=== PATIENT | female | born 1945 | race Two or more races ===

== ENCOUNTER → 2016-03-24 | Outpatient (CLI) | payer OTHER, MEDICARE ==
--- NOTE | 2016-03-24 16:17 | DX ---
Lumbar Spine, Two Views, at 12:31 hours Indication: Chronic pain. Technique: Upright AP and lateral views. Comparison: Sagittal reconstruction of the CT abdomen and pelvis dated April 18, 2015. Findings: 9 mm of anterolisthesis of L4 on L5, severe degenerative disk disease at L4-L5 and L5-S1, and mild to moderate degenerative disk disease at T11-T12 are all unchanged. The lumbar spine is oth erwise anatomically aligned. Large volume retained stool is present throughout the colon. The abdom inal aorta is normal caliber, with moderate calcified plaque. Impression: 1. Severe degenerative disk disease at L4-L5 and L5-S1 and grade 1 spondylolisthesis of L4 on L5 are unchanged since April 2015. 2. No acute compression fracture or bone lesion. 3. Constipation.
--- NOTE | 2016-03-24 16:55 | DX ---
Left Hip, Two Views Indication: Chronic pain. Technique: AP and frog-leg lateral views. Comparison: Portable pelvis dated December 27, 2014. Findings: The left total hip arthroplasty is well seated. No perihilar hardware fracture or lucency. Minimal osteoarthritis involves the sacroiliac joints and pubic symphysis. Right hip joint space is w ell preserved. Impression: 1. Well seated left total hip arthroplasty. 2. No fracture or stress response.
== END ==
LOC: FIMAGING 12:16
PROVIDERS: ATTEND Orthopaedic Surgery Orthopaedic Surgery of the Spine
DX: M51.37 Other intervertebral disc degeneration, lumbosacral region (principal); M51.36 Other intervertebral disc degeneration, lumbar region; M25.559 Pain in unspecified hip

== ENCOUNTER → 2016-04-01 | Outpatient (CLI) | payer OTHER, MEDICARE ==
--- NOTE | 2016-04-02 06:34 | MR ---
MRI of the Lumbar Spine (Without Contrast) Indication: Pain. Evaluate lumbar spine stenosis. Technique: Sagittal and axial T1 and T2 , and sagittal STIR MR sequences of the lumbar spine without contrast. Axial imaging from T12-S1. Comparison: Lumbar spine radiographs dated March 24, 2016 Findings: L4 is anterolisthesed 9 mm on L5. The lumbar spine is otherwise anatomically aligned. Disko genic Modic changes involve the L4-L5, L5-S1, and to a lesser degree T11-T12 levels. The bone marrow signal is otherwise normal. No compression fracture, pars defect, or bone marrow replacing lesion. The paraspinal soft tissues are normal. The aorta is normal caliber. The conus medullaris is at L1. T12-L1: Disk desiccation and minimal facet hypertrophy. Central canal and neural foramina are widely patent. L1-L2: Minimal facet hypertrophy. Normally hydrated disks. No central canal or neural foraminal steno sis. L2-L3: Facet hypertrophy and ligamentum flavum thickening results in minimal central canal narrowing and minimal bilateral neural foraminal narrowing. The disk is normally hydrated. L3-L4: Minimal posterior disk bulge, disk desiccation, facet hypertrophy and ligamentum flavum thicke namrata result in mild central canal narrowing and mild bilateral neural foraminal stenosis. The central canal measures 9 mm AP. L4-L5: Anterolisthesis of L4 on L5 combined with diffuse broad-based disk bulge, facet hypertrophy an d ligamentum flavum thickening results in severe central canal narrowing and severe bilateral neural foraminal stenosis, worse right than left. The central canal measures 4 mm AP. No cerebrospinal fluid is present around the compressed central nerve roots. The ventral lateral recess is severely narrowe d likely affecting the L5 nerve roots as they course through the L5-S1 neural foramina. L5-S1: Severe degenerative disk disease evidenced by disk height loss, disk desiccation, and uncovert ebral spurs. Moderate facet hypertrophy and ligamentum flavum thickening are present. Mild central ca nal narrowing and severe left and moderate to severe right neural foraminal stenosis. Impression: 1. Severe central canal and neural foraminal stenosis at L4-L5 due to diffuse broad-based disk bulge, anterolisthesis of L4 on L5, and facet hypertrophy. 2. Severe left and moderate to severe right neural foraminal narrowing at L5-S1 due to diffuse broad- based disk bulge, uncovertebral spurs and facet arthropathy. 3. No compression fracture or bone lesion.
== END ==
LOC: FIMAGING 15:13
PROVIDERS: ATTEND Orthopaedic Surgery Orthopaedic Surgery of the Spine
DX: M48.06 Spinal stenosis, lumbar region (principal); M48.07 Spinal stenosis, lumbosacral region; M51.86 Other intervertebral disc disorders, lumbar region; M51.87 Other intervertebral disc disorders, lumbosacral region; M43.16 Spondylolisthesis, lumbar region

== ENCOUNTER → 2016-05-12 | Outpatient (CLI) | payer OTHER, MEDICARE | LOC: FIMAGING 13:17 | DX: Z12.31 Encounter for screening mammogram for malignant neoplasm of breast (principal); Z85.3 Personal history of malignant neoplasm of breast; Z80.3 Family history of malignant neoplasm of breast | CPT/HCPCS: G0202 ==

== ENCOUNTER → 2016-05-13 | Outpatient (CLI) | payer OTHER, MEDICARE | LOC: FIMAGING 14:16 | PROVIDERS: ATTEND Neurological Surgery | DX: M54.5 Low back pain (principal); M43.16 Spondylolisthesis, lumbar region; M51.36 Other intervertebral disc degeneration, lumbar region; M48.06 Spinal stenosis, lumbar region ==

== ENCOUNTER → 2016-06-06 | Emergency (ER) | payer OTHER, MEDICARE ==
[~2016-06-06] MED LIST: ASPIRIN 81 MG CHEWABLE TAB PO ONE; HYOSCYAMINE SULFATE 0.125 MG TAB PO ONE; LIDOCAINE 2% VISCOUS 15 ML UDCUP PO ONE; MAG HYDROX/AL HYDROX/SIMETH 30 ML UDCUP PO ONE
--- NOTE | 2016-06-06 18:11 | EDPHY ---
H & P Stated Complaint: CHEST TIGHTNESS FOR 2 HRS HPI/ROS: CHIEF COMPLAINT: Chest tightness HISTORY OF PRESENT ILLNESS: The patient is a 70 y/o female arriving with her complaining of chest tightness with onset about 2.5 hours prior to arrival. She has a medical history that includes hypertension, hyperlipidemia, valvular disease, and GERD. She was most recently admitted in January 2016 for chest pain and had a cardiac work up that was negative; she did not have a stress test at that time but was scheduled for 1 as an outpatient. Per her recollection she had this testing done and there were no significant issues. She does not think she has ever had a cardiac catheterization. She has worn a Holter monitor twice, once in 2014 and again in August of 2015. She has had 3 echocardiograms within the last 4 years--1 in January of 2013, 1 in August of 2015, and 1 in January of 2016. Today, she walked her dog for about 30 minutes around 15:00 and felt normal at that time. Upon returning home, she developed chest pressure that has persisted. She cannot identify alleviating or aggravating factors. She does not describe the sensation as pain and denies radiation, dyspnea, nausea, or diaphoresis. She did not take any medication for it. She denies diabetes and has a remote history of smoking. She is unsure if cardiac disease runs in her family. REVIEW OF SYSTEMS: A ten point review of systems was performed and is negative with the exception of the items mentioned in the HPI. She notes that she has memory problems and states that these have been present since a stroke that she had while hospitalized in 2015. Source: Patient, Family - Personal History Current Tetanus/Diphtheria Vaccine: Yes Tetanus Vaccine Date: within 10 years - Medical/Surgical History PMH: PMH includes: 1. Breast Cancer - lumpectomy, radiation 2. Hypertension 3. Anemia secondary to gastric ulcer; GERD 4. Hypothyroidism 5. Depression 6. Migraines 7. Hyperlipidemia 8. Hypothyroidism 9. LBBB 10. Chronic low back pain 11. Left ventricular outflow obstruction 12. 13. Reports having a CVA with ongoing memory issues, though this is not reflected in our records. Prior medical records reviewed including admission 01/25/16 for chest pain. 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 Vargas Hx Asthma: No Hx Chronic Respiratory Disease: No Hx Diabetes: No Hx Cardiac Disease: Yes Hx Renal Disease: No Hx Cirrhosis: No Hx Alcoholism: No Hx HIV/AIDS: No Hx Splenectomy or Spleen Trauma: No Other PMH: pmh- hypothyroidism, depression, LBBB, hld, mitral valve reguritation , breast ca 1995 status post lumpectomy and radiation. psh- , R breast lumpectomy (cancerous) - Social History Smoking Status: Former smoker Additional Social History: Former smoker, quit over 30 years ago. 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 No alcohol use. at bedside. No illicit drugs. - Physical Exam Exam: General Appearance: Alert. Vital signs reviewed. Initial blood pressure 135/ 81, 111/59 at discharge. Eyes: Pupils equal and round, no conjunctival injection, no discharge. Anicteric. ENT, Mouth: Mucous membranes are moist, no oropharyngeal erythema or edema. Neck: No lymphadenopathy, supple. No jugular venous distention. No thyromegaly. Respiratory: Lungs are clear to auscultation; no wheezes, rales, or rhonchi. Cardiovascular: Regular rate and rhythm; no rub or gallop. 2/6 murmur over the 2nd right intercostal space and also over the 5th intercostal space left midclavicular line. Gastrointestinal: Abdomen is soft and nontender, no masses or organomegaly, bowel sounds normal. Skin: Warm and dry, no rashes on exposed skin, normal color. Back: Nontender to palpation over the thoracolumbar spine. No CVAT. Extremities: No lower extremity edema, no calf tenderness or swelling. Neurological: Alert and oriented. Moving all four extremities easily and equally. Psychiatric: Normal affect. Constitutional: Initial Vital Signs Temperature (C) 37.2 C 06/06/16 18:06 Heart Rate 82 06/06/16 18:06 Respiratory Rate 18 06/06/16 18:06 Blood Pressure 135/81 H 06/06/16 18:06 O2 Sat (%) 90 L 06/06/16 18:06 O2 Delivery Mode Room Air Allergies/Adverse Reactions: Penicillins Allergy (Unknown, Verified 06/06/16 18:05) Sulfa (Sulfonamide Antibiotics) Allergy (Unknown, Verified 06/06/16 18:05) Home Medications: Medication Instructions Recorded PARoxetine HCL [Paxil Cr] 37.5 mg PO DAILY 06/06/14 Pravastatin Sodium [Pravachol] 40 mg PO HS 06/06/14 Pantoprazole Sodium [Protonix 40mg 40 mg PO BID PRN 12/18/14 (*)] Acetaminophen [Tylenol 325mg (*)] 325 mg PO DAILY PRN 01/25/16 Aspirin [Aspirin 325 mg (*)] 325 mg PO DAILY 01/25/16 Cholecalciferol Vit D3 [Vitamin D3 2,000 units PO DAILY 01/25/16 2000 units tab (OTC)] Famotidine [Pepcid 20 MG (*)] 20 mg PO BID PRN #60 tab 01/25/16 Herbals/Supplements -Info Only 1 ea PO DAILY 01/25/16 Levothyroxine [Synthroid 125 mcg 125 mcg PO DAILY06 01/25/16 (*)] Loratadine [Claritin 10 mg] 10 mg PO DAILY 01/25/16 Melatonin [Melatonin 3 MG (*)] 3 mg PO HS PRN 01/25/16 Multivitamins [Multivitamin (*)] 1 each PO DAILY 01/25/16 SUMAtriptan [Imitrex 50 MG (*)] 25 - 50 mg PO DAILY PRN 01/25/16 Verapamil ER [Calan SR/ER 240MG 240 mg PO DAILY@18 01/25/16 (*)] guaiFENesin [Mucinex 600 MG (*)] 600 mg PO DAILY PRN 01/25/16 Medical Decision Making - Diagnostics EKG Interpretation: The 12 lead EKG was interpreted by myself. See hard copy and/or "tracemaster" electronic copy for interpretation. Left bundle branch block. Imaging: I viewed the images myself on the PACS system. No acute pulmonary disease. ED Course/Re-evaluation: IV established. Labs drawn including CBC, CHEM, troponin. Chest x-ray ordered. Patient placed on playground monitor. 324mg PO aspirin and GI cocktail administered. I have reviewed her previous records including echocardiograms. 1843: Reevaluated patient. She feels like "something is missing" in her chest, like maybe her heart skipped a beat. I sought clarification from the patient regarding her reported CVA during an admission here in 2014, as there is no information of this in her record nor any brain imaging. Her says "they didn't call it a stroke," but they "made a large effort to tell us what to look for." 1949: Reevaluated patient. She is feeling improved and wants to go home rather than continue workup here. I've advised her to follow up with Dr. Vargas on Thursday and given strict return precautions for worsening symptoms. She agrees with this plan. She understands that a single troponin obtained 3 hours after the onset of her pain/pressure is not sufficient to eliminate the possibility of this being an acute coronary syndrome. She understands that acute coronary syndrome can result in myocardial infarction and even . We discussed her HEART score of four--which gives her a 12-16.6 % risk of major cardiac event ( mortality, mi, or coronary revascularization) within the next 6 weeks. I have offered hospitalization for repeat troponin and other testing as warranted. She is not interested in hospitalization. Her initial pulse ox was noted to be 90% on room air. At discharge she had a pulse ox of 96%. Differential Diagnosis: Chest pain including but not limited to myocardial ischemia, pulmonary embolus, chest wall pain, pleural inflammation and pulmonary infectious causes. - Data Points Laboratory Results: Laboratory Results 06/06/16 18:15 06/06/16 18:15 Medications Given: Discontinued Medications Al Hydroxide/Mg Hydroxide (Maalox Susp) 30 ml PO ONCE ONE Stop: 06/06/16 18:28 Last Admin: 06/06/16 18:58 Dose: 30 ml Aspirin (Aspirin) 324 mg PO EDNOW ONE Stop: 06/06/16 18:28 Last Admin: 06/06/16 18:57 Dose: 324 mg Hyoscyamine Sulfate (Levsin, Hyomax-Sl) 0.25 mg PO ONCE ONE Stop: 06/06/16 18:28 Last Admin: 06/06/16 18:57 Dose: 0.25 mg Lidocaine (Lidocaine 2% Viscous) 15 ml PO ONCE ONE Stop: 06/06/16 18:28 Last Admin: 06/06/16 18:57 Dose: 15 ml Departure - Departure Disposition: Home, Routine, Self-Care Clinical Impression: Chest pain Qualifiers: Chest pain type: other chest pain Qualified Code(s): R07.89 - Other chest pain Condition: Good Instructions: Chest Pain (ED) Additional Instructions: 1. Follow up with Dr. Vargas's office on Thursday. 2. Return to the ED for any worsening of condition including chest pain, shortness of breath, fainting, and vomiting. Referrals: Rylan Vargas MD [Medical Doctor] - As per Instructions Report Scribed for: Shona Padilla Report Scribed by: Nella Fitzgerald Date of Report: 06/06/16 Time of Report: 18:31 Physician Review and Approval Statement: 06/06/16 18:11 Portions of this note were transcribed by the medical investigator. I, Dr. Shona Padilla, personally performed the history, physical exam, and medical decision- making; and confirmed the accuracy of the information in the transcribed note.
--- NOTE | 2016-06-06 18:16 | CPEKG ---
Heart Rate: 85 RR Interval: 706 P-R Interval: 140 QRSD Interval: 126 QT Interval: 440 QTC Interval: 524 P [place]: 36 QRS [place]: -1 T Wave [place]: 100 EKG Severity - ABNORMAL ECG - EKG Impression: SINUS RHYTHM EKG Impression: PROBABLE LEFT ATRIAL ABNORMALITY EKG Impression: LEFT BUNDLE BRANCH BLOCK Electronically Signed By: Edita Barajas 07-Jun-2016 19:22:13
[2016-06-06 18:34] LABS: % IMMATURE GRANULYOCYTES 0.4 % (0.0-1.1); ABSOLUTE IMMATURE GRANULOCYTES 0.04 10^3/uL (0.00-0.10); ADD DIFF? NO; ADD MORPH? NO; ADD SCAN? NO; ATYPICAL LYMPHOCYTE FLAG 0 (0-99); FRAGMENT RBC FLAG 0 (0-99); HEMATOCRIT 37.3 % (38.0-47.0); HEMOGLOBIN 12.4 g/dL (12.6-16.3); LEFT SHIFT FLG 0 (0-99); LIPEMIA HEMOLYSIS FLAG 80 (0-99); MEAN CELL HEMOGLOBIN 29.2 pg (27.9-34.1); MEAN CELL HEMOGLOBIN CONCENTR. 33.2 g/dL (32.4-36.7); MEAN CELL VOLUME 87.8 fL (81.5-99.8); MEAN PLATELET VOLUME 11.6 fL (8.7-11.7); PLATELET CLUMPS FLAG 10 (0-99); PLATELET COUNT 212 10^3/uL (150-400); RED BLOOD CELL COUNT 4.25 10^6/uL (4.18-5.33); RED CELL DISTRIBUTION WIDTH 13.8 % (11.5-15.2)
[2016-06-06 18:47] LABS: ANION GAP 11 mEq/L (8-16); CALCIUM 9.3 mg/dL (8.5-10.4); CARBON DIOXIDE 23 mEq/l (22-31); CHLORIDE 97 mEq/L (97-110); CREATININE 0.7 mg/dL (0.6-1.0); GLOMERULAR FILTRATION RATE > 60; GLUCOSE 103 mg/dL (70-100); POTASSIUM 4.2 mEq/L (3.5-5.2); SODIUM 131 mEq/L (134-144)
[2016-06-06 18:59] LABS: TROPONIN I < 0.012 ng/mL (0-0.034)
[2016-06-06 20:14] VITALS: BP 111/59; PULSE 76; RESP 16; TEMP 98.4; O2SAT 96
== END | disposition home or self-care (01) ==
DX: R07.89 Other chest pain (principal); I10 Essential (primary) hypertension; Z79.82 Long term (current) use of aspirin; Z85.3 Personal history of malignant neoplasm of breast; Z86.73 Personal history of transient ischemic attack (TIA), and cerebral infarction without residual deficits; Z87.891 Personal history of nicotine dependence

== ENCOUNTER 2016-06-11 16:24 | Emergency (ER) | payer OTHER, MEDICARE ==
[2016-06-11 16:30] VITALS: TEMP 98.4
--- NOTE | 2016-06-11 16:37 | EDPHY ---
H & P Time Seen by Provider: 06/11/16 16:36 HPI/ROS: CHIEF COMPLAINT: Dizziness, confusion, weakness. HISTORY OF PRESENT ILLNESS: The patient is a 70-year-old female with a history of hypertension, anemia, and hyperlipidemia who presents after an episode of confusion and dizziness. She felt fine this morning. She drove to [employer] this afternoon for an appointment and while she was in the parking lot, she was unable to remember where she was going. Eventually she remembered and walked to the office. While she was in the office, she felt woozy. BP/NR normal in the office. She feels better now. This appt was an ED follow up cardiology appointment; she was seen in the ER a week ago for chest pain. During the ED visit, she had a negative x-ray, blood work, chest CT, and unchanged echocardiogram. She has felt fine at home since then. She denies numbness, weakness, chest pain, shortness of breath, headache, lightheadedness, or other complaints at this time. REVIEW OF SYSTEMS: A complete 10-point review of systems was performed and is negative except for those items mentioned in the HPI. Past Medical/Surgical History: Breast cancer, hypertension, anemia, GERD, gastric ulcer, hypothyroidism, depression, migraines, hyperlipidemia, LBBB, chronic low back pain, left ventricular outflow obstruction , CVA. I reviewed the patient's past medical notes including ED visit from 06/06/2016. Social History: Former smoker. Smoking Status: Former smoker Physical Exam: General Appearance: Alert, pleasant, talkative, no confused Eyes: Pupils equal and round, no conjunctival pallor or injection ENT, Mouth: Mucous membranes moist Neck: Normal inspection Respiratory: Lungs are clear to auscultation Cardiovascular: Regular rate and rhythm, 2/6 systolic murmur Gastrointestinal: Abdomen is soft and non-tender Neurological: Alert, oriented x3, cranial nerves II through XII intact, motor 5 /5, sensory intact to light touch, normal gait. Decreased hearing in right ear. Skin: Warm and dry, no rash Extremities: Nontender, no pedal edema Psychiatric: Mood and affect normal Constitutional: Initial Vital Signs Temperature (C) 36.9 C 06/11/16 16:26 Heart Rate 66 06/11/16 16:26 Respiratory Rate 18 06/11/16 16:26 Blood Pressure 146/57 H 04/12/17 16:26 O2 Sat (%) 95 06/11/16 16:26 O2 Delivery Mode Room Air Allergies/Adverse Reactions: Penicillins Allergy (Unknown, Verified 06/11/16 16:26) Sulfa (Sulfonamide Antibiotics) Allergy (Unknown, Verified 06/11/16 16:26) Home Medications: Medication Instructions Recorded PARoxetine HCL [Paxil Cr] 37.5 mg PO DAILY 06/06/14 Pravastatin Sodium [Pravachol] 40 mg PO HS 06/06/14 Pantoprazole Sodium [Protonix 40mg 40 mg PO BID PRN 12/18/14 (*)] Acetaminophen [Tylenol 325mg (*)] 325 mg PO DAILY PRN 01/25/16 Aspirin [Aspirin 325 mg (*)] 325 mg PO DAILY 01/25/16 Cholecalciferol Vit D3 [Vitamin D3 2,000 units PO DAILY 01/25/16 2000 units tab (OTC)] Famotidine [Pepcid 20 MG (*)] 20 mg PO BID PRN #60 tab 01/25/16 Herbals/Supplements -Info Only 1 ea PO DAILY 01/25/16 Levothyroxine [Synthroid 125 mcg 125 mcg PO DAILY06 01/25/16 (*)] Loratadine [Claritin 10 mg] 10 mg PO DAILY 01/25/16 Melatonin [Melatonin 3 MG (*)] 3 mg PO HS PRN 01/25/16 Multivitamins [Multivitamin (*)] 1 each PO DAILY 01/25/16 SUMAtriptan [Imitrex 50 MG (*)] 25 - 50 mg PO DAILY PRN 01/25/16 Verapamil ER [Calan SR/ER 240MG 240 mg PO DAILY@18 01/25/16 (*)] guaiFENesin [Mucinex 600 MG (*)] 600 mg PO DAILY PRN 01/25/16 Medical Decision Making - Diagnostics EKG Interpretation: EKG interpreted by me reveals normal sinus rhythm, rate 66, left bundle branch block. ED Course/Re-evaluation: 70-year-old female presents with weakness after feeling dizzy and confused just prior to arrival. She was heading to [facility] for a follow up appointment when she couldn't remember which building it was. She became dizzy in their clinic but this resolved. Her blood pressure was normal. On arrival here her only complaint is weakness, however she appears well and is speaking coherently and appropriately. I performed a full neuro exam that is negative. We will check basic blood work. An IV was established. 173: I reviewed the patient's lab work. It is unremarkable. I reassessed her at this time. She is lying comfortably in bed watching television with no complaints. She feels well and is ready to go home. Unclear etiology of symptoms, but may be related to hypoglycemia given that she did not eat since early this morning. She was able to tolerate oral fluids and food the emergency department. Ambulates with a steady gait. She is safe for discharge at this time. She is comfortable with this plan. Differential Diagnosis: Differential diagnosis includes though is not limited to anemia, hypoglycemia, cardiac dysrhythmia, CVA, TIA, GI bleed. - Data Points Laboratory Results: Laboratory Results 06/11/16 16:41 06/11/16 16:41 06/11/16 06/11/16 16:41 16:41 WBC 9.87 10^3/uL H 10^3/uL (3.80-9.50) RBC 4.49 10^6/uL 10^6/uL (4.18-5.33) Hgb 13.1 g/dL g/dL (12.6-16.3) Hct 40.3 % % (38.0-47.0) MCV 89.8 fL fL (81.5-99.8) MCH 29.2 pg pg (27.9-34.1) MCHC 32.5 g/dL g/dL (32.4-36.7) RDW 14.0 % % (11.5-15.2) Plt Count 247 10^3/uL 10^3/uL (150-400) MPV 11.6 fL fL (8.7-11.7) Neut % (Auto) 72.5 % % (39.3-74.2) Lymph % (Auto) 17.0 % % (15.0-45.0) [place] % (Auto) 7.7 % % (4.5-13.0) Eos % (Auto) 2.2 % % (0.6-7.6) Baso % (Auto) 0.4 % % (0.3-1.7) Nucleat RBC Rel Count 0.0 % % (0.0-0.2) Absolute Neuts (auto) 7.15 10^3/uL H 10^3/uL (1.70-6.50) Absolute Lymphs (auto) 1.68 10^3/uL 10^3/uL (1.00-3.00) Absolute Monos (auto) 0.76 10^3/uL 10^3/uL (0.30-0.80) Absolute Eos (auto) 0.22 10^3/uL 10^3/uL (0.03-0.40) Absolute Basos (auto) 0.04 10^3/uL 10^3/uL (0.02-0.10) Absolute Nucleated RBC 0.00 10^3/uL 10^3/uL (0-0.01) Immature Gran % 0.2 % % (0.0-1.1) Immature Gran # 0.02 10^3/uL 10^3/uL (0.00-0.10) Sodium 137 mEq/L mEq/L (134-144) Potassium 4.2 mEq/L mEq/L (3.5-5.2) Chloride 102 mEq/L mEq/L (97-110) Carbon Dioxide 26 mEq/l mEq/l (22-31) Anion Gap 9 mEq/L mEq/L (8-16) BUN 20 mg/dL mg/dL (7-23) Creatinine 0.8 mg/dL mg/dL (0.6-1.0) Estimated GFR > 60 Glucose 86 mg/dL mg/dL (70-100) Calcium 9.7 mg/dL mg/dL (8.5-10.4) Departure - Departure Disposition: Home, Routine, Self-Care Clinical Impression: Generalized weakness Condition: Good Instructions: Weakness (ED) Additional Instructions: Follow up with your primary care provider for reevaluation. Return to the emergency department if you experience any serious worsening of condition. Referrals: MARYANNE ESTRADA [Primary Care Provider] - As per Instructions Report Scribed for: Edita Barajas Report Scribed by: John Kirkland Date of Report: 06/11/16 Time of Report: 16:51 Physician Review and Approval Statement: 06/11/16 16:51 Portions of this note were transcribed by a medical translator. I personally performed a history, physical exam, medical decision making, and confirmed accuracy of information the transcribed note.
--- NOTE | 2016-06-11 16:43 | CPEKG ---
Heart Rate: 66 RR Interval: 909 P-R Interval: 144 QRSD Interval: 122 QT Interval: 468 QTC Interval: 491 P [place]: 66 QRS [place]: -8 T Wave [place]: 83 EKG Severity - ABNORMAL ECG - EKG Impression: SINUS RHYTHM EKG Impression: PROBABLE LEFT ATRIAL ABNORMALITY EKG Impression: LEFT BUNDLE BRANCH BLOCK Electronically Signed By: Edita Barajas 11-Jun-2016 19:31:54
[2016-06-11 16:57] LABS: % IMMATURE GRANULYOCYTES 0.2 % (0.0-1.1); ABSOLUTE IMMATURE GRANULOCYTES 0.02 10^3/uL (0.00-0.10); ADD DIFF? NO; ADD MORPH? NO; ADD SCAN? NO; ATYPICAL LYMPHOCYTE FLAG 10 (0-99); FRAGMENT RBC FLAG 0 (0-99); HEMATOCRIT 40.3 % (38.0-47.0); HEMOGLOBIN 13.1 g/dL (12.6-16.3); LEFT SHIFT FLG 0 (0-99); LIPEMIA HEMOLYSIS FLAG 80 (0-99); MEAN CELL HEMOGLOBIN 29.2 pg (27.9-34.1); MEAN CELL HEMOGLOBIN CONCENTR. 32.5 g/dL (32.4-36.7); MEAN CELL VOLUME 89.8 fL (81.5-99.8); MEAN PLATELET VOLUME 11.6 fL (8.7-11.7); PLATELET CLUMPS FLAG 10 (0-99); PLATELET COUNT 247 10^3/uL (150-400); RED BLOOD CELL COUNT 4.49 10^6/uL (4.18-5.33)
[2016-06-11 17:24] LABS: ANION GAP 9 mEq/L (8-16); CALCIUM 9.7 mg/dL (8.5-10.4); CARBON DIOXIDE 26 mEq/l (22-31); CHLORIDE 102 mEq/L (97-110); CREATININE 0.8 mg/dL (0.6-1.0); GLOMERULAR FILTRATION RATE > 60; GLUCOSE 86 mg/dL (70-100); POTASSIUM 4.2 mEq/L (3.5-5.2); SODIUM 137 mEq/L (134-144)
[2016-06-11 17:48] VITALS: BP 130/88; PULSE 77; RESP 14; O2SAT 94
== END 2016-06-11 17:47 | disposition home or self-care (01) ==
DX: R53.1 Weakness (principal); I10 Essential (primary) hypertension; Z87.891 Personal history of nicotine dependence; Z85.3 Personal history of malignant neoplasm of breast; Z79.82 Long term (current) use of aspirin; Z86.73 Personal history of transient ischemic attack (TIA), and cerebral infarction without residual deficits

== ENCOUNTER → 2016-06-11 | Outpatient (CLI) | payer OTHER, MEDICARE | LOC: BHFA 15:30 | PROVIDERS: ATTEND Internal Medicine Cardiovascular Disease | DX: I35.1 Nonrheumatic aortic (valve) insufficiency (principal); I44.7 Left bundle-branch block, unspecified ==

== ENCOUNTER → 2016-07-23 | Outpatient (CLI) | payer OTHER, MEDICARE | LOC: FIMAGING 13:08 | PROVIDERS: ATTEND Internal Medicine Hematology & Oncology | DX: M50.30 Other cervical disc degeneration, unspecified cervical region (principal) ==

== ENCOUNTER → 2016-07-25 | Outpatient (CLI) | payer OTHER, MEDICARE | LOC: BHFA 14:00 | PROVIDERS: ATTEND Internal Medicine Cardiovascular Disease | DX: R07.9 Chest pain, unspecified (principal); I44.7 Left bundle-branch block, unspecified | CPT/HCPCS: 78452; 93017; A9500; J2785 ==

== ENCOUNTER → 2016-08-06 | Outpatient (CLI) | payer OTHER, MEDICARE | LOC: BHFA 11:30 | PROVIDERS: ATTEND Internal Medicine Cardiovascular Disease | DX: I34.0 Nonrheumatic mitral (valve) insufficiency (principal); I42.9 Cardiomyopathy, unspecified ==

== ENCOUNTER → 2016-08-11 | Outpatient (CLI) | payer OTHER, MEDICARE | LOC: BHFA 13:00 | PROVIDERS: ATTEND Internal Medicine Interventional Cardiology | DX: I35.1 Nonrheumatic aortic (valve) insufficiency (principal); I42.2 Other hypertrophic cardiomyopathy; I44.7 Left bundle-branch block, unspecified; I34.0 Nonrheumatic mitral (valve) insufficiency ==

== ENCOUNTER 2016-09-17 05:56 | Observation (INO) | payer OTHER, MEDICARE ==
--- NOTE | 2016-09-17 06:37 | PDHPUP ---
History & Physical Update H&P update statement: This history and physical update is based on an assessment of the patient which was completed after admission or registration (within 24 hours), but prior to the surgery/procedure. H&P update: H&P reviewed & patient examined, no change in patient's condition since H&P completed
[2016-09-17] MEDS ORDERED: LR 1,000 ML IV ONE (06:44)
[2016-09-17] MEDS ORDERED: LIDOCAINE 1% 2 ML INJ ONE (06:50)
[2016-09-17] MEDS ORDERED: BACITRACIN 50,000 UNITS/10 ML SYR IRR ONE (06:54)
[2016-09-17] MEDS ORDERED: THROMBIN (BOVINE) 5,000 UNIT VIAL TP ONE (06:54)
[2016-09-17] MEDS ORDERED: BUPIVACAINE/EPI 0.25% 30 ML SDV ONE (06:54)
[2016-09-17] MEDS ORDERED: ceFAZolin 2 GM/DEXTROSE 100 ML IV ONE (07:00)
--- NOTE | 2016-09-17 07:27 | PDANEPAE ---
ANE Past Medical History - Cardiovascular History Hx Hypertension: Yes Hx Arrhythmias: Yes Hx Chest Pain: No Hx Coronary Artery / Peripheral Vascular Disease: Yes Hx CHF / Valvular Disease: Yes Hx Palpitations: No Cardiovascular History Comment: AORTIC REGURG. MITRAL REGURG. HX OF SVT. LBBB. HTN. HYPERLIPIDEMIA - Pulmonary History Hx COPD: No Hx Asthma/Reactive Airway Disease: No Hx Recent Upper Respiratory Infection: No Hx Oxygen in Use at Home: No Hx Sleep Apnea: No Sleep Apnea Screening Result - Last Documented: Negative Pulmonary History Comment: CHILDHOOD ASTHMA. SEASONAL ALLERGIES - Neurologic History Hx Cerebrovascular Accident: Yes Hx Seizures: No Hx Dementia: No Neurologic History Comment: TIA 05/2014. SINUS HEADACHES - Endocrine History Hx Diabetes: No Hypothyroid: Yes Hyperthyroid: No Obesity: no Endocrine History Comment: HYPOTHYROIDISM - Renal History Hx Renal Disorders: Yes Renal History Comment: PERIODIC URGENCY WITH AGE - Liver History Hx Hepatic Disorders: No - Neurological & Psychiatric Hx Hx Neurological and Psychiatric Disorders: Yes Neurological / Psychiatric History Comment: DEPRESSION - Cancer History Hx Cancer: Yes Cancer History Comment: BREAST CANCER- LUMPECTOMY AND RADIATION. ABNORMAL CERVICAL CELLS - Congenital Disorder History Hx Congenital Disorders: No - GI History Hx Gastrointestinal Disorders: Yes Gastrointestinal History Comment: HEARTBURN. HX OF EGD'S AND COLONOSCOPIES - Other Health History Other Health History: WEARS READING GLASSES - Chronic Pain History Chronic Pain: Yes (UPPER AND LOWER BACK) - Surgical History Prior Surgeries: LEFT KODI. ANGELA CATARACT. RT BREAST LUMPECTOMY 1994. EGD/ COLONOSCOPY. RT KNEE SCOPE. ANE Review of Systems - Exercise capacity METS (RN): 4 METS ANE Patient History - Allergies Allergies/Adverse Reactions: Penicillins Allergy (Unknown, Verified 09/08/16 14:36) Unknown Sulfa (Sulfonamide Antibiotics) Allergy (Unknown, Verified 09/08/16 14:36) Unknown - Home Medications Home Medications: PARoxetine HCL [Paxil Cr] 37.5 mg PO DAILY 06/06/14 [Last Taken 09/17/16 06:00] Pravastatin Sodium [Pravachol] 40 mg PO HS 06/06/14 [Last Taken 09/16/16 21:00] Pantoprazole Sodium [Protonix 40mg (*)] 40 mg PO BID PRN 12/18/14 [Last Taken 06:00] Aspirin [Aspirin 325 mg (*)] 325 mg PO DAILY 01/25/16 [Last Taken 09/16/16 18:00 ] Loratadine [Claritin 10 mg] 10 mg PO DAILY 01/25/16 [Last Taken 09/16/16 07:00] Verapamil ER [Calan SR/ER 240MG (*)] 240 mg PO DAILY@18 01/25/16 [Last Taken 19:00] Levothyroxine [Synthroid 112 mcg (*)] 112 mcg PO DAILY06 08/19/16 [Last Taken 05:30] - NPO status NPO Since - Liquids (Date): 09/16/16 NPO Since - Liquids (Time): 22:00 NPO Since - Solids (Date): 09/16/16 NPO Since - Solids (Time): 18:00 - Smoking Hx Smoking Status: Former smoker - Family Anes Hx Family Hx Anesthesia Complications: NONE ANE Labs/Vital Signs - Vital Signs Blood Pressure: 157/65 Heart Rate: 78 Respiratory Rate: 16 O2 Sat (%): 93 Height: 152.4 cm Weight: 54.431 kg ANE Physical Exam - Airway Neck exam: FROM Mallampati Score: Class 1 Mouth exam: normal dental/mouth exam - Pulmonary Pulmonary: no respiratory distress - Cardiovascular Cardiovascular: regular rate and rhythym - ASA Status ASA Status: II ANE Anesthesia Plan Anesthesia Plan: general endotracheal anesthesia
[2016-09-17] MEDS ORDERED: MIDAZOLAM 2 MG/2 ML VIAL IVP ONE (07:28)
[2016-09-17] MEDS ORDERED: MIDAZOLAM 2 MG/2 ML VIAL ONE (07:30)
[2016-09-17] MEDS ORDERED: PROPOFOL/EMULSION 500 MG/50 ML BOTTLE IV ONE (07:32)
[2016-09-17] MEDS ORDERED: fentaNYL 100 MCG/2 ML INJ ONE ×3 (07:38→10:46)
[2016-09-17] MEDS ORDERED: REMIFENTANIL HCL 1 MG VIAL ONE ×2 (07:40)
[2016-09-17] MEDS ORDERED: VASOPRESSIN 20 UNIT/ML VIAL ONE (08:25)
[2016-09-17] MEDS ORDERED: ONDANSETRON 4 MG/2 ML VIAL ONE (09:15)
[2016-09-17] MEDS ORDERED: DEXAMETHASONE 4 MG/ML VIAL ONE (09:15)
[2016-09-17] MEDS ORDERED: PANTOPRAZOLE SODIUM 40 MG TAB PO PRN (10:21)
--- NOTE | 2016-09-17 10:21 | SOAPPROG ---
SOAP Progress Note Assessment/Plan: Post Op Visit: S: Awake and alert. NAD. Pt with expected neck pain O: AFVSS/PERRLA/EOMI no droop CN 2-12 grossly intact +lt touch 5/5 BUE/BLE = CDI neck soft and supple A/P: 71 yo female that is s/p ACDF C3/4 -orders in place -call with any questions or concerns -take medications as directed -pt seen by Dr Fagan as well 09/17/16 10:18 Objective: Vital Signs Temp Pulse Resp BP Pulse Ox 36.9 C 78 16 157/65 H 93 09/17/16 07:08 09/17/16 07:27 09/17/16 07:27 09/17/16 07:27 09/17/16 07:27 ICD10 Worksheet Patient Problems: Problems Problem Status Onset Arthrodesis status Acute Cervical radicular pain Acute Cervical spinal stenosis Acute Palpitations Acute Primary localized osteoarthritis of left hip Acute - ICD10 Problem Qualifiers (1) Cervical spinal stenosis (2) Cervical radicular pain (3) Arthrodesis status
[2016-09-17] MEDS ORDERED: LACTULOSE 20 GM/30 ML UDCUP PO PRN (10:22)
[2016-09-17] MEDS ORDERED: morphINE PCA 30 MG/30 ML PCA IV PRN (10:22)
[2016-09-17] MEDS ORDERED: NALOXONE HCL 0.4 MG/ML INJ IVP PRN ×2 (10:22→10:26)
[2016-09-17] MEDS ORDERED: POLYETHYLENE GLYCOL 3350 17 GM PKT PO PRN (10:22)
[2016-09-17] MEDS ORDERED: diphenhydrAMINE 25 MG CAP PO PRN (10:22)
[2016-09-17] MEDS ORDERED: ONDANSETRON DISINTEGRATING 4 MG TAB PO PRN (10:22)
[2016-09-17] MEDS ORDERED: MAGNESIUM HYDROXIDE 30 ML UDCUP PO PRN (10:22)
[2016-09-17] MEDS ORDERED: oxyCODONE IR 5 MG TAB PO PRN (10:22)
[2016-09-17] MEDS ORDERED: ONDANSETRON 4 MG/2 ML VIAL IVP PRN (10:22)
[2016-09-17] MEDS ORDERED: BISACODYL 10 MG SUPP PR PRN (10:22)
[2016-09-17] MEDS ORDERED: fentaNYL 100 MCG/2 ML INJ IVP PRN (10:26)
[2016-09-17] MEDS ORDERED: LABETALOL HCL 50 MG/10 ML SYR IVP PRN (10:26)
[2016-09-17] MEDS ORDERED: hydrALAZINE 20 MG/ML VIAL IVP PRN (10:27)
[2016-09-17] MEDS ORDERED: NS 1,000 ML IV SCH (10:30)
--- NOTE | 2016-09-17 10:30 | POSTANESTH ---
Post Anesthetic Evaluation Cardiovascular Status: Normal, Stable, Similar to Pre-Op Cond Respiratory Status: Normal, Stable Level of Consciousness/Mental Status: Mildly Sleepy, Arousable Pain Control: Adequate, Prn Tx Ordered Nausea/Vomiting Control: Adequate, Prn Tx Ordered Complications Possibly Related to Anesthesia: None Noted
[2016-09-17] MEDS ORDERED: LABETALOL HCL 50 MG/10 ML SYR ONE (10:46)
[2016-09-17] MEDS: HYDROCODONE/APAP 5/325 TAB PO PRN ×2 (14:07→20:05)
[2016-09-17] MEDS: ceFAZolin 2 GM/DEXTROSE 100 ML IV SCH ×2 (14:07→21:47)
[2016-09-17] MEDS: ACETAMINOPHEN 500 MG TAB PO SCH ×2 (14:08→21:34)
[2016-09-17] MEDS ORDERED: VERAPAMIL ER 240 MG TAB PO SCH (18:00)
[2016-09-17] MEDS: FAMOTIDINE 20 MG TAB PO SCH (20:09)
[2016-09-17] MEDS: METHOCARBAMOL 750 MG TAB PO PRN (20:09)
[2016-09-17] MEDS: SENNOSIDES/DOCUSATE SODIUM TAB PO SCH (20:10)
[2016-09-17] MEDS ORDERED: PRAVASTATIN SODIUM 40 MG TAB PO SCH (21:00)
--- NOTE | 2016-09-17 22:55 | GOP ---
[f rep st] OPERATIVE REPORT DATE OF OPERATION: 09/17/2016 SURGEON: Randal Fagan MD TILE SETTER APPRENTICE: Natanael Truong PA-C. PREOPERATIVE DIAGNOSIS: Cervical spondylosis with severe stenosis C3-4 and cord compression, myelop athy. POSTOPERATIVE DIAGNOSIS: Cervical spondylosis with severe stenosis C3-4 and cord compression, myelo annamarie. PROCEDURE PERFORMED: Anterior cervical diskectomy with arthrodesis and decompression C3-4 (46090), same incision bone graft harvest, placement of anterior cervical plate C3-4, placement of biomechani carina intervertebral device C3-4, microscope. FINDINGS: ESTIMATED BLOOD LOSS: 25 cc. INDICATIONS: The patient is a 71-year-old who needs lumbar surgery for terrible spondylolisthesis a nd stenosis at L4-5, but was found to be myelopathic on exam. An MRI of the cervical spine demonstr ated some evidence of cord compression at C3-4 with some myelomalacia there that was mild, but never theless she had severe stenosis. She had multilevel cervical spondylosis throughout the entire cerv ical spine, but I suggested at least a single-level ACDF to try to protect her spinal cord during he r lumbar surgery. I did not think it was reasonable or prudent procedure lumbar surgery until all o f the cervical spine was addressed. She knew that she had adjacent segments of disease in her cervi carina spine. Our goal was simply to address the 1 level where there appeared to be some degree of cor d compression. The risk of pseudoarthrosis, adjacent segment disease, spinal cord injury, hematoma, and possible need for future spine surgery in the cervical spine, was discussed. She understood th benjamin risks. She wanted to proceed. DESCRIPTION OF PROCEDURE: The patient was taken to the operating room, placed in supine position. A midline shoulder roll was placed. Arms were tucked at the side. Head was kept neutral. The occi put was gently extended and she was sterilely prepped and draped in usual fashion. Before we starte d, she had diminished left-sided motor-evoked potentials and we did reposition her head to see if th is has any impact. Her blood pressure was good and none of this had any impact on her motor-evoked potentials. We felt that it could be a residual paralytic agent on board and we were told that it w as safe to proceed. She was sterilely prepped and draped. A right-sided incision was made. The pagan bcutaneous tissue was dissected using Bovie cautery down through the platysma. We used a combinatio n of sharp and blunt dissection medial to the sternocleidomastoid and lateral to the strap muscles, down to the prevertebral space. A localizing x-ray was taken. Distraction pins were placed at the C3-4 vertebral body. There was retrolisthesis of C3 on C4. We opened the disk and under the micros cope removed the disk and cartilaginous endplates. We drilled and harvested subchondral bone for au tologous grafting purposes and posteriorly coming off the inferior lip of C3 there was a big bone sp ur going in the spinal canal and this was completely removed. The spinal canal was decompressed. W e decompressed the exiting C4 nerve roots. We chose an 8 mm PEEK intervertebral device packed with autologously harvested bone dust and then inserted it a C3-4. We then attempted to reduce the retro listhesis of C3 on C4 and it simply would not come forward despite considerable force being applied. We removed our distraction pin, shot an x-ray, and then placed a 22 mm plate with screws in the C3 -C4 vertebral body. So, on x-ray, we were happy with positioning of the screws. We fell that 14 mm screws were better at C4 and 16 mm C3. We tightened these down according to company specification and then placed locking caps over them. A final x-ray was taken. All the hardware was in excellent position. We achieved meticulous hemostasis and then placed 0.25% Marcaine with epinephrine in the prevertebral space. We then closed the platysma with interrupted Vicryl sutures. The skin was sydni sed with interrupted Vicryl sutures. The patient was reversed from anesthesia, extubated, and trans ferred to the recovery room in stable condition. There were no complications. INSTRUMENTATION: A [employer] Snowcap cervical plate with a Manuel intervertebral device 1 3 x 16 x 8. A 22 mm plate was used, 16 mm screws on the top, 14 mm screws on the bottom, and medium locking caps. COMPLICATIONS: None. /[id number]/MODL
[2016-09-17 23:27] VITALS: O2SAT 96
[2016-09-18] MEDS: HYDROCODONE/APAP 5/325 TAB PO PRN ×2 (01:54→09:36)
[2016-09-18] MEDS: METHOCARBAMOL 750 MG TAB PO PRN ×2 (01:55→09:36)
[2016-09-18] MEDS ORDERED: LEVOTHYROXINE 112 MCG TAB PO SCH (06:00)
[2016-09-18] MEDS: ACETAMINOPHEN 500 MG TAB PO SCH (06:07)
[2016-09-18 08:04] VITALS: BP 115/60; PULSE 81; RESP 14; TEMP 99
--- NOTE | 2016-09-18 08:23 | NEUSURGPN ---
Date of Surgery: 09/17/16 Post Op Day: 1 Assessment/Plan: Assessment: 71 yo female that is s/p ACDF C3/4 Plan: -s/p ACDF C3/4: doing well this am -swallowing fine -pain well controlled -post op xrays pending -collar at all times -incision CDI -PT/OT pending this am -call with any questions or concerns -plan for dc later today -take medications as directed -pt seen by Dr Fagan as well 09/17/16 10:18 Subjective: Awake and alert. NAD. Eating/drinking and voiding. No f/c/n/v/d. No arnold/cp/ sob/abd or gu complaints. Objective: AFVSS/PERRLA/EOMI no droop CN 2-12 grossly intact +lt touch 5/5 BUE/BLE = CDI neck soft and supple Neuro Check Frequency: per routine Urinary Catheter in Place: No - Physician Discussed Patient with Dr.: Rylan Patient Seen by DrMelvi: Rylan Neurosurgery Physical Exam - Vitals, I&O, Labs I and O 09/17/16 09/18/16 09/19/16 05:59 05:59 05:59 Intake Total 2308 Output Total 4175 Balance -1867 Weight 54.431 kg Intake: Oral (ml) 5 IV Intake (ml) 1750 IV Infused (ml) 553 Lr 1,000 ml @ KVO IV ONCE 453 ONE Rx#:[id number] ceFAZolin 2 GM/DEXTROSE 100 100 ml @ 200 mls/hr IV Q8HRS RUBEN Rx#:[id number] Output: Urine (ml) 4150 Toilet 4150 Estimated Blood Loss (ml) 25 Other: Intake Quantity Yes Sufficient Number of Voids Toilet 1 Bladder Scan Volume (ml) 367 Vital Signs Temp Pulse Resp BP Pulse Ox 37.2 C 81 14 115/60 96 09/18/16 08:00 09/18/16 08:00 09/18/16 08:00 09/18/16 08:00 09/18/16 08:00 ICD10 Worksheet Patient Problems: Problems Problem Status Onset Arthrodesis status Acute Cervical radicular pain Acute Cervical spinal stenosis Acute Palpitations Acute Primary localized osteoarthritis of left hip Acute - ICD10 Problem Qualifiers (1) Cervical spinal stenosis (2) Cervical radicular pain (3) Arthrodesis status
[2016-09-18] MEDS ORDERED: PARoxetine CR 12.5 MG TAB PO SCH (09:00)
[2016-09-18] MEDS ORDERED: CETIRIZINE 10 MG TAB PO SCH (09:00)
[2016-09-18] MEDS: FAMOTIDINE 20 MG TAB PO SCH (09:27)
[2016-09-18] MEDS: SENNOSIDES/DOCUSATE SODIUM TAB PO SCH (09:55)
[2016-09-20] MEDS ORDERED: ENOXAPARIN 40 MG/0.4 ML SYR SC SCH (09:00)
== END 2016-09-18 12:06 | disposition home or self-care (01) ==
LOC: INTOOBSV 05:56 → F3N 05:56
PROVIDERS: ADMIT Neurological Surgery; ATTEND Neurological Surgery
PROC: 0RG1070 Fusion of Cervical Vertebral Joint with Autologous Tissue Substitute, Anterior Approach, Anterior Column, Open Approach (ICD-10-PCS; principal; 2016-09-17 07:30)
PROC: 8E0WXBZ Computer Assisted Procedure of Trunk Region (ICD-10-PCS; principal; 2016-09-17 07:30)
DX: M47.12 Other spondylosis with myelopathy, cervical region (principal); M48.02 Spinal stenosis, cervical region; Z96.642 Presence of left artificial hip joint; Z86.73 Personal history of transient ischemic attack (TIA), and cerebral infarction without residual deficits
CPT/HCPCS: 22551; 76001; 92526; 92610; 97161; 97165; C1713; G8978; G8979; G8980; G8987; G8988; G8989; G8996; G8997; G8998; J0690; J1100; J2250; J2405; J2704; J3010

== ENCOUNTER → 2016-11-18 | Outpatient (CLI) | payer OTHER, MEDICARE | LOC: FLAB 13:46 | PROVIDERS: ATTEND Nurse Practitioner | DX: M50.321 Other cervical disc degeneration at C4-C5 level (principal); M50.322 Other cervical disc degeneration at C5-C6 level; M50.323 Other cervical disc degeneration at C6-C7 level; Z98.1 Arthrodesis status ==

== ENCOUNTER → 2017-01-23 | Outpatient (CLI) | payer OTHER, MEDICARE | LOC: FIMAGING 15:52 | PROVIDERS: ATTEND Nurse Practitioner | DX: M48.061 Spinal stenosis, lumbar region without neurogenic claudication (principal); M43.16 Spondylolisthesis, lumbar region; M46.96 Unspecified inflammatory spondylopathy, lumbar region; M51.37 Other intervertebral disc degeneration, lumbosacral region; M43.17 Spondylolisthesis, lumbosacral region; Z98.1 Arthrodesis status ==

== ENCOUNTER → 2017-02-11 | Outpatient (CLI) | payer OTHER, MEDICARE | LOC: FIMAGING 14:28 | PROVIDERS: ATTEND Neurological Surgery | DX: Z09 Encounter for follow-up examination after completed treatment for conditions other than malignant neoplasm (principal); M43.16 Spondylolisthesis, lumbar region; M51.36 Other intervertebral disc degeneration, lumbar region; M51.37 Other intervertebral disc degeneration, lumbosacral region; M51.34 Other intervertebral disc degeneration, thoracic region; M12.88 Other specific arthropathies, not elsewhere classified, other specified site; Z98.1 Arthrodesis status | CPT/HCPCS: 82607-90 ==

== ENCOUNTER → 2017-02-26 | Outpatient (CLI) | payer OTHER, MEDICARE ==
[~2017-02-26] MED LIST changes: -ASPIRIN 81 MG CHEWABLE TAB PO ONE; +GADOBUTROL 10 ML VIAL IVP ONE; -HYOSCYAMINE SULFATE 0.125 MG TAB PO ONE; -LIDOCAINE 2% VISCOUS 15 ML UDCUP PO ONE; -MAG HYDROX/AL HYDROX/SIMETH 30 ML UDCUP PO ONE
== END ==
LOC: FIMAGING 15:07
PROVIDERS: ATTEND Psychiatry & Neurology Neurology
DX: R41.3 Other amnesia (principal); Z85.9 Personal history of malignant neoplasm, unspecified
CPT/HCPCS: 70553; A9585

== ENCOUNTER 2017-03-04 10:00 | Inpatient (IN) | payer OTHER, MEDICARE ==
[2017-03-25] MEDS ORDERED: ACETAMINOPHEN 500 MG TAB PO ONE (10:45)
[2017-03-25] MEDS ORDERED: GABAPENTIN 300 MG CAP PO ONE (10:45)
[2017-03-25] MEDS ORDERED: ceFAZolin 2 GM/SWFI 2 GM/20 ML SYR IVP ONE (10:45)
[2017-03-25] MEDS ORDERED: LR 1,000 ML IV ONE (10:46)
[2017-03-25] MEDS ORDERED: THROMBIN (BOVINE) 5,000 UNIT VIAL TP ONE (11:09)
[2017-03-25] MEDS ORDERED: BACITRACIN 50,000 UNITS/10 ML SYR IRR ONE (11:10)
[2017-03-25] MEDS ORDERED: LIDOCAINE 1% 2 ML INJ ID ONE (11:25)
[2017-03-25] MEDS ORDERED: LIDOCAINE 1% 2 ML INJ ONE (11:27)
--- NOTE | 2017-03-25 11:27 | PDANEPAE ---
ANE History of Present Illness s/p spondylolisthesis pt presents for L4-S1 TLIF ANE Past Medical History - Cardiovascular History Hx Hypertension: Yes Hx Arrhythmias: Yes Hx Chest Pain: No Hx Coronary Artery / Peripheral Vascular Disease: Yes Hx CHF / Valvular Disease: Yes Hx Palpitations: No Cardiovascular History Comment: AORTIC REGURG. MITRAL REGURG. HX OF SVT. LBBB. HTN. HYPERLIPIDEMIA - Pulmonary History Hx COPD: No Hx Asthma/Reactive Airway Disease: No Hx Recent Upper Respiratory Infection: No Hx Oxygen in Use at Home: No Hx Sleep Apnea: No Sleep Apnea Screening Result - Last Documented: Negative Pulmonary History Comment: CHILDHOOD ASTHMA. SEASONAL ALLERGIES - Neurologic History Hx Cerebrovascular Accident: Yes Hx Seizures: No Hx Dementia: No Neurologic History Comment: TIA 05/2014. SINUS HEADACHES - Endocrine History Hx Diabetes: No Endocrine History Comment: HYPOTHYROIDISM - Renal History Hx Renal Disorders: Yes Renal History Comment: PERIODIC URGENCY WITH AGE - Liver History Hx Hepatic Disorders: No - Neurological & Psychiatric Hx Hx Neurological and Psychiatric Disorders: Yes Neurological / Psychiatric History Comment: DEPRESSION - Cancer History Hx Cancer: Yes Cancer History Comment: BREAST CANCER- LUMPECTOMY AND RADIATION. ABNORMAL CERVICAL CELLS - Congenital Disorder History Hx Congenital Disorders: No - GI History Hx Gastrointestinal Disorders: Yes Gastrointestinal History Comment: HEARTBURN. HX OF EGD'S AND COLONOSCOPIES - Other Health History Other Health History: WEARS READING GLASSES - Chronic Pain History Chronic Pain: Yes (UPPER AND LOWER BACK) - Surgical History Prior Surgeries: LEFT KODI. ANGELA CATARACT. RT BREAST LUMPECTOMY 1994. EGD/ COLONOSCOPY. RT KNEE SCOPE. ANE Review of Systems Review of Systems: - Exercise capacity Exercise capacity: >=4 METS METS (RN): 4 METS - Systems Constitutional: Reports: no symptoms EENMT: Reports: no symptoms Cardiac: Reports: irregular heart rate Respiratory: Reports: no symptoms Gastrointestinal: Reports: no symptoms ANE Patient History - Allergies Allergies/Adverse Reactions: Penicillins Allergy (Unknown, Verified 09/08/16 14:36) Unknown Sulfa (Sulfonamide Antibiotics) Allergy (Unknown, Verified 09/08/16 14:36) Unknown - Home Medications Home medications: home medication list seen and reviewed Home Medications: PARoxetine HCL [Paxil Cr] 37.5 mg PO DAILY 06/06/14 [Last Taken 09/17/16 06:00] Pravastatin Sodium [Pravachol] 40 mg PO HS 06/06/14 [Last Taken 09/16/16 21:00] Pantoprazole Sodium [Protonix 40mg (*)] 40 mg PO BID PRN 12/18/14 [Last Taken 06:00] Verapamil ER [Calan SR/ER 240MG (*)] 240 mg PO DAILY@18 01/25/16 [Last Taken 19:00] Cholecalciferol Vit D3 [Vitamin D3 (*)] 2,000 units PO DAILY 02/16/17 [Last Taken Unknown] Levothyroxine [Synthroid 137 mcg (*)] 137 mcg PO DAILY06 02/16/17 [Last Taken Unknown] Multivitamins [Multivitamin (*)] 1 each PO DAILY 02/16/17 [Last Taken Unknown] SUMAtriptan [Imitrex 50 MG (*)] 25 - 50 mg PO DAILY PRN 02/16/17 [Last Taken Unknown] Aspirin [Aspirin 325 mg (*)] 325 mg PO DAILY 02/18/17 [Last Taken Unknown] Cetirizine [ZyrTEC 10 mg (*)] 10 mg PO DAILY 02/18/17 [Last Taken Unknown] Herbals/Supplements -Info Only 1 ea PO DAILY 02/18/17 [Last Taken Unknown] Ibuprofen [Motrin (*)] 200 mg PO DAILY PRN 02/18/17 [Last Taken Unknown] Mag/Aluminum/Sod Bicarb/Alginc [Gaviscon 80-14.2 mg Tab Chew] 1 each PO DAILY PRN 02/18/17 [Last Taken Unknown] Polyethylene Glycol 3350 [Miralax 17 gm (*)] 17 gm PO DAILY 02/18/17 [Last Taken Unknown] guaiFENesin [Mucinex 600 MG (*)] 600 mg PO BID PRN 02/18/17 [Last Taken Unknown] - NPO status NPO Since - Liquids (Date): 03/25/17 NPO Since - Liquids (Time): 00:00 NPO Since - Solids (Date): 03/24/17 NPO Since - Solids (Time): 18:00 - Anes Hx Anes Hx: no prior problems - Smoking Hx Smoking Status: Former smoker - Family Anes Hx Family Anes Hx: neg - N/A Family Hx Anesthesia Complications: NONE ANE Labs/Vital Signs - Vital Signs Height: 152.4 cm Weight: 55.792 kg ANE Physical Exam - Airway Neck exam: decreased ROM Mallampati Score: Class 2 Mouth exam: normal dental/mouth exam - Pulmonary Pulmonary: no respiratory distress - ASA Status ASA Status: III ANE Anesthesia Plan Anesthesia Plan: general endotracheal anesthesia Lines/Monitors: arterial line Specialized Airway: video laryngoscope (s/p acd planned glidescope) Total IV Anesthesia: No
[2017-03-25] MEDS ORDERED: CHLORHEXIDINE GLUC HIBICLENS 118 ML BTL TP ONE (12:17)
[2017-03-25] MEDS ORDERED: MIDAZOLAM 2 MG/2 ML VIAL IVP ONE (12:17)
[2017-03-25] MEDS ORDERED: MIDAZOLAM 2 MG/2 ML VIAL ONE (12:26)
[2017-03-25] MEDS ORDERED: fentaNYL 100 MCG/2 ML INJ ONE (12:29)
[2017-03-25] MEDS ORDERED: PROPOFOL 200 MG/20 ML VIAL ONE (12:30)
[2017-03-25] MEDS ORDERED: PROPOFOL/EMULSION 500 MG/50 ML BOTTLE IV ONE (12:30)
[2017-03-25] MEDS ORDERED: REMIFENTANIL HCL 1 MG VIAL ONE (12:30)
[2017-03-25] MEDS ORDERED: LIDOCAINE 2% 5 ML SDV ONE (12:31)
[2017-03-25] MEDS: BUPIVACAINE 0.25% 30 ML SDV ONE ×2 (12:37→13:40)
[2017-03-25] MEDS ORDERED: ROCURONIUM 50 MG/5 ML VIAL ONE (12:42)
[2017-03-25] MEDS ORDERED: PHENYLEPHRINE HCL 100 MCG/ML SYR ONE ×2 (12:43→14:11)
[2017-03-25] MEDS ORDERED: MAGNESIUM HYDROXIDE 30 ML UDCUP PO PRN (12:50)
[2017-03-25] MEDS ORDERED: ONDANSETRON DISINTEGRATING 4 MG TAB PO PRN (12:50)
[2017-03-25] MEDS ORDERED: BISACODYL 10 MG SUPP PR PRN (12:50)
[2017-03-25] MEDS ORDERED: ONDANSETRON 4 MG/2 ML VIAL IVP PRN ×3 (12:50→17:36)
[2017-03-25] MEDS ORDERED: POLYETHYLENE GLYCOL 3350 17 GM PKT PO PRN (12:50)
[2017-03-25] MEDS ORDERED: NALOXONE HCL 0.4 MG/ML INJ IVP PRN ×3 (12:50→17:36)
[2017-03-25] MEDS ORDERED: LACTULOSE 20 GM/30 ML UDCUP PO PRN (12:50)
[2017-03-25] MEDS ORDERED: diphenhydrAMINE 25 MG CAP PO PRN (12:50)
[2017-03-25] MEDS ORDERED: morphINE PCA 30 MG/30 ML PCA IV PRN (12:50)
[2017-03-25] MEDS ORDERED: PANTOPRAZOLE SODIUM 40 MG TAB PO PRN (12:59)
[2017-03-25] MEDS ORDERED: ceFAZolin 2 GM/DEXTROSE 100 ML IV SCH (14:00)
[2017-03-25] MEDS ORDERED: PROMETHAZINE HCL 25 MG/ML INJ IVP PRN ×2 (14:46→17:36)
[2017-03-25] MEDS ORDERED: HYDROmorphONE/DILAUDID 1 MG/ML INJ IVP PRN ×2 (14:46→17:36)
[2017-03-25] MEDS ORDERED: fentaNYL 100 MCG/2 ML INJ IVP PRN ×2 (14:46→17:36)
[2017-03-25] MEDS ORDERED: HYDROmorphONE/DILAUDID 2 MG/ML INJ ONE (14:51)
--- NOTE | 2017-03-25 18:26 | POSTOPPROG ---
Post Op Note Date of Operation: 03/25/17 Surgeon: Brandi Fagan Sales Correspondence Clerk: Lore Null NP Anesthesiologist: Gina Anesthesia: GET(General Endotracheal) Pre-op Diagnosis: Lumbar stenosis, spondy Procedure: L4-5, L5-S1 TLIF Inf/Abcess present in the surg proc area at time of surgery?: No Depth: Deep Incisional (Fascial) EBL: 100-500 Total fluids administered: see anesthesia Complications: none Drains: Crow Recinos Date of Surgery: 03/25/17 Post Op Day: 0 Assessment/Plan: 71 yr old s/p L4-5, L5-S1 TLIF for back pain and minimal leg pain right>left Plan: -Pain management, BRICK PICKER ordered if needed -PT/OT -Post op xrays in am -Wear brace when out of bed, patient already has brace Please call neurosurgery with any questions/concerns Subjective: Patient waking up in PACU Objective: Patient waking up in PACU PERRL Moving extremities x4 5/5 BUE, BLE Sensation intact to light touch BLE Dressing CDI DYLLAN patent Appropriate Neuro Check Frequency Ordered: Yes
--- NOTE | 2017-03-25 18:50 | POSTANESTH ---
Post Anesthetic Evaluation Cardiovascular Status: Similar to Pre-Op Cond, Tx Hyper/Hypo-tension Respiratory Status: Similar to Pre-op Cond. Level of Consciousness/Mental Status: Alert and Oriented (Moving all 4 ext) Pain Control: Adequate, Prn Tx Ordered Nausea/Vomiting Control: Adequate, Prn Tx Ordered Complications Possibly Related to Anesthesia: None Noted
[2017-03-25] MEDS ORDERED: ceFAZolin 2 GM/SWFI 2 GM/20 ML SYR IVP SCH (20:00)
[2017-03-25] MEDS: GABAPENTIN 300 MG CAP PO SCH (20:31)
[2017-03-25] MEDS: ACETAMINOPHEN 500 MG TAB PO SCH (20:32)
[2017-03-25] MEDS: ceFAZolin 2 GM/SWFI 2 GM/20 ML SYR IVP SCH (21:35)
[2017-03-25] MEDS: oxyCODONE IR 5 MG TAB PO PRN (21:42)
[2017-03-25] MEDS: FAMOTIDINE 20 MG TAB PO SCH (21:42)
[2017-03-25] MEDS: SENNOSIDES/DOCUSATE SODIUM TAB PO SCH (21:43)
[2017-03-25] MEDS: PRAVASTATIN SODIUM 40 MG TAB PO SCH (21:43)
[2017-03-25] MEDS: VERAPAMIL ER 240 MG TAB PO SCH (22:53)
--- NOTE | 2017-03-26 00:40 | GOP ---
[f rep st] OPERATIVE REPORT DATE OF OPERATION: 03/25/2017 SURGEON: Randal Fagan MD PAINTER MAINTENANCE: Lore Null, Nurse Practitioner. PREOPERATIVE DIAGNOSIS: Lumbar spondylolisthesis with severe stenosis L4-5, L5-S1. POSTOPERATIVE DIAGNOSIS: Lumbar spondylolisthesis with severe stenosis L4-5, L5-S1. PROCEDURE PERFORMED: 1. Posterolateral and intervertebral arthrodesis with bilateral decompressions, L4-5, L5-S1 (11788 a nd 16365). 2. Posterior segmental instrumentation across 2 interspaces (87496). 3. Spinal stereotactic. 4. Same incision bone graft harvest. 5. Placement of biomechanical intervertebral device, L4-5, L5-S1. 6. Microscope. FINDINGS: ESTIMATED BLOOD LOSS: 450 cc. INDICATIONS: The patient is a 71-year-old who has a long history of problems in her low back, and in fact, originally came to see me for problems in the low back and radiating discomfort in the legs, w hich she was found to be myelopathic on exam and underwent cervical decompressive surgery as a result of very severe cervical stenosis seen on her MRI. She did relatively well from this. For a while, she was able to put off surgery on her low back, which was her original problem, but the symptoms wer e relentless and continued to bother her. She desired to proceed with surgery. The risk of screw an d hardware malposition, malfunction, pseudoarthrosis, adjacent segment disease, future spine surgery, continued symptoms, including the possible failure to alleviate her presenting symptoms, were discus sed. She knew that she may continue to have symptoms despite surgery. She knew there was a risk of wound infection, and she wanted to proceed. DESCRIPTION OF PROCEDURE: Patient was taken to the operating room, placed in the supine position. G eneral anesthesia was begun. She was flipped prone onto the Crow table. Care was taken to pad al l points of contact. Her back was sterilely prepped and draped in usual fashion. A localizing x-ray was taken. A midline incision was made. We used a 6 cm incision above the L4-5 and L5-S1 interspac e. The subcutaneous tissue was dissected using Bovie cautery down to the fascia and a subperiosteal dissection was made down the L4-5 and 5-1 lamina. Self-retaining retractors placed. We drilled on t he bilateral hypertrophic facets at L4-5, L5-S1 and decorticated the transverse processes bilaterally at L4-5, L5-S1. We attached the Stealth reference frame to the L4 spinous process, performed an O-a rm spin, and using frameless Stealth stereotaxy, placed pedicle screws bilaterally at L4, L5, andS1. They all stimulated at acceptable levels. An O-arm spin was made, and all screws were in excellent position. We used 5.6 x 45 screws at L4, 6.5 x 40 on the left at 5, a 6.5 x 45 on the right at L5, a nd we actually used a 7.5 x 40 on the right at S1. The 6.5 x 40 was used on the left at S1. We plac ed 55 mm rods down over these screws and distracted significantly at L4 and L5 and got reduction of t he spondylolisthesis, at least a partial reduction of that. There was a little bit of motion at L5-S 1, but it was not nearly as mobile as what we saw at L4-5. We then removed all the soft tissue, the bone at L4, L5, and S1. Harvested the inferior L4 spinous process for autologous grafting purposes. Removed the entire L5 spinous process for autologous grafting purposes. Harvested the bilateral herman inas at L4, L5, S1 for autologous grafting purposes. Completely removed the left L4-5 and L5-S1 face t joints. We decompressed the thecal sac bilaterally at L4-5 and L5-S1. There was really severe lat eral recess and central spinal stenosis bilaterally at L4-5. We had a great decompression there, and there was an hourglass appearance of the dura due to the long-term chronic stenosis at that level. L5-S1 had encroachment of the IAP of L5 into the spinal canal in the lateral recess bilaterally, and we got the S1 nerve roots and the exiting L5 nerve root nicely decompressed. We swept the thecal sac medially at L5-S1 from the left side, removed the disk and the cartilaginous endplates. This disk w as very degenerative. There was no way to get an expandable cage into this, and we elected to go wit h a 7 x 25 mm Bryan cage. We went to L4-5 where we incised the L4-5 disk, removed the disk and th e cartilaginous endplates, roughened the subchondral bone, and here, we chose an expandable 7 x 23 mm device. We packed bone autograft BMP in both devices into the disk space. We used 2 mg of BMP in t he disk space. We used 2 mg of BMP posterolaterally. We also had a large amount of bone autograft l eft after packing the disk space in the intervertebral device, and we placed this posterolaterally bi laterally. We checked all of our hardware. It was all tightened according to company specification. We were happy with the final position of both of our intervertebral devices. We decorticated all t he remaining posterolateral bone bilaterally, placed the BMP in the bone autograft posterolaterally b ilaterally, followed by a subfascial drain. We then closed the incision in multiple layers using Keyon ryl sutures. Steri-Strips were applied to the skin. The patient was reversed from anesthesia, extub ated, and transferred to recovery room in stable condition. There were no complications. COMPLICATIONS: None. INSTRUMENTATION USED: [place] Solara 5.5 mm system. We used a 7 x 23 mm Elevate cage at L4-5 and a 7 x 25 mm Bryan cage at L5-S1. /[id number]/MODL
[2017-03-26] MEDS: GABAPENTIN 300 MG CAP PO SCH ×3 (05:10→21:51)
[2017-03-26] MEDS: ACETAMINOPHEN 500 MG TAB PO SCH ×3 (05:11→21:51)
[2017-03-26] MEDS: LEVOTHYROXINE 137 MCG TAB PO SCH (05:12)
[2017-03-26] MEDS: ceFAZolin 2 GM/SWFI 2 GM/20 ML SYR IVP SCH (05:14)
[2017-03-26] MEDS ORDERED: NS 500 ML IV ONE (05:30)
[2017-03-26] MEDS ORDERED: NS 1,000 ML IV SCH (05:30)
[2017-03-26 05:34] LABS: PLATELET COUNT 157 10^3/uL (150-400)
--- NOTE | 2017-03-26 08:05 | NEUSURGPN ---
Date of Surgery: 03/25/17 Post Op Day: 1 Assessment/Plan: 71 yr old s/p L4-5, L5-S1 TLIF for back pain and minimal leg pain right>left POD #1 Plan: -Pain management, has expeceted incisional pain which she feels is tolerable with ice and current pain regimen -PT/OT -Post op xrays pending, to be done today -DC DYLLAN this afternoon -Wear brace when out of bed, patient already has brace -Dr Fagan will be by to see patient as well Please call neurosurgery with any questions/concerns Subjective: Feeling better than expected Objective: AxO x3 5/5 BLE Sensation intact to light touch BLE Dressing CDI DYLLAN patent Neuro Check Frequency: per routine Urinary Catheter in Place: No - Physician Discussed Patient with DrMelvi: Rylan Patient Seen by : Rylna Neurosurgery Physical Exam - Vitals, I&O, Labs I and O 03/25/17 03/26/17 03/27/17 05:59 05:59 05:59 Intake Total 3150 Output Total 1140 100 Balance 2009 Weight 55.792 kg Intake: Oral (ml) 1050 IV Intake (ml) 2100 Output: Urine (ml) 400 100 Catheter 400 100 Estimated Blood Loss (ml) 450 DYLLAN Drain Output (ml) 290 #1 Posterior Back Crow 290 Recinos Other: Intake Quantity Yes Sufficient Vital Signs Temp Pulse Resp BP Pulse Ox 37.3 C 81 16 97/54 L 96 03/26/17 04:35 03/26/17 04:35 03/26/17 04:35 03/26/17 04:35 03/26/17 04:35 Laboratory Results 03/26/17 04:30 03/26/17 04:30 ICD10 Worksheet Patient Problems: Problems Problem Status Onset Arthrodesis status Acute Cervical radicular pain Acute Cervical spinal stenosis Acute Palpitations Acute Primary localized osteoarthritis of left hip Acute
[2017-03-26] MEDS: FAMOTIDINE 20 MG TAB PO SCH ×2 (10:34→20:11)
[2017-03-26] MEDS: PARoxetine CR 12.5 MG TAB PO SCH (10:34)
[2017-03-26] MEDS: SENNOSIDES/DOCUSATE SODIUM TAB PO SCH ×2 (10:34→20:12)
[2017-03-26] MEDS: oxyCODONE IR 5 MG TAB PO PRN ×2 (10:38→15:56)
--- NOTE | 2017-03-26 16:18 | ASMTCMCOM ---
CM Note CM Note Notes: Pt s/p L4-5, L5-S1 TLIF. Resides w husb. OT rec [facility], PT rec home w 24/hr supervision. CM to follow for d/c planning. Date Signed: 03/26/2017 04:18 PM Electronically Signed By:RO Atkinson
[2017-03-26] MEDS: VERAPAMIL ER 240 MG TAB PO SCH (17:36)
[2017-03-26] MEDS: PRAVASTATIN SODIUM 40 MG TAB PO SCH (20:12)
[2017-03-27] MEDS: LEVOTHYROXINE 137 MCG TAB PO SCH (06:27)
[2017-03-27] MEDS: GABAPENTIN 300 MG CAP PO SCH (06:28)
[2017-03-27] MEDS: ACETAMINOPHEN 500 MG TAB PO SCH ×3 (06:28→21:20)
[2017-03-27] MEDS: PARoxetine CR 12.5 MG TAB PO SCH (08:44)
[2017-03-27] MEDS: SENNOSIDES/DOCUSATE SODIUM TAB PO SCH ×2 (08:45→21:19)
[2017-03-27] MEDS: FAMOTIDINE 20 MG TAB PO SCH ×2 (08:45→21:19)
--- NOTE | 2017-03-27 11:22 | NEUSURGPN ---
Assessment/Plan: Assessment: 71 yr old s/p L4-5, L5-S1 TLIF for back pain and minimal leg pain right>left POD#2 Plan: -Pain management, has expected incisional pain which she feels is tolerable with ice and current pain regimen, encourage muscle relaxant use -PT/OT -Post op xrays show stable hardware -Wear brace when out of bed, patient already has brace -D/w Dr Fagan -Work towards DC once cleared by therapies and pain well managed Please call neurosurgery with any questions/concerns Subjective: Pt resting in bed, states she is feeling a little bit out of it. Pain is well managed, worse with movement. Objective: AAOx3 NAD VSS CN II-XII grossly intact Motor 5/5 BLE +LT Incision cdi steri strips in place Urinary Catheter in Place: No - Physician Discussed Patient with : Rylan Neurosurgery Physical Exam - Vitals, I&O, Labs I and O 03/26/17 03/27/17 03/28/17 05:59 05:59 05:59 Intake Total 3150 1300 500 Output Total 1140 3025 Balance 2009 -172 500 Weight 55.792 kg Intake: Oral (ml) 1050 900 500 IV Intake (ml) 2100 400 Output: Urine (ml) 400 2900 Catheter 400 1150 Toilet 1750 Estimated Blood Loss (ml) 450 DYLLAN Drain Output (ml) 290 125 #1 Posterior Back Crow 290 125 Recinos Other: Intake Quantity Yes Yes Yes Sufficient Number of Voids Catheter 1 Toilet 2 1 Vital Signs Temp Pulse Resp BP Pulse Ox 37.1 C 87 16 100/51 L 97 03/27/17 07:47 03/27/17 07:47 03/27/17 07:47 03/27/17 07:47 03/27/17 07:47 Laboratory Results 03/26/17 04:30 03/26/17 04:30 ICD10 Worksheet Patient Problems: Problems Problem Status Onset Arthrodesis status Acute Cervical radicular pain Acute Cervical spinal stenosis Acute Palpitations Acute Primary localized osteoarthritis of left hip Acute
[2017-03-27 16:33] VITALS: RESP 16
--- NOTE | 2017-03-27 16:56 | ASMTCMCOM ---
CM Note CM Note Notes: PT/OT rec HHC, pt agreeable. Address/phone verified. Referral sent to [facility] in [employer]. CM to follow. Date Signed: 03/27/2017 04:56 PM Electronically Signed By:RO Atkinson
[2017-03-27] MEDS: VERAPAMIL ER 240 MG TAB PO SCH (17:50)
[2017-03-27] MEDS: PRAVASTATIN SODIUM 40 MG TAB PO SCH (21:19)
[2017-03-27] MEDS: METHOCARBAMOL 750 MG TAB PO PRN (22:15)
[2017-03-28] MEDS: LEVOTHYROXINE 137 MCG TAB PO SCH (06:35)
[2017-03-28] MEDS: ACETAMINOPHEN 500 MG TAB PO SCH (06:35)
[2017-03-28 07:38] VITALS: BP 67/53; PULSE 84; TEMP 98.5; O2SAT 96
[2017-03-28] MEDS ORDERED: ENOXAPARIN 40 MG/0.4 ML SYR SC SCH (09:00)
[2017-03-28] MEDS: SENNOSIDES/DOCUSATE SODIUM TAB PO SCH (10:36)
[2017-03-28] MEDS: METHOCARBAMOL 750 MG TAB PO PRN (10:36)
[2017-03-28] MEDS: FAMOTIDINE 20 MG TAB PO SCH (10:36)
[2017-03-28] MEDS: PARoxetine CR 12.5 MG TAB PO SCH (10:36)
--- NOTE | 2017-03-28 11:11 | NEUSURGPN ---
Date of Surgery: 03/25/17 Post Op Day: 3 Assessment/Plan: Assessment: 71 yr old s/p L4-5, L5-S1 TLIF for back pain and minimal leg pain right>left POD#3 Plan: -Pain management, has expected incisional pain which she feels is tolerable with ice and current pain regimen, encourage muscle relaxant use -PT/OT -Post op xrays show stable hardware -Wear brace when out of bed, patient already has brace -Discussed patient with Dr Fagan -Patient will dc home today with home health/PT Subjective: expected incisional pain, overall doing well Objective: AxO x3 5/5 BLE Sensation intact to light touch BLE Incision CDI-steri strips in place Neuro Check Frequency: per routine Urinary Catheter in Place: No - Physician Discussed Patient with : Rylan Neurosurgery Physical Exam - Vitals, I&O, Labs I and O 03/27/17 03/28/17 03/29/17 05:59 05:59 05:59 Intake Total 1300 2550 Output Total 3025 4600 Balance -1724 -2049 Intake: Oral (ml) 900 2550 IV Intake (ml) 400 Output: Urine (ml) 2900 4600 Catheter 1150 Toilet 1750 4600 DYLLAN Drain Output (ml) 125 #1 Posterior Back Crow 125 Recinos Other: Intake Quantity Yes Yes Sufficient Number of Voids Catheter 1 Toilet 2 1 Vital Signs Temp Pulse Resp BP Pulse Ox 36.9 C 84 16 67/53 L 96 03/28/17 07:37 03/28/17 07:37 03/28/17 07:37 03/28/17 07:37 03/28/17 07:37 Laboratory Results 03/26/17 04:30 03/26/17 04:30 ICD10 Worksheet Patient Problems: Problems Problem Status Onset Arthrodesis status Acute Cervical radicular pain Acute Cervical spinal stenosis Acute Palpitations Acute Primary localized osteoarthritis of left hip Acute
--- NOTE | 2017-03-28 11:19 | PDIAF ---
- Diagnosis Diagnosis: S/p L4-5, L5-S1 TLIF Code Status: Full Code - Medication Management Discharge Medications: Medications to Continue on Transfer PARoxetine HCL [Paxil Cr] 37.5 mg PO DAILY 06/06/14 [Last Taken 09/17/16 06:00] Pravastatin Sodium [Pravachol] 40 mg PO HS 06/06/14 [Last Taken 09/16/16 21:00] Verapamil ER [[place] SR/ER 240MG (*)] 240 mg PO DAILY@18 01/25/16 [Last Taken 19:00] Cholecalciferol Vit D3 [Vitamin D3 (*)] 2,000 units PO DAILY 02/16/17 [Last Taken Unknown] Levothyroxine [Synthroid 137 mcg (*)] 137 mcg PO DAILY06 02/16/17 [Last Taken Unknown] Multivitamins [Multivitamin (*)] 1 each PO DAILY 02/16/17 [Last Taken Unknown] SUMAtriptan [Imitrex 50 MG (*)] 25 - 50 mg PO DAILY PRN 02/16/17 [Last Taken Unknown] Cetirizine [ZyrTEC 10 mg (*)] 10 mg PO DAILY 02/18/17 [Last Taken Unknown] Herbals/Supplements -Info Only 1 ea PO DAILY 02/18/17 [Last Taken Unknown] Mag/Aluminum/Sod Bicarb/Alginc [Gaviscon 80-14.2 mg Tab Chew] 1 each PO DAILY PRN 02/18/17 [Last Taken Unknown] Polyethylene Glycol 3350 [Miralax 17 gm (*)] 17 gm PO DAILY 02/18/17 [Last Taken Unknown] guaiFENesin [Mucinex 600 MG (*)] 600 mg PO BID PRN 02/18/17 [Last Taken Unknown] Acetaminophen [Tylenol ES 500 mg (*)] 1,000 mg PO Q8HRS tab 03/28/17 [Last Taken Unknown] Aspirin [Aspirin 325 mg (*)] 325 mg PO DAILY #30 03/28/17 [Last Taken Unknown] Methocarbamol [Robaxin 750 mg (*)] 750 mg PO QID PRN #60 tab 03/28/17 [Last Taken Unknown] Sennosides/Docusate Sodium [Senokot-S] 1 - 2 tab PO BID tab 03/28/17 [Last Taken Unknown] oxyCODONE IR [Oxycodone Ir (*)] 5 - 10 mg PO Q4HRS PRN #60 tab 03/28/17 [Last Taken Unknown] Discharge Medications: Refer to the Discharge Home Medication list for PRN reason. PICC Care - Routine: N/A - Orders Services needed: Home Care, Registered Nurse, Certified Elevated Work Platform Operator, Physical Therapy, Occupational Therapy Home Care Face to Face: I certify that this patient was under my care and that I had the required [id number] encounter meeting the encounter requirements on the discharge day. My findings support the fact that the patient is homebound as defined in Home Care Face to Face Continued: CMS Chapter 7 Medicare Benefits Manual 30.1.1 , The condition of the patient is such that there exists a normal inability to leave home and consequently, leaving home would require a considerable and taxing effort. Isolation Type: None Diet Recommendation: no restrictions on diet Diet Texture: Regular Texture Diet Schwartz: No Jesus Stockings Discontinue Date: may remove when ambulating 100 yards 2-3 times per day Wound Care Instructions: leave steri strips in place, ok to shower, do not submerge incision Activity/Weight Bearing Restrictions: no bending or twisting, do not lift greater than 10 pounds Equipment: wear brace when out of bed - Follow Up Care Current Providers and Referrals: MARYANNE ESTRADA [Primary Care Provider] - Brandi Fagan MD [Medical Doctor] - follow up in 2 weeks
--- NOTE | 2017-03-28 13:30 | ASMTCMCOM ---
CM Note CM Note Notes: Pt medically stable for d/c w [facility] RN/PT. Orders sent in [employer]. Date Signed: 03/28/2017 01:29 PM Electronically Signed By:RO Atkinson
--- NOTE | 2017-03-28 13:30 | ASDISCHSUM ---
Discharge Information Plan Status:Home with Home Health Medically Cleared to Leave: Discharge Date:03/28/2017 01:00 PM CM D/C Disposition:Home Health Service ADT D/C Disposition:HHSNOTBCH Projected Discharge Date:03/28/2017 11:00 AM Transportation at D/C: Discharge Delay Reason: Follow-Up Date:03/28/2017 11:00 AM Discharge Slot: Final Diagnosis: Placement Information Referral Type:*Home Health Care Services Referral ID:[id number] Provider Name:[facility] [place] Address 1:[address] [place] [address] Address 2: City:[place] Selection Factors: State:[place] Patient Contact Information Contact Name:GEM Relationship:Self Address:[address] City:[place] Alternate Phone: State/Zip Code:[place] [address] Email: Financial Information Financial Class: Primary Plan Desc:MEDICARE INPATIENT Primary Plan Number:[id number] Secondary Plan Desc:[employer]/MDR SUPPLEMENT Secondary Plan Number:[id number] Assessment Information [facility] CM Progress Note CM Note CM Note Notes: Pt s/p L4-5, L5-S1 TLIF[facility], PT rec home w 24/hr supervision. CM to follow for d/c planning. Date Signed: 03/26/2017 04:18 PM Electronically Signed By:RO Atkinson BC CM Progress Note CM Note CM Note Notes: PT/OT rec HHC, pt agreeable. Address/phone verified. Referral sent to [facility] in [employer]. CM to follow. Date Signed: 03/27/2017 04:56 PM Electronically Signed By:RO Atkinson [facility] CM Progress Note CM Note CM Note Notes: Pt medically stable for d/c w [facility] RN/PT. Orders sent in [employer]. Date Signed: 03/28/2017 01:29 PM Electronically Signed By:RO Atkinson Intervention Information
== END 2017-03-28 13:00 | disposition home health service (06) | DRG 455 ==
LOC: F3E 03-25 10:34 → F3N 03-25 19:54
PROVIDERS: ADMIT Neurological Surgery; ATTEND Neurological Surgery
PROC: 0SG0071 Fusion of Lumbar Vertebral Joint with Autologous Tissue Substitute, Posterior Approach, Posterior Column, Open Approach (ICD-10-PCS; principal; 2017-03-25 12:30)
PROC: 4A10X4G Monitoring of Central Nervous Electrical Activity, Intraoperative, External Approach (ICD-10-PCS; principal; 2017-03-25 12:30)
PROC: 0SG30AJ Fusion of Lumbosacral Joint with Interbody Fusion Device, Posterior Approach, Anterior Column, Open Approach (ICD-10-PCS; principal; 2017-03-25 12:30)
PROC: 01NB0ZZ Release Lumbar Nerve, Open Approach (ICD-10-PCS; principal; 2017-03-25 12:30)
PROC: 8E0WXBZ Computer Assisted Procedure of Trunk Region (ICD-10-PCS; principal; 2017-03-25 12:30)
PROC: 0ST20ZZ Resection of Lumbar Vertebral Disc, Open Approach (ICD-10-PCS; principal; 2017-03-25 12:30)
PROC: 3E0V0GB Introduction of Recombinant Bone Morphogenetic Protein into Bones, Open Approach (ICD-10-PCS; principal; 2017-03-25 12:30)
DX: M43.17 Spondylolisthesis, lumbosacral region (principal); Z98.1 Arthrodesis status; E03.9 Hypothyroidism, unspecified; I08.0 Rheumatic disorders of both mitral and aortic valves; E78.5 Hyperlipidemia, unspecified; I10 Essential (primary) hypertension; I44.60 Unspecified fascicular block; F32.9 Major depressive disorder, single episode, unspecified; Z96.642 Presence of left artificial hip joint; Z85.3 Personal history of malignant neoplasm of breast
CPT/HCPCS: 97110-GP; 97116-GP; 97161-GP; 97165-GO; 97530-GP; 97535-GO; C1713; G8978-GP-CI; G8978-GP-CJ; G8979-GP-CI; G8980-GP-CI; G8987-GO-CJ; G8988-GO-CI; J0171; J0690; J1170; J1650; J2250; J2370; J2704; J3010

== ENCOUNTER → 2017-03-04 | Outpatient (CLI) | payer OTHER, MEDICARE | LOC: BHFA 10:00 | PROVIDERS: ATTEND Internal Medicine Cardiovascular Disease | DX: I34.0 Nonrheumatic mitral (valve) insufficiency (principal) ==

== ENCOUNTER → 2017-05-06 | Outpatient (CLI) | payer OTHER, MEDICARE | LOC: FIMAGING 11:37 | PROVIDERS: ATTEND Nurse Practitioner | DX: Z98.1 Arthrodesis status (principal) ==

== ENCOUNTER → 2017-05-18 | Outpatient (CLI) | payer OTHER, MEDICARE | LOC: FIMAGING 13:04 | PROVIDERS: ATTEND Obstetrics & Gynecology | DX: Z12.31 Encounter for screening mammogram for malignant neoplasm of breast (principal); Z85.3 Personal history of malignant neoplasm of breast; Z80.3 Family history of malignant neoplasm of breast ==

== ENCOUNTER 2017-06-11 09:20 | Inpatient (IN) | payer OTHER, MEDICARE ==
[2017-06-11] MEDS ORDERED: FAMOTIDINE 20 MG TAB PO ONE (09:24)
[2017-06-11] MEDS ORDERED: ASPIRIN EC 325 MG TAB PO ONE (09:24)
[2017-06-11] MEDS ORDERED: NS 1,000 ML IV ONE (09:24)
[2017-06-11] MEDS ORDERED: diphenhydrAMINE 25 MG CAP PO ONE (09:24)
[2017-06-11] MEDS ORDERED: DIAZEPAM 5 MG TAB PO ONE (09:24)
--- NOTE | 2017-06-11 09:46 | CPEKG ---
Heart Rate: 80 RR Interval: 750 P-R Interval: 132 QRSD Interval: 120 QT Interval: 444 QTC Interval: 513 P [place]: 65 QRS [place]: 28 T Wave [place]: 77 EKG Severity - ABNORMAL ECG - EKG Impression: SINUS RHYTHM EKG Impression: INCOMPLETE LEFT BUNDLE BRANCH BLOCK EKG Impression: PROBABLE LVH WITH SECONDARY REPOL ABNRM Electronically Signed By: Brittni Alex 11-Jun-2017 11:20:17
[2017-06-11] MEDS ORDERED: MIDAZOLAM 2 MG/2 ML VIAL ONE (09:48)
[2017-06-11] MEDS ORDERED: LIDOCAINE 1% 300 MG/30 ML SDV ONE (09:48)
[2017-06-11] MEDS ORDERED: VERAPAMIL 5 MG/2 ML VIAL ONE (09:48)
[2017-06-11] MEDS ORDERED: fentaNYL 100 MCG/2 ML INJ ONE (09:48)
[2017-06-11] MEDS ORDERED: HEPARIN 10,000 UNIT/10 ML MDV (1,000 UNIT/ML) ONE (09:49)
[2017-06-11] MEDS ORDERED: IOPAMIDOL (ISOVUE-370) 150 ML BTL IV ONE (09:49)
[2017-06-11 09:58] LABS: PLATELET COUNT 214 10^3/uL (150-400)
--- NOTE | 2017-06-11 10:03 | PDPROPOC ---
Sedation Plan of Care Sedation Plan of Care: vital signs stable, mental status noted, patient educated of risks, benefits, alternatives, patient can tolerate sedation ASA Classification: ASA 2 Planned drugs: fentanyl, midazolam Mallampati Score: Class 1 Mallampati Reference Image: Patient passed 3-3-2 rule?: Yes
[2017-06-11 10:05] LABS: INR 0.95 (0.83-1.16); PROTIME(PATIENT) 12.9 SEC (12.0-15.0)
--- NOTE | 2017-06-11 10:32 | PDGENHP ---
History & Physical Chief Complaint: Shortness of breath fatigue History of Present Illness: 71-year-old female here for preoperative cardiac catheterization preparing for repair of the mitral valve, potential replacement of the aortic valve and potential myectomy in the setting of known valvular heart disease. Pertinent Past, Social, Family History: Severe mitral regurgitation, moderate aortic insufficiency, hypertrophic obstructive cardiomyopathy, anemia, left bundle branch block chronically, SVT history Relevant Physical Exam: Regular rate and rhythm with 3/6 systolic murmur. Lungs are clear to auscultation percussion. Neurologic examination normal gait : Face is symmetric. Radial artery pulses are +2 and equal with negative Drew 's test. Cardiorespiratory Assessment: 1. Severe mitral regurgitation, moderate aortic insufficiency preparing for open heart surgery. No contraindications to cardiac catheterization identified will proceed.
[2017-06-11] MEDS ORDERED: NITROGLYCERIN 1,500 MCG/15 ML VIAL MISC ONE (10:43)
[2017-06-11] MEDS ORDERED: NITROGLYCERIN 0.4 MG BTL SL ONE (10:51)
[2017-06-11] MEDS ORDERED: ATROPINE SULFATE 1 MG/10 ML SYR IVP PRN (11:17)
[2017-06-11] MEDS ORDERED: ONDANSETRON 4 MG/2 ML VIAL IVP PRN (11:17)
[2017-06-11] MEDS ORDERED: NITROGLYCERIN 0.4 MG BTL SL PRN (11:17)
--- NOTE | 2017-06-11 11:28 | PDDXCAT ---
Diagnostic Cath Note - . Date: 06/11/17 Receiving Tank Operator: Sam Indication: other (Preop assessment) - Procedure Access: left wrist Procedure: left heart catheterization, coronary angiography, left ventriculogram - Materials Left Heart Cath size: 4F Left Heart Cath materials: JL3.5, JR4.0, pigtail - Findings-Left Heart Catheterization LM: Unobstructed LAD: Mid 50% stenosis at bifurcation of 2nd diagonal LCX: Unobstructed RCA: 85% proximal stenosis unresponsive to nitroglycerin EDP: 18 mm of mercury LVEF: 65% with outflow tract gradient of 50 mm of mercury at rest Wall motion: Normal Complications: None Estimated blood loss: <50ml Closure method: TR Band Assessment: Severe mitral regurgitation with outflow tract gradient of 50 mm of mercury. Single-vessel coronary disease with critical proximal RCA stenosis. Preserved LV systolic function. Plan: Mitral valve repair with septal myectomy single-vessel bypass grafting. Patient Problems: Problems Problem Status Onset Palpitations Acute Primary localized osteoarthritis of left hip Acute Cervical spinal stenosis Acute Cervical radicular pain Acute Arthrodesis status Acute
--- NOTE | 2017-06-11 12:56 | ECHO ---
[email or web address] [address] [address] Main: [phone] Fax: Transthoracic Echocardiogram Name: RUBA VERMA MR#: [id number] Study Date: 06/11/2017 Study Time: 11:52 AM Date of : 1945 Age: 71 year(s) Height: 121.9 cm (48 in.) Weight: 54.89 kg (121 lb.) BSA: 1.28 m2 Gender: Female Examination: Echo Indication: Post Cath Image Quality: Contrast: Requested by: Rylan Vargas BP: 102 mmHg/52 mmHg Heart Rate: Rhythm: Indication: Post Cath Procedure Staff Senior Technical Support Engineer: Isaiah Pope RDCS Reading Physician: Rylan Vargas MD Requesting Provider: Conclusions: no pericardial effusion. Hypercontractile left ventricle with ejection fraction of 78%. LV OT obstruction with systolic anterior motion of the mitral valve. Peak gradient of 43 mm of mercury increasing to 56 with Valsalva. Moderate mitral regurgitation. Mild aortic regurgitation with left ventricular end-diastolic dimension of 5 cm. Measurements: Chambers Valvular Assessment AV/MV Valvular Assessment TV/PV Normal Normal Normal Name Value Range Name Value Range Name Value Range Ao Brii (MM): 2.4 cm (2.2 cm-3.7 AV Vmax: 2.66 m/s (1 m/s-1.7 TR Vmax: 3.47 mm/s ( - ) cm) m/s) TR PGmax: 48 mmHg ( - ) IVSd (2D): 0.9 cm (0.6 cm-1.1 AV maxP mmHg ( - ) syst. PAP: 53 mmHg ( - ) cm) AV meanP mmHg ( - ) PV Vmax: 1.25 m/s (0.6 m/s-0.9 LVDd (2D): 5.0 cm (3.9 cm-5.3 YAN (VTI): 2.2 cm ( - ) m/s) cm) AR (PHT): 539 ms ( - ) PV PGmax: 6 mmHg ( - ) LVDs (2D): 2.7 cm (2.1 cm-4 MV meanP mmHg ( - ) cm) MVA (Vmax): 4.2 m/s ( - ) LVPWd (2D): 0.9 cm ( - ) LVOTd 1.6 cm 1.6 cm mm LVEF (2D): 78 (>=54 %) Continued Measurements: Chambers Valvular Assessment AV/MV Valvular Assessment TV/PV Name Value Name Value Name Value LADs Lon.6 cm MV Annulus: 3.0 cm CVP (est.): 5 mmHg LA Area: 17.1 cm2 MV VTI: 34.90 cm MR Vena Contracta: 0.7 cm MR ERO: 0.230 cm2 MR PISA radius: 8 mm Patient: RUBA VERMA Study Date: 06/11/2017 Page 1 of 2 11:52 AM MR Reg. Volume: 35 ml MR Reg. Fraction: 14 % AR Vmax: 4.21 cm/s AR ERO: 0.170 cm2 AR PISA radius: 0.6 cm AR Reg. Volume: 38.0 ml AR Reg. Fraction: 26 % AR VTI: 221.0 cm Findings: Left Ventricle: Normal size left ventricle. Mild concentric LV hypertrophy. Global hypercontractility of the left ventricle. EF is 78 %. No regional wall motion abnormality. There is proximal septal thickening noted. There is a LVOT obstruction is most likely due to systolic anterior motion of the mitral valve. There is a peak gradient of 43 mmHg and increased to approximately 56 mmHg with a valsalva manuver. . Right Ventricle: Normal size right ventricle. Left Atrium: The left atrium is mildly dilated. Right Atrium: The right atrium is normal in size. Mitral Valve: The mitral valve leaflets appear to be thickend the posterior mitral valve is moderately calcified. There is moderate mitral regurgitation. The MR ERO is .21cm2 with a MR Volume of 32 ml.. Aortic Valve: The aortic valve is tri-leaflet. Mild aortic valve regurgitation is present. Tricuspid Valve: The tricuspid valve appears normal. Mild tricuspid regurgitation is present. The pulmonary artery pressure is mild to moderately increased. Pulmonic Valve: The pulmonic valve is normal in appearance and function. Aorta: The aorta is normal. Pericardium: No pericardial effusion. (No Signature Object) Patient: RUBA VERMA Study Date: 06/11/2017 Page 2 of 2 11:52 AM [id number]
--- NOTE | 2017-06-11 13:48 | PDHPUP ---
History & Physical Update H&P update statement: This history and physical update is based on an assessment of the patient which was completed after admission or registration (within 24 hours), but prior to the surgery/procedure. H&P update: H&P reviewed & patient examined, changes noted (Seen in the office : HOCM with LVOT gradient, CARTER, multivalve insufficiency, and class III dCHF. She cont to be able to perform ADLs at a modified pace, avoiding stairs or inclines. No CP, dizziness, orthopnea, edema, or palptiations. Admitted in advance of scheduled surgery to complete surgical risk stratification. 2V CAD identified as well as significant LVOT gradient. AI only mild. Plan add CABG and transaortic septal myectomy, possibly defer AVR. )
[2017-06-11] MEDS ORDERED: SUMAtriptan 50 MG TAB PO PRN (14:09)
[2017-06-11] MEDS: ACETAMINOPHEN 500 MG TAB PO PRN (16:06)
[2017-06-11] MEDS: VERAPAMIL 40 MG TAB PO SCH ×2 (16:07→20:36)
--- NOTE | 2017-06-11 16:38 | PDMN ---
Medical Necessity Medical necessity: [facility] IP only surgery; cpt 48864 CABG
[2017-06-11] MEDS ORDERED: guaiFENesin 600 MG TAB.ER PO PRN (18:00)
[2017-06-11] MEDS: PANTOPRAZOLE SODIUM 40 MG TAB PO SCH (18:30)
[2017-06-11] MEDS ORDERED: PRAVASTATIN SODIUM 40 MG PO SCH (18:30)
[2017-06-11] MEDS: PRAVASTATIN SODIUM 40 MG TAB PO SCH (18:30)
[2017-06-11] MEDS: POLYETHYLENE GLYCOL 3350 17 GM PKT PO SCH (18:34)
[2017-06-11] MEDS: MUPIROCIN 2% 22 GM OINT NS SCH (20:36)
[2017-06-11] MEDS: SENNOSIDES/DOCUSATE SODIUM TAB PO SCH (20:36)
[2017-06-11] MEDS ORDERED: CHLORHEXIDINE GLUC HIBICLENS 118 ML BTL TP SCH (21:00)
[2017-06-12] MEDS: VERAPAMIL 40 MG TAB PO SCH ×2 (08:53→19:55)
[2017-06-12] MEDS: PANTOPRAZOLE SODIUM 40 MG TAB PO SCH (08:53)
[2017-06-12] MEDS: SENNOSIDES/DOCUSATE SODIUM TAB PO SCH ×2 (08:54→21:50)
[2017-06-12] MEDS: POLYETHYLENE GLYCOL 3350 17 GM PKT PO SCH (08:55)
[2017-06-12] MEDS: MUPIROCIN 2% 22 GM OINT NS SCH ×2 (08:55→22:23)
[2017-06-12] MEDS ORDERED: AMINOCAPROIC ACID 5 GM/20 ML VIAL IV ONE (10:00)
[2017-06-12] MEDS ORDERED: niCARdipine/NACL 200 ML IV ONE (10:00)
[2017-06-12] MEDS ORDERED: SODIUM BICARBONATE 20 MEQ, LIDOCAINE 1% 10 ML in NORMOSOL-R 1,000 ML MISC ONE (10:00)
[2017-06-12] MEDS ORDERED: PHENYLEPHRINE HCL 50 MG in NS 250 ML IV ONE (10:00)
[2017-06-12] MEDS ORDERED: CITRATE DEXTROSE SOLN 500 ML BAG MISC ONE (10:00)
[2017-06-12] MEDS ORDERED: MANNITOL 25% 12.5 GM/50 ML VIAL IVP ONE (10:00)
[2017-06-12] MEDS ORDERED: VERAPAMIL 5 MG, NITROGLYCERIN 2.5 MG, HEPARIN 500 UNIT, SODIUM BICARBONATE 0.2 MEQ in L... MISC ONE (10:00)
[2017-06-12] MEDS ORDERED: INSULIN REGULAR HUMAN 100 UNIT in NS 100 ML IV ONE (10:00)
[2017-06-12] MEDS ORDERED: ceFAZolin 2 GM/SWFI 2 GM/20 ML SYR IVP ONE (10:00)
[2017-06-12] MEDS ORDERED: CALCIUM CHLORIDE 1 GM/10 ML INJ ONE ×2 (12:21→12:25)
[2017-06-12] MEDS ORDERED: PROTAMINE SULFATE 50 MG/5 ML VIAL IVP ONE (12:21)
[2017-06-12] MEDS ORDERED: MILRINONE/DEXTROSE/100 ML BAG IV ONE (12:21)
[2017-06-12] MEDS ORDERED: NA BICARBONATE 50 MEQ/50 ML VIAL ONE ×2 (12:21→18:05)
[2017-06-12] MEDS ORDERED: DOPamine/DEXTROSE/250 ML BAG IV ONE (12:22)
[2017-06-12] MEDS ORDERED: niCARdipine/NACL/200 ML BAG IV ONE (12:22)
[2017-06-12] MEDS ORDERED: AMIODARONE HCL 150 MG/3 ML VIAL ONE ×2 (12:22→12:26)
[2017-06-12] MEDS ORDERED: HEPARIN 10,000 UNIT/10 ML MDV (1,000 UNIT/ML) ONE ×2 (12:22→12:26)
[2017-06-12] MEDS ORDERED: ADENOSINE 6 MG/2 ML VIAL ONE (12:22)
[2017-06-12] MEDS ORDERED: ceFAZolin 1 GM VIAL ONE (12:23)
[2017-06-12] MEDS ORDERED: LIDOCAINE 2% 100 MG/5 ML SYR ONE (12:25)
[2017-06-12] MEDS ORDERED: ALBUMIN 5% 250 ML BOTTLE IV ONE (12:25)
[2017-06-12] MEDS ORDERED: CITRATE DEXTROSE SOLN 500 ML BAG ONE (12:26)
[2017-06-12] MEDS ORDERED: MAGNESIUM SULFATE 1 GM/2 ML VIAL ONE (12:26)
[2017-06-12] MEDS ORDERED: methylPREDNISolone SOD SUCC 1 GM/8 ML VIAL ONE (12:26)
--- NOTE | 2017-06-12 12:37 | PDANEPAE ---
ANE History of Present Illness here for MVR/CABG myomectomy ANE Past Medical History - Cardiovascular History Hx Hypertension: Yes Hx Arrhythmias: Yes Hx Chest Pain: No Hx Coronary Artery / Peripheral Vascular Disease: Yes Hx CHF / Valvular Disease: Yes Hx Palpitations: No Cardiovascular History Comment: AORTIC REGURG. MITRAL REGURG. HX OF SVT. LBBB. HTN. HYPERLIPIDEMIA - Pulmonary History Hx COPD: No Hx Asthma/Reactive Airway Disease: No Hx Recent Upper Respiratory Infection: No Hx Oxygen in Use at Home: No Hx Sleep Apnea: No Sleep Apnea Screening Result - Last Documented: Positive Pulmonary History Comment: CHILDHOOD ASTHMA. SEASONAL ALLERGIES - Neurologic History Hx Cerebrovascular Accident: Yes Hx Seizures: No Hx Dementia: No Neurologic History Comment: TIA 05/2014. SINUS HEADACHES. History of memory problems over the past year - Endocrine History Hx Diabetes: No Endocrine History Comment: HYPOTHYROIDISM - Renal History Hx Renal Disorders: Yes Renal History Comment: PERIODIC URGENCY WITH AGE - Liver History Hx Hepatic Disorders: No - Neurological & Psychiatric Hx Hx Neurological and Psychiatric Disorders: Yes Neurological / Psychiatric History Comment: DEPRESSION - Cancer History Hx Cancer: Yes Cancer History Comment: BREAST CANCER- LUMPECTOMY AND RADIATION. ABNORMAL CERVICAL CELLS - Congenital Disorder History Hx Congenital Disorders: No - GI History Hx Gastrointestinal Disorders: Yes Gastrointestinal History Comment: HEARTBURN. HX OF EGD'S AND COLONOSCOPIES - Other Health History Other Health History: WEARS READING GLASSES - Chronic Pain History Chronic Pain: Yes (UPPER AND LOWER BACK) - Surgical History Prior Surgeries: LEFT KODI. ANGELA CATARACT. RT BREAST LUMPECTOMY 1994. EGD/ COLONOSCOPY. RT KNEE SCOPE. ANE Review of Systems Review of systems is: negative Review of Systems: - Exercise capacity Exercise capacity: >=4 METS METS (RN): 4 METS ANE Patient History - Allergies Allergies/Adverse Reactions: Penicillins Allergy (Unknown, Verified 09/08/16 14:36) Unknown Sulfa (Sulfonamide Antibiotics) Allergy (Unknown, Verified 09/08/16 14:36) Unknown - Home Medications Home medications: home medication list seen and reviewed Home Medications: PARoxetine HCL [Paxil Cr] 37.5 mg PO DAILY 06/06/14 [Last Taken 09/17/16 06:00] Pravastatin Sodium [Pravachol] 40 mg PO DAILY@1830 06/06/14 [Last Taken 21:00] Verapamil ER [Calan SR/ER 240MG (*)] 240 mg PO DAILY18 01/25/16 [Last Taken 19:00] Cholecalciferol Vit D3 [Vitamin D3 (*)] 2,000 units PO DAILY 02/16/17 [Last Taken Unknown] Levothyroxine [Synthroid 137 mcg (*)] 137 mcg PO DAILY06 02/16/17 [Last Taken Unknown] Multivitamins [Multivitamin (*)] 1 each PO DAILY 02/16/17 [Last Taken Unknown] SUMAtriptan [Imitrex 50 MG (*)] 25 - 50 mg PO DAILY PRN 02/16/17 [Last Taken Unknown] Cetirizine [ZyrTEC 10 mg (*)] 10 mg PO DAILY 02/18/17 [Last Taken Unknown] Herbals/Supplements -Info Only 1 ea PO DAILY 02/18/17 [Last Taken Unknown] Mag/Aluminum/Sod Bicarb/Alginc [Gaviscon 80-14.2 mg Tab Chew] 1 each PO DAILY PRN 02/18/17 [Last Taken Unknown] Polyethylene Glycol 3350 [Miralax 17 gm (*)] 17 gm PO BIDMEAL 02/18/17 [Last Taken Unknown] guaiFENesin [Mucinex 600 MG (*)] 600 mg PO BID PRN 02/18/17 [Last Taken Unknown] Acetaminophen [Tylenol ES 500 mg (*)] 1,000 mg PO Q8HRS PRN 06/04/17 [Last Taken Unknown] Pantoprazole Sodium [Protonix 40mg (*)] 40 mg PO BIDMEAL 06/04/17 [Last Taken Unknown] Sodium Cl Nasal [[place] (*)] 1 spray [place] DAILY PRN 06/04/17 [Last Taken Unknown] - NPO status NPO Since - Liquids (Date): 06/12/17 NPO Since - Liquids (Time): 22:55 NPO Since - Solids (Date): 06/11/17 NPO Since - Solids (Time): 18:00 - Smoking Hx Smoking Status: Former smoker - Family Anes Hx Family Hx Anesthesia Complications: NONE ANE Labs/Vital Signs - Labs Result Diagrams: 06/11/17 09:50 06/12/17 04:14 - Vital Signs Vital Signs: reviewed preoperatively; see RN documention for details Blood Pressure: 101/49 Heart Rate: 74 Respiratory Rate: 18 O2 Sat (%): 94 Height: 122 cm Weight: 57.2 kg ANE Physical Exam - Airway Neck exam: FROM Mallampati Score: Class 1 - Pulmonary Pulmonary: no respiratory distress - Cardiovascular Cardiovascular: regular rate and rhythym - ASA Status ASA Status: III ANE Anesthesia Plan Anesthesia Plan: general endotracheal anesthesia
[2017-06-12] MEDS ORDERED: fentaNYL 250 MCG/5 ML INJ ONE ×2 (12:40→13:27)
[2017-06-12] MEDS ORDERED: PROPOFOL/EMULSION 500 MG/50 ML BOTTLE IV ONE (12:41)
[2017-06-12] MEDS ORDERED: VERAPAMIL 5 MG/2 ML VIAL ONE (12:45)
[2017-06-12] MEDS ORDERED: MINERAL OIL 10 ML VIAL ONE ×2 (12:45→16:39)
[2017-06-12] MEDS ORDERED: PAPAVERINE HCL 60 MG/2 ML SDV ONE (12:45)
[2017-06-12] MEDS ORDERED: DEXMEDETOMIDINE IN 0.9 % NACL 100 ML IV ONE (14:00)
[2017-06-12] MEDS ORDERED: SUGAMMADEX SODIUM 200 MG/2 ML VIAL IVP ONE (17:06)
[2017-06-12] MEDS ORDERED: MEPERIDINE 25 MG/ML SYR IVP PRN (17:18)
[2017-06-12] MEDS ORDERED: BISACODYL 10 MG SUPP PR PRN (17:18)
[2017-06-12] MEDS ORDERED: MAGNESIUM HYDROXIDE 30 ML UDCUP PO PRN (17:18)
[2017-06-12] MEDS ORDERED: D50W 25 GM/50 ML SYR IVP PRN (17:18)
[2017-06-12] MEDS ORDERED: CEPACOL LOZENGE PO PRN (17:18)
[2017-06-12] MEDS ORDERED: MAGNESIUM SULF 2 GM/WATER 50 ML IV ONE (17:18)
[2017-06-12] MEDS ORDERED: POTASSIUM Cl (KCl) 50 ML IV PRN (17:18)
[2017-06-12] MEDS ORDERED: fentaNYL 100 MCG/2 ML INJ IVP PRN (17:18)
[2017-06-12] MEDS ORDERED: ONDANSETRON DISINTEGRATING 4 MG TAB PO PRN (17:18)
[2017-06-12] MEDS ORDERED: PANTOPRAZOLE SODIUM 40 MG VIAL IVP ONE ×2 (17:18→20:00)
[2017-06-12] MEDS ORDERED: METOCLOPRAMIDE 10 MG/2 ML VIAL IVP PRN (17:18)
[2017-06-12] MEDS ORDERED: LACTULOSE 20 GM/30 ML UDCUP PO PRN (17:18)
[2017-06-12] MEDS ORDERED: ONDANSETRON 4 MG/2 ML VIAL IVP PRN (17:18)
[2017-06-12] MEDS ORDERED: INSULIN REGULAR HUMAN 100 UNIT in NS 100 ML IV SCH (17:30)
[2017-06-12] MEDS ORDERED: NS 1,000 ML IV SCH (17:30)
[2017-06-12] MEDS ORDERED: ALBUMIN 5% 500 ML BOTTLE IV ONE (17:38)
[2017-06-12] MEDS ORDERED: NOREPINEPHRINE BITARTRATE 16 MG in NS 250 ML IV PRN (17:50)
[2017-06-12] MEDS ORDERED: NA BICARBONATE 50 MEQ/50 ML VIAL IV ONE (18:15)
--- NOTE | 2017-06-12 18:28 | GOP ---
[f rep st] OPERATIVE REPORT DATE OF OPERATION: 06/12/2017 SURGEON: Dandy Rush DO CHECKOUT OPERATOR: KEIRY Savage ANESTHESIOLOGIST: Sanket Rader MD. PREOPERATIVE DIAGNOSIS: 1. Congestive heart failure and angina pectoris. 2. Arteriosclerotic heart disease. 3. Aortic insufficiency. 4. Mitral insufficiency. 5. Hypertrophic obstructive cardiomyopathy (HOCM) with outflow tract obstruction. POSTOPERATIVE DIAGNOSIS: 1. Congestive heart failure and angina pectoris. 2. Arteriosclerotic heart disease. 3. Aortic insufficiency. 4. Mitral insufficiency. 5. Hypertrophic obstructive cardiomyopathy (HOCM) with outflow tract obstruction. PROCEDURE PERFORMED: 1. Septal myectomy, extended. 2. Aortic valve replacement with a #19 Magna bioprosthesis. 3. Mitral valve replacement with a #25 Magna bioprosthesis. 4. Coronary artery bypass grafting x2 with left internal mammary artery to the left anterior descend ing artery and saphenous vein graft to the right coronary artery. 5. Ligation of left atrial appendage. FINDINGS: DESCRIPTION OF PROCEDURE: The patient was brought to the operating room, intubated, monitoring lines were placed. Transesophageal echo confirmed a moderate aortic insufficiency without stenosis and se jeanne mitral insufficiency with heavily calcified immobile posterior leaflet and a small anulus. Left internal mammary artery was harvested. She was heparinized, cannulated with bicaval cannulae in the ascending aorta. Cardiopulmonary bypass was begun. Cardioplegic arrest was obtained with antegrade cardioplegia, retrograde cardioplegia, topical hypothermia, and systemic cooling. Initially, the left atrial appendage was doubly ligated with 2-0 silk ties flush with the left atrium . We then proceeded with exposing the aortic valve. It was a trileaflet valve with thickened retrac rossy leaflets and significant central regurgitation. The small anulus was excised and she was sized f or a #19 Magna valve. We then identified the septal bulge from HOCM and beginning a centimeter below the anulus, did extensive dissection down toward the papillary muscle, radiating laterally from the midline on both sides and then connecting it with the dissection. A large section of the muscle was removed, particularly where there was a white area on the septum where there was coaptation from the leaflet. We then proceeded with exposing the mitral valve. We did additional dissection of the septum from at exposure as well, thinning the remaining septum to about a centimeter. I then proceeded with insp ecting the mitral valve. It appeared to be thickened and somewhat retracted as well as very fibrotic and rather immobile. I did not feel it was suitable for repair, particularly given the significant mitral annular calcification. We then removed the anterior leaflet and removed large portions of hyp ertrophied papillary muscles to help improve outflow tract. I left the posterior leaflet intact and placed a 25 Magna bioprosthetic valve with the pledgets on the ventricular side in order to reduce th e outflow tract obstruction potential of the struts of the leaflets. Left atrium was then closed in standard fashion. We then proceeded with placing the aortic valve with interrupted 2-0 Tycron pledgeted mattress suture s. It was seated without difficulty. Aortotomy was closed in a two-layer fashion. We then grafted the main right coronary artery which was a 3.5 mm vessel, brought off the ascending a gerri and the left internal mammary artery to the LAD. The cross-clamp was removed with suction on th e ascending aortic vent. Spontaneous cardiac activity was noted to resume. The patient was weaned f rom bypass. Heparin was reversed with protamine. Cannula was removed and oversewn. 2 ventricular p acing wires, 2 pleural and 1 mediastinal drain were placed. The thymic fat and pericardium were clos ed. Chest was closed in standard fashion. Patient was returned to ICU in stable condition. /[id number]/MODL
[2017-06-12] MEDS ORDERED: ALBUMIN 5% 500 ML IV ONE (19:30)
[2017-06-12] MEDS ORDERED: ceFAZolin 2 GM/DEXTROSE 100 ML IV SCH (22:00)
[2017-06-12] MEDS: ceFAZolin 2 GM/SWFI 2 GM/20 ML SYR IVP SCH (22:25)
[2017-06-13] MEDS: ALBUMIN 5% 250 ML IV PRN ×2 (03:16→05:15)
[2017-06-13 04:29] LABS: PLATELET COUNT 78 10^3/uL (150-400)
[2017-06-13 04:38] LABS: INR 1.4 (0.83-1.16); PROTIME(PATIENT) 17.3 SEC (12.0-15.0)
[2017-06-13] MEDS: LEVOTHYROXINE 137 MCG TAB PO SCH (06:48)
[2017-06-13] MEDS: HEPARIN 5,000 UNIT/0.5 ML SYR SC SCH ×3 (06:48→22:33)
[2017-06-13] MEDS: ceFAZolin 2 GM/SWFI 2 GM/20 ML SYR IVP SCH ×3 (06:50→22:33)
--- NOTE | 2017-06-13 07:14 | SOAPPROG ---
SOAP Progress Note Assessment/Plan: POD #1: CABGx2 (ANDERS-LAD, SVG-RCA), AVR #19 Magna bioprosthesis, MVR #25 Magna bioprosthesis, extended septal myectomy, ligation CINDA CAD s/p CABG x2 - Levophed wean in progress for MAPs > 64 - BB/ASA/statin when appropriate - Chest tubes to bulb suction, AL out once BP stable, FC out - PT/OT Moderate AI s/p AVR with bioprosthesis - ASA alone for thromboprophylaxis Severe MR s/p MVR with bioprosthesis - Thromboprophylaxis with Coumadin, INR goal 2-3, for 3 months HOCM with LVOT/CARTER s/p extended septal myectomy - Beta-kailee when appropriate Acute blood loss anemia - Stable s/p 1U PRBc Post-op bradycardia - Continue v-pacing at 90 for optimized HD - Expect recovery of sinus node Thrombocytopenia - Secondary to CPB - Hold heparin SQ while platelets < 100 Dementia - Pt with pre-op memory issues and expect transient worsening post-op - Promote sleep hygiene, avoid narcotics DVT prophylaxis - SCDs/heparin SQ for INR < 1.8 Subjective: Denies pain/SOB. Would like to get out of bed. Aware of being in the hospital and having had heart surgery. Knows her memory is poor. Objective: Vital Signs Temp Pulse Resp BP Pulse Ox 37.9 C 98 15 115/71 97 06/13/17 06:00 06/13/17 06:00 06/13/17 06:00 06/13/17 06:00 06/13/17 06:00 Laboratory Results 06/13/17 04:12 06/13/17 04:12 06/12/17 06/13/17 06/14/17 05:59 05:59 05:59 Intake Total 100 1989.0 Output Total 200 1635 Balance -100 354.0 PT 17.3 SEC (12.0-15.0) H 06/13/17 04:12 INR 1.40 (0.83-1.16) H 06/13/17 04:12 Physical Exam - Physical Exam General Appearance: WD/WN, alert, no apparent distress EENT: No scleral icterus (R), No scleral icterus (L) Neck: normal inspection Respiratory: No accessory muscle use Cardiac/Chest: bradycardia Abdomen: non-tender, soft, No distended Skin: normal color, warm/dry Extremities: No pedal edema Neuro/Psych: no motor/sensory deficits, alert, normal mood/affect, oriented x 3 , cognition abnormalities ICD10 Worksheet Patient Problems: Problems Problem Status Onset Acute blood loss anemia Acute CAD in [place] artery Acute S/P CABG x 2 Acute ~06/12/17 S/P aortic valve replacement with bioprosthetic valve Acute ~06/12/17 S/P mitral valve replacement with bioprosthetic valve Acute ~06/12/17 S/P ventricular septal myectomy Acute ~06/12/17 Asymmetric septal hypertrophy Chronic Hypertrophic obstructive cardiomyopathy (HOCM) Chronic Mitral and aortic insufficiency Chronic 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
[2017-06-13] MEDS: PARoxetine CR 12.5 MG TAB PO SCH (09:51)
[2017-06-13] MEDS: traMADol 50 MG TAB PO PRN ×3 (09:51→22:33)
[2017-06-13] MEDS: ASPIRIN 81 MG CHEWABLE TAB PO SCH (09:53)
[2017-06-13] MEDS: SENNOSIDES/DOCUSATE SODIUM TAB PO SCH ×2 (09:54→20:03)
--- NOTE | 2017-06-13 10:10 | GCON ---
[f rep st] CONSULTATION CORE MOUNTER CONSULTATION HISTORY OF PRESENT ILLNESS: Patient examined postoperatively after receiving septal myectomy, aortic valve replacement, mitral valve replacement, coronary bypass graft, and ligation of left atrial appe ndage. The patient is a very pleasant 71-year-old white female with extensive past medical history i ncluding breast cancer, iron deficiency anemia, hypothyroidism, depression, migraines, hypertension, hyperlipidemia, chronic pain, and left ventricular outflow obstruction. Again, she is examined posto peratively. In discussion today, with the exception of some pain, she is doing quite well. She denies any shortn ess of breath currently. No fever or night sweats. She denies any cough or production of sputum. O verall, she feels reasonably well. REVIEW OF SYSTEMS: A 10-point review of system was performed and is negative except for what was lis rossy in the HPI. PAST MEDICAL HISTORY: Significant for breast cancer, hypothyroidism, migraine, hypertension, hyperli pidemia, chronic back pain, left ventricular outflow obstruction, anemia, and hypertension. PAST SURGICAL HISTORY: She has had a , lumpectomy, and EGD. SOCIAL HISTORY: Distant history of tobacco use; none currently. No significant alcohol use. FAMILY HISTORY: Noncontributory. ALLERGIES: Penicillin and sulfa. PHYSICAL EXAMINATION: VITAL SIGNS: Blood pressure 115/71, pulse 98, respirations 15, temperature 37 .9, oxygen saturation 97% on 2 L. GENERAL: Well-developed, well-nourished, elderly white female who is resting comfortably in no acute distress. HEENT: Eyes are PERRL, EOMI. Throat shows no erythem a or tonsillar hypertrophy. NECK: Supple. No cervical adenopathy. HEART: Regular rate and rhythm with a 2/6 systolic murmur at left sternal border without radiation. LUNGS: Diminished breath soun ds but no wheeze. ABDOMEN: Soft, nontender. Bowel sounds are present in all 4 quadrants. EXTREMIT IES: No clubbing, cyanosis, or edema. LABORATORIES: White count 17.3, hemoglobin 10, hematocrit 31, platelet count is 78. INR is 1.4. So dium 148, potassium 4.9, chloride 115, CO2 26, BUN 16, creatinine 0.7, glucose 111. IMPRESSION: 1. Coronary artery disease. 2. Status post coronary bypass graft. 3. Status post aortic valve replacement. 4. Status post mitral valve replacement. 5. Septal myectomy. 6. Congestive heart failure. 7. Hypertrophic cardiomyopathy. 8. Hypothyroidism. 9. Acute respiratory failure; stable off mechanical ventilation. 10. Hypertension. 11. Hyperlipidemia. 12. History of breast cancer. RECOMMENDATIONS: 1. Adequate pain control. 2. DVT and PE prophylaxis, holding anticoagulation for now. 3. Stress ulcer prophylaxis. 4. Aggressive blood sugar control. 5. PT and OT. 6. Speech. 7. Early ambulation. /[id number]/MODL
--- NOTE | 2017-06-13 10:39 | ASMTCMCOM ---
CM Note CM Note Notes: Patient is POD #1 MVR, AVR, CABGx2. She is extubated and stable in the ICU, although she's been mildly agitated. Per RN and MD history, patient has short term memory/attention span issues. Patient herself endorses this; says they began after she had back surgery in March. Her has not been in yet to corroborate this history. PT/OT have been ordered and will evaluate today. Discharge needs TBD, Case Management will follow. Date Signed: 06/13/2017 10:38 AM Electronically Signed By:Abi Welch RN
--- NOTE | 2017-06-13 13:43 | POSTANESTH ---
Post Anesthetic Evaluation Cardiovascular Status: Normal, Stable Respiratory Status: Normal, Stable Level of Consciousness/Mental Status: Can Participate in Eval Pain Control: Adequate, Prn Tx Ordered Nausea/Vomiting Control: Adequate, Prn Tx Ordered Complications Possibly Related to Anesthesia: None Noted
[2017-06-13] MEDS: MUPIROCIN 2% 22 GM OINT NS SCH ×2 (14:09→20:03)
[2017-06-13] MEDS ORDERED: POLYETHYLENE GLYCOL 3350 17 GM PKT ONE (17:46)
[2017-06-13] MEDS: PANTOPRAZOLE SODIUM 40 MG TAB PO SCH (17:49)
[2017-06-13] MEDS: POLYETHYLENE GLYCOL 3350 17 GM PKT PO SCH (20:02)
[2017-06-13] MEDS: ACETAMINOPHEN 500 MG TAB PO PRN (20:03)
[2017-06-14 04:48] LABS: INR 1.77 (0.83-1.16); PROTIME(PATIENT) 20.7 SEC (12.0-15.0)
[2017-06-14] MEDS: HEPARIN 5,000 UNIT/0.5 ML SYR SC SCH (06:37)
[2017-06-14] MEDS: LEVOTHYROXINE 137 MCG TAB PO SCH (06:37)
[2017-06-14] MEDS: ceFAZolin 2 GM/SWFI 2 GM/20 ML SYR IVP SCH (06:37)
--- NOTE | 2017-06-14 07:21 | SOAPPROG ---
<Carlo Rice - Last Filed: 06/14/17 08:41> SOAP Progress Note Assessment/Plan: POD #2: CABGx2 (ANDERS-LAD, SVG-RCA), AVR #19 Magna bioprosthesis, MVR #25 Magna bioprosthesis, extended septal myectomy, ligation CINDA CAD s/p CABG x2 - BB avoided d/t low bradycardia, continue ASA, statin when appropriate - Chest tubes to bulb suction for an additional day - PT/OT Moderate AI s/p AVR with bioprosthesis - ASA alone for thromboprophylaxis Severe MR s/p MVR with bioprosthesis - Thromboprophylaxis with Coumadin, INR goal 2-3, for 3 months HOCM with LVOT/CARTER s/p extended septal myectomy - Beta-kailee avoided d/t bradycardia Acute blood loss anemia with coagulopathy - s/p 1U PRBC with stable HCT - Auto-anticoagulated with rising INR - expect hepatic congestion - will obtain LFTs Post-op junctional rhythm - Expect recovery of sinus node as HR in 60s - Leave pacer to backup VVI Thrombocytopenia - Secondary to CPB - Hold heparin SQ while platelets < 100 - Precautionary HIT panel set as platelets lower today Dementia - Pt with pre-op memory issues and with worsening post-op - Promote sleep hygiene, avoid narcotics DVT prophylaxis - SCDs/heparin SQ for INR < 1.8 when platelets > 100 Subjective: Feels shaky. Denies pain. Forgetful. Objective: Vital Signs Temp Pulse Resp BP Pulse Ox 36.5 C 74 18 147/74 H 98 06/14/17 04:00 06/14/17 06:00 06/14/17 06:00 06/14/17 06:00 06/14/17 06:00 Laboratory Results 06/14/17 04:17 06/14/17 04:17 06/13/17 06/14/17 06/15/17 05:59 05:59 05:59 Intake Total 1989.0 1845 Output Total 1635 990 Balance 354.0 855 PT 20.7 SEC (12.0-15.0) H 06/14/17 04:17 INR 1.77 (0.83-1.16) H 06/14/17 04:17 Physical Exam - Physical Exam General Appearance: WD/WN, alert, no apparent distress EENT: No scleral icterus (R), No scleral icterus (L) Neck: normal inspection Respiratory: No respiratory distress Cardiac/Chest: bradycardia Abdomen: non-tender, soft, No distended Skin: normal color, warm/dry Extremities: No pedal edema Neuro/Psych: no motor/sensory deficits, alert, normal mood/affect, cognition abnormalities ICD10 Worksheet Patient Problems: Problems Problem Status Onset Acute blood loss anemia Acute CAD in [place] artery Acute S/P CABG x 2 Acute ~06/12/17 S/P aortic valve replacement with bioprosthetic valve Acute ~06/12/17 S/P mitral valve replacement with bioprosthetic valve Acute ~06/12/17 S/P ventricular septal myectomy Acute ~06/12/17 Asymmetric septal hypertrophy Chronic Hypertrophic obstructive cardiomyopathy (HOCM) Chronic Mitral and aortic insufficiency Chronic 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 <Dandy Rush - Last Filed: 06/15/17 11:12> SOAP Progress Note Assessment/Plan: Assessment: Plan: Subjective: Pt less responsive today after complete normal neuro exam for 2 days post opin face of shock liver with increasing LFTs represents metabolic enceph which will clear when liver recovers will keep NPO, protect airway and avoid any sedation/narcotics updated Objective: Vital Signs Temp Pulse Resp BP Pulse Ox 36.7 C 74 26 H 140/57 H 91 L 06/15/17 08:00 06/15/17 10:00 06/15/17 10:00 06/15/17 10:00 06/15/17 10:00 Laboratory Results 06/15/17 06:50 06/15/17 04:05 06/14/17 06/15/17 06/16/17 05:59 05:59 05:59 Intake Total 1845 1300 200 Output Total 990 1105 390 Balance 855 195 -190 PT 24.5 SEC (12.0-15.0) H 06/15/17 04:05 INR 2.20 (0.83-1.16) H 06/15/17 04:05
[2017-06-14] MEDS: PANTOPRAZOLE SODIUM 40 MG TAB PO SCH ×2 (08:07→18:41)
[2017-06-14] MEDS: POLYETHYLENE GLYCOL 3350 17 GM PKT PO SCH ×2 (08:07→18:45)
[2017-06-14] MEDS: ACETAMINOPHEN 500 MG TAB PO PRN (08:11)
[2017-06-14] MEDS: MUPIROCIN 2% 22 GM OINT NS SCH (08:15)
[2017-06-14] MEDS: ASPIRIN 81 MG CHEWABLE TAB PO SCH (09:04)
[2017-06-14] MEDS: SENNOSIDES/DOCUSATE SODIUM TAB PO SCH (09:04)
[2017-06-14] MEDS: PARoxetine CR 12.5 MG TAB PO SCH (09:05)
--- NOTE | 2017-06-14 09:13 | PDINTPN ---
Data Control Assistant Progress Note Assessment/Plan: Assessment/plan: * Coronary disease * Left ventricular outflow tract obstruction * Stay status post septal myectomy, aortic valve replacement, mitral valve replacement, coronary artery bypass graft. * Respiratory-stable on minimal supplemental oxygen * Hypothyroid * Pain-reasonably well tolerated * History of breast cancer * Badeakcj-ydtbl-scyu memory loss * Anemia * VTE prophylaxis * Stress ulcer prophylaxis * PT/OT * Begin ambulation Subjective: Sitting up in chair. Appears comfortable. Good appetite. Objective: Vital Signs Temp Pulse Resp BP Pulse Ox 36.5 C 65 22 H 118/58 L 93 06/14/17 08:00 06/14/17 08:00 06/14/17 08:00 06/14/17 08:00 06/14/17 08:00 Laboratory Results 06/14/17 04:17 06/14/17 04:17 06/13/17 06/14/17 06/15/17 05:59 05:59 05:59 Intake Total 1989.0 1845 Output Total 1635 990 80 Balance 354.0 855 -80 PT 20.7 SEC (12.0-15.0) H 06/14/17 04:17 INR 1.77 (0.83-1.16) H 06/14/17 04:17 - Time Spent With Patient Time Spent With Patient: 25 min of time spent with patient, over 1/2 involved with coordination of care or counseling. Case discussed with nursing and surgery. Physical Exam - Physical Exam General Appearance: alert, no apparent distress EENT: PERRL/EOMI Neck: non-tender, full range of motion, supple, normal inspection Respiratory: crackles (Few basilar), prolonged expiration, No wheezing Cardiac/Chest: normal peripheral pulses, regular rate, rhythm, systolic murmur Abdomen: normal bowel sounds, non-tender, soft Pelvic Exam: deferred Rectal: deferred Skin: normal color, warm/dry Extremities: normal range of motion, non-tender, normal inspection, normal capillary refill Neuro/Psych: alert ICD10 Worksheet Patient Problems: Problems Problem Status Onset Acute blood loss anemia Acute CAD in [place] artery Acute S/P CABG x 2 Acute ~06/12/17 S/P aortic valve replacement with bioprosthetic valve Acute ~06/12/17 S/P mitral valve replacement with bioprosthetic valve Acute ~06/12/17 S/P ventricular septal myectomy Acute ~06/12/17 Asymmetric septal hypertrophy Chronic Hypertrophic obstructive cardiomyopathy (HOCM) Chronic Mitral and aortic insufficiency Chronic 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
[2017-06-14] MEDS ORDERED: HYDROCODONE/APAP 5/325 TAB PO PRN (10:48)
[2017-06-14] MEDS: traMADol 50 MG TAB PO PRN ×2 (12:19→18:41)
[2017-06-15 04:39] LABS: INR 2.2 (0.83-1.16); PROTIME(PATIENT) 24.5 SEC (12.0-15.0)
[2017-06-15] MEDS: traMADol 50 MG TAB PO PRN (05:32)
[2017-06-15] MEDS: SENNOSIDES/DOCUSATE SODIUM TAB PO SCH ×3 (05:34→19:55)
[2017-06-15] MEDS: LEVOTHYROXINE 137 MCG TAB PO SCH (05:34)
[2017-06-15 07:25] LABS: PLATELET COUNT 46 10^3/uL (150-400)
--- NOTE | 2017-06-15 07:49 | SOAPPROG ---
SOAP Progress Note Assessment/Plan: POD #3: CABGx2 (ANDERS-LAD, SVG-RCA), AVR #19 Magna bioprosthesis, MVR #25 Magna bioprosthesis, extended septal myectomy, ligation CINDA CAD s/p CABG x2 - BB avoided d/t low bradycardia, continue ASA, statin when appropriate - Chest tubes still with significant output - leave for another day - PT/OT Moderate AI s/p AVR with bioprosthesis - ASA alone for thromboprophylaxis Severe MR s/p MVR with bioprosthesis - Thromboprophylaxis with Coumadin, INR goal 2-3, for 3 months HOCM with LVOT/CARTER s/p extended septal myectomy - Beta-kailee avoided d/t bradycardia Acute blood loss anemia with coagulopathy - s/p 1U PRBC with stable HCT - Auto-anticoagulated with rising INR secondary to liver failure Post-op junctional rhythm - Rate now in the 70s with adequate BP - unlikely a need for PPM - OK to cap and wires Thrombocytopenia - Secondary to CPB - Hold heparin SQ while platelets < 100 - Precautionary HIT panel sent Dementia - Pt with pre-op memory issues and with worsening post-op secondary to acute liver failure - Promote sleep hygiene, avoid narcotics Acute liver failure - AST/ALT/INR continue to rise with worsening encephalopathy - Meds with hepatic clearance stopped - NPO until better mental exam - Continue supportive care - GI consult pending DVT prophylaxis - SCDs/heparin SQ for INR < 1.8 when platelets > 100 06/15/17 15:36 Subjective: Not interacting. Comfortable. Objective: Vital Signs Temp Pulse Resp BP Pulse Ox 36.9 C 73 18 92/78 L 99 06/15/17 04:00 06/15/17 04:00 06/15/17 04:00 06/15/17 04:00 06/15/17 04:00 Laboratory Results 06/15/17 06:50 06/15/17 04:05 06/14/17 06/15/17 06/16/17 05:59 05:59 05:59 Intake Total 1845 1300 200 Output Total 990 1105 300 Balance 855 195 -100 PT 24.5 SEC (12.0-15.0) H 06/15/17 04:05 INR 2.20 (0.83-1.16) H 06/15/17 04:05 Physical Exam - Physical Exam General Appearance: mild distress, obtunded EENT: No scleral icterus (R), No scleral icterus (L) Neck: normal inspection Respiratory: No respiratory distress Cardiac/Chest: other (JR) Abdomen: non-tender, soft, distended Skin: normal color, warm/dry, No jaundice Extremities: No pedal edema Neuro/Psych: sensory deficit, cognition abnormalities, speech abnormalities, No motor weakness ICD10 Worksheet Patient Problems: Problems Problem Status Onset Acute blood loss anemia Acute CAD in [place] artery Acute S/P CABG x 2 Acute ~06/12/17 S/P aortic valve replacement with bioprosthetic valve Acute ~06/12/17 S/P mitral valve replacement with bioprosthetic valve Acute ~06/12/17 S/P ventricular septal myectomy Acute ~06/12/17 Asymmetric septal hypertrophy Chronic Hypertrophic obstructive cardiomyopathy (HOCM) Chronic Mitral and aortic insufficiency Chronic 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
[2017-06-15] MEDS ORDERED: D5W 1/4 NS 1,000 ML IV SCH (09:30)
[2017-06-15] MEDS ORDERED: D5W 1/2 NS 1,000 ML IV SCH (10:00)
[2017-06-15] MEDS: ASPIRIN 81 MG CHEWABLE TAB PO SCH (10:08)
[2017-06-15] MEDS: PANTOPRAZOLE SODIUM 40 MG TAB PO SCH (10:09)
[2017-06-15] MEDS: POLYETHYLENE GLYCOL 3350 17 GM PKT PO SCH ×2 (10:09→13:18)
--- NOTE | 2017-06-15 13:52 | ECHO ---
[email or web address] [address] Main: [phone] Fax: Transthoracic Echocardiogram Name: RUBA VERMA MR#: [id number] Study Date: 06/15/2017 Study Time: 10:43 AM Date of : 1945 Age: 71 year(s) Height: 121.9 cm (48 in.) Weight: 62.14 kg (137 lb.) BSA: 1.35 m2 Gender: Female Examination: Echo Indication: S/P AVR #19 Magna, MVR #25 Magna, Extended septal myectomy. Image Quality: Contrast: Requested by: Carlo Rice BP: 140 mmHg/57 mmHg Heart Rate: Rhythm: Pacemaker rhythm Indication: S/P AVR #19 Magna, MVR #25 Magna, Extended septal myectomy. Procedure Staff Osha Inspector: Isaiah Pope RDCS Reading Physician: Enrrique Arnold MD Requesting Provider: Conclusions: Normal size left ventricle. Global hypercontractility of the left ventricle. EF is 81 %. There is septal hypokinesis, post septal myectomy OHS. The max LVOT/Mid LVOT gradient is 6 mmHg., The previous exam of 06/11/17 the peak gradient in the LVOT/Mid LV was 43mmHg.. Normal size right ventricle. Normal RV function. The left atrium is normal in size. The right atrium is normal in size. No mitral stenosis is present. A bioprothetic mitral valve is in place. The MV mean PG is 4 mmHg. . The aortic valve is a bioprosthesis. Normal functioning aortic valve prosthesis. The Aortic Valve Mean PG is 15 mmHg. The AV Vmax is 2.7 m/s. Moderate tricuspid regurgitation is present. The pulmonary artery pressure is mildly increased. Pulmonic Valve: The aorta is normal. Measurements: Chambers Valvular Assessment AV/MV Valvular Assessment TV/PV Normal Normal Normal Name Value Range Name Value Range Name Value Range Ao Brii (MM): 1.9 cm (2.2 cm-3.7 AV Vmax: 3.03 m/s (1 m/s-1.7 TR Vmax: 2.70 mm/s ( - ) cm) m/s) TR PGmax: 29 mmHg ( - ) IVSd (2D): 0.9 cm (0.6 cm-1.1 AV maxP mmHg ( - ) syst. PAP: 34 mmHg ( - ) cm) AV meanP mmHg ( - ) PV Vmax: 1.14 m/s (0.6 m/s-0.9 YAN (VTI): 1.2 cm ( - ) m/s) Patient: RUBA VERMA Study Date: 06/15/2017 Page 1 of 2 10:43 AM LVDd (2D): 3.0 cm (3.9 cm-5.3 MV E Vmax: 1.56 m/s ( - ) PV PGmax: 5 mmHg ( - ) cm) MV meanP mmHg ( - ) LVDs (2D): 1.5 cm (2.1 cm-4 MVA (Vmax): 1.2 m/s ( - ) cm) LVPWd (2D): 0.9 cm ( - ) LVOTd 1.8 cm 1.8 cm mm LVEF (2D): 81 (>=54 %) Continued Measurements: Chambers Valvular Assessment AV/MV Valvular Assessment TV/PV Name Value Name Value Name Value LADs Lon.5 cm MV VTI: 41.20 cm CVP (est.): 5 mmHg LA Area: 18.5 cm2 LA Volume: 58 ml LA Volume Index: 43.0 ml/m2 Findings: Left Ventricle: Normal size left ventricle. Global hypercontractility of the left ventricle. EF is 81 %. There is septal hypokinesis, post septal myectomy OHS. The max LVOT/Mid LVOT gradient is 6 mmHg., The previous exam of 06/11/17 the peak gradient in the LVOT/Mid LV was 43mmHg.. Right Ventricle: Normal size right ventricle. Normal RV function. Left Atrium: The left atrium is normal in size. Right Atrium: The right atrium is normal in size. Mitral Valve: No mitral stenosis is present. A bioprothetic mitral valve is in place. The MV mean PG is 4 mmHg. . Aortic Valve: The aortic valve is a bioprosthesis. Normal functioning aortic valve prosthesis. The Aortic Valve Mean PG is 15 mmHg. The AV Vmax is 2.7 m/s. Tricuspid Valve: The tricuspid valve appears normal. Moderate tricuspid regurgitation is present. The pulmonary artery pressure is mildly increased. Pulmonic Valve: The pulmonic valve is normal in appearance and function. Aorta: The aorta is normal. Pericardium: No pericardial effusion. (No Signature Object) Patient: RUBA VERMA Study Date: 06/15/2017 Page 2 of 2 10:43 AM [id number]
--- NOTE | 2017-06-15 14:25 | PDINTPN ---
Drilling Assistant Progress Note Assessment/Plan: Assessment/plan: 71 F with HOCM s/p septal myectomy AVR, MVR, CABG, CINDA ligation without reported intraoperative complications and extubated per protocol early on on with BP fluctuations requiring occasional albumin initially and known preop short term memory issues. Post op course with lethargy and elevation in LFTs. * S/P surgery as described above without substantial hemodynamic compromise and no BP support required. * Altered MS- likely post CPB and additional narcotics given last PM. Nonfocal exam- no indications of CVA. Watch for clearing and avoid narcotics * Transaminitis- Probably from hypoperfusion/BP at some point since her her LFTs were normal prior to surgery (at least in 01/2017). Statin not helping so held and GI consult pending. * Hypoxia- from atelectasis and now on RA * Hypothyroid- by history. Check TSH, free T4 Subjective: no complaints but lethargic and non-verbal Objective: Vital Signs Temp Pulse Resp BP Pulse Ox 37.8 C 82 27 H 131/59 H 92 06/15/17 12:00 06/15/17 12:00 06/15/17 12:00 06/15/17 12:00 06/15/17 12:00 Laboratory Results 06/15/17 06:50 06/15/17 04:05 06/14/17 06/15/17 06/16/17 05:59 05:59 05:59 Intake Total 1845 1300 200 Output Total 990 1105 688 Balance 855 195 -488 PT 24.5 SEC (12.0-15.0) H 06/15/17 04:05 INR 2.20 (0.83-1.16) H 06/15/17 04:05 Physical Exam - Physical Exam General Appearance: no apparent distress, other (lethargic, largely non-verbal) EENT: PERRL/EOMI Neck: supple Respiratory: lungs clear, normal breath sounds, No respiratory distress Cardiac/Chest: regular rate, rhythm, No edema Abdomen: non-tender, soft, No distended Skin: normal color, warm/dry, No cyanosis Lymphatic: no adenopathy Extremities: No pedal edema Neuro/Psych: cognition abnormalities ICD10 Worksheet Patient Problems: Problems Problem Status Onset Acute blood loss anemia Acute CAD in [place] artery Acute S/P CABG x 2 Acute ~06/12/17 S/P aortic valve replacement with bioprosthetic valve Acute ~06/12/17 S/P mitral valve replacement with bioprosthetic valve Acute ~06/12/17 S/P ventricular septal myectomy Acute ~06/12/17 Asymmetric septal hypertrophy Chronic Hypertrophic obstructive cardiomyopathy (HOCM) Chronic Mitral and aortic insufficiency Chronic 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
--- NOTE | 2017-06-15 15:33 | GCON ---
[f rep st] CONSULTATION DATE OF CONSULTATION: 06/15/2017 CHIEF COMPLAINT: Abnormal liver tests. HISTORY OF PRESENT ILLNESS: I am asked to see this patient in consultation by Dr. Rush for chief co mplaint of abnormal liver tests. The patient is a 71-year-old who underwent valve repair surgery on 06/12/2017, and yesterday was noted to have markedly elevated liver function tests. The patient's me ntal status is also found to be decreased, although her ammonia level is 9. I am unable to get signi ficant history from the patient. No family is present. History is obtained from the chart. There i s no known prior history of liver disease noted. The patient's liver tests were normal prior to hosp italization. No history of alcohol use. The patient will open her eyes briefly, but will otherwise not answer questions. Per her surgeon, there was no significant hypotension or ill effects during pagan rgery, and renal function has maintained well. ALLERGIES: Penicillin and sulfa. MEDICATIONS: On presentation, Zyrtec, aspirin, Tylenol, MiraLAX, multivitamins, Imitrex, Pravachol, Protonix, Paxil, verapamil, and Synthroid. PAST MEDICAL HISTORY: Notable for history of breast cancer, hypothyroidism, migraines, hypertension, hyperlipidemia, chronic low back pain, left ventricular outflow obstruction, valvar disease, anemia, hypertension, coronary artery disease. SOCIAL HISTORY: Per chart. No alcohol use. FAMILY HISTORY: Unable to obtain. REVIEW OF SYSTEMS: Unable to obtain. PHYSICAL EXAM: VITAL SIGNS: Temp 37.8, BP 131/59, pulse 76. CONSTITUTIONAL: Patient is drowsy, ar ousable to open her eyes but does not answer questions. HEENT: Eyes: No scleral icterus. No oral lesions. CARDIOVASCULAR: Regular rate and rhythm. CHEST: Clear to auscultation. ABDOMEN: Soft w ithout obvious hepatosplenomegaly. NEUROLOGIC: Unable to obtain. SKIN: No rashes. LABORATORY DATA: Prior to admission, last lab tests I see were from January, were normal. Today, h er AST is 1830, ALT is 1030, alkaline phosphatase normal at 123, bilirubin normal at 0.8. Ammonia is less than 0.9. Pro time is elevated at 24.5 and INR 2.2. Platelets are low at 46. White count is 19, H and H are 9.2 and 28. ASSESSMENT: The patient is postoperative from significant cardiac surgery receiving a septal myectom y, aortic valve and mitral valve replacement, coronary artery bypass and ligation of left arterial ap pendage, and today noted to have significant increase in liver function tests that were previously no rmal without known history of liver disease. In this setting, most likely represents some ischemic h epatopathy. Other differential would include viral, which I think less likely, or medication, potent ially from anesthesia or antibiotics if they were given are common causes. Of concern is the patient does have an elevated pro time, but otherwise her bilirubin is normal. She does have a decreased me ntal status; however, I doubt that this is hepatic encephalopathy because her ammonia is normal and i t is probably more related to over sedation. PLAN: Would recommend abdominal ultrasound with Doppler flow. We will check viral serologies and wi ll monitor her LFTs. If this is ischemic, generally they will decrease very quickly. We will also n eed to monitor her pro time. We will follow with you. Thanks for consult. /[id number]/MODL
[2017-06-15 18:52] LABS: HEPATITIS B SURFACE ANTIGEN NEGATIVE (NEGATIVE)
[2017-06-15 19:09] LABS: HEPATITIS A ANTIBODY TOTAL POSITIVE (NEGATIVE); HEPATITIS C ANTIBODY TOTAL NEGATIVE (NEGATIVE)
[2017-06-15 20:10] LABS: HEPATITIS A ANTIBODY IGM (BCH) NEGATIVE (NEGATIVE)
[2017-06-16 05:07] LABS: INR 2.82 (0.83-1.16); PLATELET COUNT 34 10^3/uL (150-400); PROTIME(PATIENT) 29.6 SEC (12.0-15.0)
[2017-06-16] MEDS: LEVOTHYROXINE 137 MCG TAB PO SCH (05:27)
--- NOTE | 2017-06-16 07:08 | SOAPPROG ---
SOAP Progress Note Assessment/Plan: Assessment: POD#4 CABGx2 (ANDERS-LAD, SVG-RCA), AVR#19 Magna bioprosthesis, MVR# 25 Magna bioprosthesis, extended transaortic septal myectomy, open vein harvest left thigh, suture ligation CINDA Severe MR s/p MVR with bioprosthesis - Thromboprophylaxis with Coumadin, INR goal 2-3, for 3 months - Administration of Coumadin delayed by coagulopathy/auto-anticoagulation Moderate AI s/p AVR with bioprosthesis - Thromboprophylaxis as per MVR HOCM with asymmetric septal hypertrophy/CARTER/LVOT gradient - Normalized gradients s/p extended septal myectomy - Beta-kailee avoided d/t early postop AJR/SB Incidental CAD s/p CABG x2 - Secondary prevention with baby ASA. BB on hold d/t rhythm. Statin on hold d/t hepatopathy. Acute blood loss anemia with thrombocytopenia and coagulopathy - Stable HCT s/p 1U PRBC. No evidence active bleeding. - Downward trending platelets. Precautionary HIT panel sent. - Auto-anticoagulated with rising INR, presumably secondary to liver failure. Post-op junctional rhythm - Resolved. - A & V wires wrapped and capped Acute liver failure - Worsening LFTs/INR with encephalopathy. Etiology unclear. No sig postop vasoactive support. Echo and abd US unremarkable. Hepatitis serologies neg. - Meds with hepatic clearance stopped - GI following Dementia - Hx TIA and pre-op memory issues - Postop exacerbation by hepatopathy - Promote sleep hygiene, avoid narcotics - NPO, on maintenance IVF until mentation clearer. Plan: Supportive care per multidisciplinary team. Consider removal mediastinal and left pleural tube later today. Clip TCPWs. Heme consult. Start Argatroban. 06/16/17 07:00 Subjective: Opens eyes and responds to name, but no words spoken. Generally agitated, restless limbs, trying to reposition. Objective: Vital Signs Temp Pulse Resp BP Pulse Ox 36.6 C 78 27 H 149/61 H 97 06/16/17 04:00 06/16/17 05:47 06/16/17 05:47 06/16/17 05:47 06/16/17 05:47 Laboratory Results 06/16/17 04:45 06/16/17 04:45 06/15/17 06/16/1718 05:59 05:59 05:59 Intake Total 1300 1748 Output Total 1105 1650 Balance 195 98 PT 29.6 SEC (12.0-15.0) H 06/16/17 04:45 INR 2.82 (0.83-1.16) H 06/16/17 04:45 Rhythm, BP, HCT and renal fx stable. Excellent sats on RA. Positive fluid balance. +6.6 kg overall. CTOP approaching removal criteria. Rising INR, transaminases, and now Tbili. Physical Exam - Physical Exam General Appearance: mild distress (intermittent) Respiratory: lungs clear (grossly), other (blakes x 3 to bulb suction, thin serosang drainage) Cardiac/Chest: regular rate, rhythm, other (Sternotomy and LLE venotomy CDI. TCPWs intact.) Peripheral Pulses: 2+: dorsalis-pedis (R), dorsalis-pedis (L) (dusky left toe tip/pad) Abdomen: soft Skin: warm/dry Extremities: swelling (trace dependent) ICD10 Worksheet Patient Problems: Problems Problem Status Onset Acute blood loss anemia Acute CAD in [place] artery Acute S/P CABG x 2 Acute ~06/12/17 S/P aortic valve replacement with bioprosthetic valve Acute ~06/12/17 S/P mitral valve replacement with bioprosthetic valve Acute ~06/12/17 S/P ventricular septal myectomy Acute ~06/12/17 Asymmetric septal hypertrophy Chronic Hypertrophic obstructive cardiomyopathy (HOCM) Chronic Mitral and aortic insufficiency Chronic 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
[2017-06-16] MEDS ORDERED: [UNRECOGNIZED DRUG - REMARK] MISC ONE (08:00)
[2017-06-16] MEDS ORDERED: FUROSEMIDE 20 MG/2 ML VIAL IVP ONE (08:08)
[2017-06-16 08:16] LABS: PLATELET COUNT 32 10^3/uL (150-400)
[2017-06-16] MEDS: ARGATROBAN 100 MG in NS 100 ML IV SCH (08:17)
[2017-06-16 08:20] LABS: INR 3.05 (0.83-1.16); PROTIME(PATIENT) 31.4 SEC (12.0-15.0)
[2017-06-16] MEDS: ASPIRIN 81 MG CHEWABLE TAB PO SCH (08:35)
[2017-06-16] MEDS: SENNOSIDES/DOCUSATE SODIUM TAB PO SCH ×2 (08:36→21:50)
[2017-06-16] MEDS: POLYETHYLENE GLYCOL 3350 17 GM PKT PO SCH ×2 (08:36→17:59)
[2017-06-16] MEDS ORDERED: OLANZapine DISINTEGR 5 MG TAB PO ONE ×2 (09:30→10:45)
[2017-06-16] MEDS: PANTOPRAZOLE SODIUM 40 MG TAB PO SCH (11:00)
--- NOTE | 2017-06-16 11:24 | SOAPPROG ---
SOAP Progress Note Assessment/Plan: Assessment: Elevated LFT no significant change except for slight elevation of bili. Cause unclear, U/S show e/o portal hypertension consider passive congestion from cardiac disease vs acute on chronic liver disease Liver appeared homogenous on U/S. INR increasing also with low PLT ? DIC . Change in MS suspect multifactorial ammonia was not elevated. Plan: Continue supportive care Will expand serology evaluation to r/o underlying liver disease Will discuss with technology coach 06/16/17 11:19 Subjective: CC elevated LFT Pt agitated more awake but does not answer questions Objective: Vital Signs Temp Pulse Resp BP Pulse Ox 36.7 C 82 28 H 157/72 H 94 06/16/17 08:00 06/16/17 10:00 06/16/17 10:00 06/16/17 10:00 06/16/17 10:00 Laboratory Results 06/16/17 07:45 06/16/17 04:45 06/15/17 06/16/17 06/17/17 05:59 05:59 05:59 Intake Total 1300 1748 Output Total 1105 1650 100 Balance 195 98 -100 PT 31.4 SEC (12.0-15.0) H 06/16/17 07:45 INR 3.05 (0.83-1.16) H 06/16/17 07:45 Physical Exam - Physical Exam Respiratory: lungs clear Cardiac/Chest: regular rate, rhythm Abdomen: non-tender, soft ICD10 Worksheet Patient Problems: Problems Problem Status Onset Acute blood loss anemia Acute CAD in [place] artery Acute S/P CABG x 2 Acute ~06/12/17 S/P aortic valve replacement with bioprosthetic valve Acute ~06/12/17 S/P mitral valve replacement with bioprosthetic valve Acute ~06/12/17 S/P ventricular septal myectomy Acute ~06/12/17 Asymmetric septal hypertrophy Chronic Hypertrophic obstructive cardiomyopathy (HOCM) Chronic Mitral and aortic insufficiency Chronic 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
--- NOTE | 2017-06-16 13:59 | ASMTCMCOM ---
CM Note CM Note Notes: POD#3 of a CABG x 3, AVR, MVR, more confused today. Questions answered by MD's in Rounds, not needing "Family Meeting" today. Date Signed: 06/16/2017 01:58 PM Electronically Signed By:Pao Luna LCSW
--- NOTE | 2017-06-16 15:00 | PDINTPN ---
Suspension Cord Tier Progress Note Assessment/Plan: Assessment/plan: 71 F with HOCM s/p septal myectomy AVR, MVR, CABG, CINDA ligation without reported intraoperative complications and extubated per protocol early on on with BP fluctuations requiring occasional albumin initially and known preop short term memory issues. Post op course with lethargy and elevation in LFTs. * S/P surgery as described above without substantial hemodynamic compromise and no BP support required outside of typical parameters * Altered MS- Nonfocal exam- no indications of CVA. Watch for clearing and avoid narcotics. Hepatic encephalopathy seems less likely but would consider lactulose regardless of NH3 * Transaminitis- Probably from hypoperfusion/BP at some point since her her LFTs were normal prior to surgery (at least in 01/2017). Statin not helping so held. GI consult noted. Hep serologies negative (Hep A vaccination). * Hypoxia- from atelectasis and now on RA * Hypothyroid- by history. Thyroid studies normal 06/16/17 14:57 Subjective: remains intermittently agitated/somnolent Objective: Vital Signs Temp Pulse Resp BP Pulse Ox 36.7 C 82 30 H 134/52 H 95 06/16/17 12:00 06/16/17 14:00 06/16/17 14:00 06/16/17 14:00 06/16/17 14:00 Laboratory Results 06/16/17 07:45 06/16/17 04:45 06/15/17 06/16/17 06/17/17 05:59 05:59 05:59 Intake Total 1300 1748 Output Total 1105 1650 330 Balance 195 98 -330 PT 31.4 SEC (12.0-15.0) H 06/16/17 07:45 INR 3.05 (0.83-1.16) H 06/16/17 07:45 Physical Exam - Physical Exam General Appearance: mild distress, obtunded EENT: PERRL/EOMI, No scleral icterus (R), No scleral icterus (L) Neck: supple Respiratory: lungs clear, normal breath sounds, decreased breath sounds, No respiratory distress, No accessory muscle use Cardiac/Chest: regular rate, rhythm, No edema Abdomen: non-tender, soft, No distended Skin: normal color, warm/dry, No cyanosis Lymphatic: no adenopathy Extremities: No pedal edema Neuro/Psych: cognition abnormalities ICD10 Worksheet Patient Problems: Problems Problem Status Onset Acute blood loss anemia Acute CAD in [place] artery Acute S/P CABG x 2 Acute ~06/12/17 S/P aortic valve replacement with bioprosthetic valve Acute ~06/12/17 S/P mitral valve replacement with bioprosthetic valve Acute ~06/12/17 S/P ventricular septal myectomy Acute ~06/12/17 Asymmetric septal hypertrophy Chronic Hypertrophic obstructive cardiomyopathy (HOCM) Chronic Mitral and aortic insufficiency Chronic 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
--- NOTE | 2017-06-16 15:52 | GCON ---
[f rep st] CONSULTATION REFERRING PHYSICIAN: Dandy Rush DO REASON FOR CONSULTATION: Thrombocytopenia. HISTORY OF PRESENT ILLNESS: The patient is a 71-year-old woman recently admitted for an elective septal myomectomy, aortic valve replacement, and mitral valve replacement. She also had a coronary artery bypass grafting x2 with left internal mammary artery to left anterior descending artery and saphenous vein graft to the right coronary artery. This procedure was performed on 06/12/2017. The patient herself suffers from congestive heart failure and angina pectoralis, also has atherosclerotic heart disease and a diagnosis of aortic insufficiency and mitral insufficiency, as well as hypertrophic obstructive cardiomyopathy with outflow tract obstruction. Otherwise, she is a relatively healthy woman. Past medical history will be discussed below. Patient went on cardiopulmonary bypass on the requiring heparinization. Unfortunately, patient is confused and nonverbal today so unable to obtain extensive past medical history. I do not note any prior heparin exposure in the past. Per Dr. Rush, patient recovered very well, was extubated, and in relatively good condition about 24 hours after surgery. Her labs on admission show a CBC with a white blood cell count of 5.7, hemoglobin 13.1, hematocrit 40.9, platelet count of 214,000. Her coags were within normal limits and her CMP including LFTs were unremarkable. I will note that after cardiopulmonary bypass, patient did not receive any further heparin products, so essentially these were discontinued on the . Her platelet count on recheck on the had dropped to 78,000, and notably, the liver enzymes were not checked on that day. On the , the platelet count continued to drop to 69,000. Liver enzymes showed an AST of 1391, ALT of 800, and T-bilirubin was within normal limits. Since this time, platelet count has continued to drop, now 32,000. LFTs continue to increase with an AST of 1867, ALT 1496, alkaline phosphatase of 130, and her bilirubin is now 1.6, conjugated bilirubin 0.6, unconjugated 1.0. Due to the concern of HIT, she was started on argatroban today. She has no evidence of clot at this time. GI has been consulted and did recommend an abdominal ultrasound with venous Doppler showing no evidence of portal vein or hepatic vein thrombosis, some suggestion of mild portal hypertension, but was otherwise normal. Patient continues to be more confused and combative, continues to be nonverbal. She is moving all of her extremities and shows no other neurologic symptoms. PAST MEDICAL HISTORY: Significant for the above-mentioned cardiovascular issues. Also has a history of breast cancer, details of which are unknown. Hypothyroidism, migraine headaches, hypertension, hyperlipidemia, chronic low back pain, anemia, and coronary artery disease. MEDICATIONS: Have been reviewed in EMR. SOCIAL HISTORY: No alcohol use. FAMILY HISTORY: Unable to obtain. REVIEW OF SYSTEMS: Unable to obtain. PHYSICAL EXAM: VITAL SIGNS: Today shows blood pressure 134/52, her heart rate is 82, respiration rate is 30, saturating 95% on room air, temp 36.7. GENERAL: She looks a little older than her stated age. Her eyes are closed. She is nonverbal and very fidgety, moving all extremities, not following commands. HEENT: No significant scleral icterus. Oropharynx is clear. HEART: Regular rate and rhythm. ABDOMEN: She does have 3 DYLLAN drains in the mid abdomen draining serosanguineous fluid. Abdomen is soft. EXTREMITIES: Lower extremities show no significant edema. She has bruising noted from vein harvest. I will note that she has no significant bleeding or oozing from any drains or IV sites. LABORATORY: Labs today per HPI. Otherwise, coags do show an elevated PT, INR, and PTT. Fibrinogen is somewhat low at 214, and D-dimer is elevated at 17.8. On review of peripheral smear with pathologist, there is possibly 1+ schistocyte every 3rd high-power field. Patient's creatinine is essentially normal at 0.9 and is not changed. Her immunoassay for PF4 heparin antibody is currently pending. A functional assay has not yet been sent. ASSESSMENT AND PLAN: A 71-year-old woman with the above-mentioned past medical history, namely valvular surgery most recently on 06/12/2017, now with development of worsening liver function tests, altered mental status, and thrombocytopenia. 1. Thrombocytopenia. She had 1 day of heparin exposure. This was reviewed with the pharmacist today. No further heparin, but platelets continue to fall. I think this speaks somewhat against heparin-induced thrombocytopenia, although will wait for the immunoassay as in some cases, take platelets more than 5 days to recover. By the 4T criteria, she has an intermediate score for heparin-induced thrombocytopenia; if her immunoassay is in any way indeterminate , will send a functional assay, but overall I think this is less likely. Given the ischemic liver noted and rising liver function tests and bilirubin, certainly concerned that this is from disseminated intravascular coagulation from organ failure. Disseminated intravascular coagulation panel does show abnormal coags. Fibrinogen is somewhat low. Of course, with her confusion, this does raise my suspicion for thrombotic thrombocytopenic purpura, but she does not fit this exactly either, given the abnormal coags and the lack of a significant amount of schistocytes on peripheral smear. She does not have fever or renal insufficiency, but these criteria do not necessarily need to be met to have thrombotic thrombocytopenic purpura. For further workup, I have sent a direct Evan, LDH, haptoglobin, and [id number]. Of course, would have a low threshold for plasmapheresis if she continues to have more clear evidence of microangiopathic hemolytic anemia by the presence of increased schistocytes on peripheral smear. For now, would continue supportive care and I think argatroban is reasonable; she currently has no evidence of thrombosis. 2. Elevated liver function tests. Gastroenterology consulted. Agree that this appears to be ischemic liver, given the sudden rise and unclear if confusion is related. Ammonia is low. She has had abdominal ultrasound imaging showing no evidence of hepatic or portal vein thrombosis. Will continue to monitor. It looks like rheumatologic and serologic testing has been sent to rule out other etiologies of transaminitis. 3. Altered mental status. No focal deficits to imply that patient has had an embolic event. She seems more disoriented and encephalopathic. Unclear if this is related to liver or other. Will have to continue to follow along closely, and again, have a low threshold for something like plasmapheresis if we really feel like this is thrombotic thrombocytopenic purpura. Will look forward to the rest of the testing that was drawn today. 4. Cardiovascular. Valvular repair (AV and MV), as well as 2-vessel coronary artery bypass grafting, per Dr. Rush. No further heparin products at this time. Remains on argatroban About an hour was spent with patient. More than 75% in time reviewing chart and discussing with specialists. /[id number]/MODL MTDD
[2017-06-16] MEDS ORDERED: NS 1,000 ML IV SCH (17:30)
[2017-06-17 04:23] LABS: PLATELET COUNT 42 10^3/uL (150-400)
[2017-06-17 04:46] LABS: PROTIME(PATIENT) 54.4 SEC (12.0-15.0)
[2017-06-17 04:48] LABS: INR 6.27 (0.83-1.16)
[2017-06-17] MEDS: LEVOTHYROXINE 137 MCG TAB PO SCH (06:06)
--- NOTE | 2017-06-17 07:12 | SOAPPROG ---
SOAP Progress Note Assessment/Plan: Assessment: POD#5 CABGx2 (ANDERS-LAD, SVG-RCA), AVR#19 Magna bioprosthesis, MVR# 25 Magna bioprosthesis, extended transaortic septal myectomy, open vein harvest left thigh, suture ligation CINDA Severe MR s/p MVR with bioprosthesis - Thromboprophylaxis with Coumadin, INR goal 2-3, for 3 months - Administration of Coumadin delayed by coagulopathy/auto-anticoagulation Moderate AI s/p AVR with bioprosthesis - Thromboprophylaxis as per MVR HOCM with asymmetric septal hypertrophy/CARTER/LVOT gradient - Normalized gradients s/p extended septal myectomy - Beta-kailee as allowed by rhythm Incidental CAD s/p CABG x2 - Secondary prevention with baby ASA. BB on hold d/t rhythm. Statin on hold d/t hepatopathy. - Two of three chest tubes out Acute blood loss anemia with thrombocytopenia and coagulopathy - Stable HCT s/p 1U PRBC. No evidence active bleeding. - Downward trending platelets. Empirically started on Argatroban with good effect. - HIT neg. Addtl studies per hematology. Post-op junctional rhythm - Resolved. - TCPWs clipped. Acute liver failure - Worsening LFTs/INR with encephalopathy. Presumably ischemic hepatitis secondary to CPB and early postop hypotension req temporary pressor support. Echo and abd US unremarkable. Hepatitis serologies neg. - Meds with hepatic clearance stopped. - GI following. Dementia - Hx TIA and pre-op memory issues. - Postop exacerbation by hepatopathy. - Promote sleep hygiene, avoid narcotics. - NPO, on maintenance IVF until MANAGER LATIN eval. Plan: Supportive care per multidisciplinary team. Switch maintenance IVF from D5 1/2 NS to D5W. MANAGER LATIN clearance for orals. Consider start metoprolol 12.5 mg BID with conservative hold parameters. Resume low dose SSRI. Keep remaining pleural tube for one more day. Inc activity as tolerated. 06/17/17 07:11 Subjective: Awake, alert, conversant. Oriented to self, place and time. MAEE. Able to follow commands and answer simple questions appropriately. Objective: Vital Signs Temp Pulse Resp BP Pulse Ox 36.5 C 81 21 H 119/75 98 06/16/17 19:56 06/17/17 06:00 06/17/17 06:00 06/17/17 06:00 06/17/17 06:00 Laboratory Results 06/17/17 04:00 06/17/17 04:00 06/16/17 06/17/17 06/18/17 05:59 05:59 05:59 Intake Total 1748 2373.5 300 Output Total 1650 1205 Balance 98 1168.5 300 PT 54.4 SEC (12.0-15.0) H D 06/17/17 04:00 INR 6.27 (0.83-1.16) H* 06/17/17 04:00 HR and BP stable. One 4-5 beat SVT last noc. On and off suppl O2. Slightly positive fluid balance. Mild hypernatremia. Renal fx stable. Platelet plateau. Upward trending transaminases. Tbili and alk phos normalized. Elev INR likely argatroban effect. Haptoglobin pending. Physical Exam - Physical Exam General Appearance: alert, no apparent distress Respiratory: lungs clear (grossly), other (leatha to bulb suction, thin serosang drainage) Cardiac/Chest: regular rate, rhythm, other (Sternotomy and LLE venotomy CDI) Peripheral Pulses: 3+: dorsalis-pedis (R) (no mottling), dorsalis-pedis (L) (no mottling) Abdomen: normal bowel sounds, non-tender, soft Skin: warm/dry Extremities: other (no visible edema) ICD10 Worksheet Patient Problems: Problems Problem Status Onset Acute blood loss anemia Acute CAD in [place] artery Acute S/P CABG x 2 Acute ~06/12/17 S/P aortic valve replacement with bioprosthetic valve Acute ~06/12/17 S/P mitral valve replacement with bioprosthetic valve Acute ~06/12/17 S/P ventricular septal myectomy Acute ~06/12/17 Asymmetric septal hypertrophy Chronic Hypertrophic obstructive cardiomyopathy (HOCM) Chronic Mitral and aortic insufficiency Chronic 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
[2017-06-17] MEDS ORDERED: D5W 1,000 ML IV SCH (07:45)
[2017-06-17] MEDS ORDERED: PARoxetine HCL 10 MG TAB PO SCH (09:00)
[2017-06-17] MEDS: PANTOPRAZOLE SODIUM 40 MG TAB PO SCH (09:34)
[2017-06-17] MEDS: POLYETHYLENE GLYCOL 3350 17 GM PKT PO SCH ×2 (09:35→16:16)
[2017-06-17] MEDS: SENNOSIDES/DOCUSATE SODIUM TAB PO SCH ×2 (09:35→22:12)
[2017-06-17] MEDS: ASPIRIN 81 MG CHEWABLE TAB PO SCH (09:35)
--- NOTE | 2017-06-17 10:09 | SOAPPROG ---
SOAP Progress Note Assessment/Plan: Assessment/Plan: 71 yo woman w hx of CHF/HOCM s/p recent cardiopulmonary bypass for AVR/MVR/ myomectomy and 2vCABG 06/12/17 now w thrombocytopenia, transaminitis, and resolved AMS 1. Thrombocytopenia - HIT ab negative and very low w intermediate 4T score. Unlikely HIT but will go ahead and send functional assay (DAWN) as pt seemlingly has improved w argatroban Platelets stable to improved today No e/o microangiopathic hemolytic anemia thus far with clearing of AMS and normal bili today, TTP unlikely (no sig schistocytes) At this point, I do favor DIC as cause of thrombocytopenia and hopefully, as LFTs improve, so will platelets Considered HLH, but no splenomegaly or fever as really does not appear sick enough to have HLH ferritin and LDH will be high with liver dysfunction 2. Transaminitis - unclear etiology presumably ischemia but no real documentation of hypoperfusion, etc GI following Hopefully LFTs peaking and will start to improve No hepatomegaly consider switching back to heparin w low clinical suspicion of HIT 3. AMS - encephalopathy ?narcotic induced much improvement today 4. Pt mentions hx of HSP (IgA vasculitis) don't think related to above but worth mentioning 06/17/17 10:09 Subjective: Mental status has cleared doing great LFTs worse but bili improved no bleeding Objective: Vital Signs Temp Pulse Resp BP Pulse Ox 37.1 C 77 18 120/53 L 91 L 06/17/17 07:49 06/17/17 07:49 06/17/17 07:49 06/17/17 07:49 06/17/17 07:49 Laboratory Results 06/17/17 04:00 06/17/17 04:00 06/16/17 06/17/17 06/18/17 05:59 05:59 05:59 Intake Total 1748 2373.5 300 Output Total 1650 1205 125 Balance 98 1168.5 175 PT 54.4 SEC (12.0-15.0) H D 06/17/17 04:00 INR 6.27 (0.83-1.16) H* 06/17/17 04:00 Gen - NAD HEENT - anicteric CV - RRR Chest - clear anteriorly abd - soft, no enlarged spleen or liver, nontender ext - no edema neuro - nonfocal skin - no bruising1 ICD10 Worksheet Patient Problems: Problems Problem Status Onset Acute blood loss anemia Acute CAD in [place] artery Acute S/P CABG x 2 Acute ~06/12/17 S/P aortic valve replacement with bioprosthetic valve Acute ~06/12/17 S/P mitral valve replacement with bioprosthetic valve Acute ~06/12/17 S/P ventricular septal myectomy Acute ~06/12/17 Asymmetric septal hypertrophy Chronic Hypertrophic obstructive cardiomyopathy (HOCM) Chronic Mitral and aortic insufficiency Chronic 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
--- NOTE | 2017-06-17 10:38 | SOAPPROG ---
SOAP Progress Note Assessment/Plan: Assessment: Elevated LFT no significant change except for slight elevation of bili. Cause unclear, U/S show e/o portal hypertension consider passive congestion from cardiac disease vs acute on chronic liver disease Liver appeared homogenous on U/S. INR increasing also with low PLT ? DIC . Change in MS suspect multifactorial ammonia was not elevated. Plan: Continue supportive care Will expand serology evaluation to r/o underlying liver disease Will discuss with teacher's aide 06/16/17 11:19 06/17/17 10:32 Elevated LFT transaminases remain elevated but bili slightly better. Discussed with hepatology cause remains unclear consider idiosyncratic reaction to medication (consider anesthetic), ischemia vs idiopathic subacute liver failure. Of concern PTINR much more elevated today but in discussion with hematology this may be from medication and/or multifactorial. Pt mental status much improve which decreases concern for worsening liver failure. PLan Await serology w/u Continue supportive care Follow LFT and PY Subjective: CC elevated LFT Pt awake and alert for first time for me. Denies abd pain Objective: Vital Signs Temp Pulse Resp BP Pulse Ox 37.1 C 75 18 114/60 99 06/17/17 07:49 06/17/17 10:00 06/17/17 10:00 06/17/17 10:00 06/17/17 10:00 Laboratory Results 06/17/17 04:00 06/17/17 04:00 06/16/17 06/17/17 06/18/17 05:59 05:59 05:59 Intake Total 1748 2373.5 1200 Output Total 1650 1205 275 Balance 98 1168.5 925 PT 54.4 SEC (12.0-15.0) H D 06/17/17 04:00 INR 6.27 (0.83-1.16) H* 06/17/17 04:00 Physical Exam - Physical Exam General Appearance: alert Respiratory: lungs clear Cardiac/Chest: regular rate, rhythm Abdomen: non-tender, soft ICD10 Worksheet Patient Problems: Problems Problem Status Onset Acute blood loss anemia Acute S/P CABG x 2 Acute ~06/12/17 S/P ventricular septal myectomy Acute ~06/12/17 S/P aortic valve replacement with bioprosthetic valve Acute ~06/12/17 S/P mitral valve replacement with bioprosthetic valve Acute ~06/12/17 Mitral and aortic insufficiency Chronic 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
[2017-06-17] MEDS: PRAVASTATIN SODIUM 40 MG TAB PO SCH (13:47)
--- NOTE | 2017-06-17 15:21 | PDINTPN ---
Elevator Service Technician Progress Note Assessment/Plan: Assessment/plan: 71 F with HOCM s/p septal myectomy AVR, MVR, CABG, CINDA ligation without reported intraoperative complications and extubated per protocol early on on with BP fluctuations requiring occasional albumin initially and known preop short term memory issues. Post op course with lethargy and elevation in LFTs. * S/P surgery as described above without substantial hemodynamic compromise and no BP support required outside of typical parameters * Altered MS- Uncertain etiology, but dramatically improved today- perhaps related to argatroban yesterday? Nonfocal exam- no indications of CVA. Not TTP or HLH given improvement and lack of sig shistos and low ferritin. Watch for clearing and avoid narcotics. Hepatic encephalopathy seems less likely but would consider lactulose regardless of NH3 * Transaminitis- Continued rise despite improvement in MS. Probably from hypoperfusion/BP at some point since her her LFTs were normal prior to surgery ( at least in 01/2017). Statin not helping so held. GI consult noted. Hep serologies negative (Hep A vaccination). Paxil held today, may need to restart tomorrow. * Hypoxia- from atelectasis and now on RA * Hypothyroid- by history. Thyroid studies normal Subjective: No complaints Objective: Vital Signs Temp Pulse Resp BP Pulse Ox 36.4 C 84 23 H 114/50 L 100 06/17/17 12:00 06/17/17 14:00 06/17/17 14:00 06/17/17 14:00 06/17/17 14:00 Laboratory Results 06/17/17 04:00 06/17/17 04:00 06/16/17 06/17/17 06/18/17 05:59 05:59 05:59 Intake Total 1748 2373.5 1445 Output Total 1650 1205 730 Balance 98 1168.5 715 PT 54.4 SEC (12.0-15.0) H D 06/17/17 04:00 INR 6.27 (0.83-1.16) H* 06/17/17 04:00 Physical Exam - Physical Exam General Appearance: alert, no apparent distress EENT: PERRL/EOMI Neck: supple Respiratory: lungs clear, normal breath sounds, No respiratory distress, No accessory muscle use Cardiac/Chest: regular rate, rhythm, No edema Abdomen: non-tender, soft, No organomegaly, No distended Skin: normal color, warm/dry, No cyanosis Lymphatic: no adenopathy Extremities: No pedal edema Neuro/Psych: alert, normal mood/affect, oriented x 3 ICD10 Worksheet Patient Problems: Problems Problem Status Onset Acute blood loss anemia Acute CAD in [place] artery Acute S/P CABG x 2 Acute ~06/12/17 S/P aortic valve replacement with bioprosthetic valve Acute ~06/12/17 S/P mitral valve replacement with bioprosthetic valve Acute ~06/12/17 S/P ventricular septal myectomy Acute ~06/12/17 Asymmetric septal hypertrophy Chronic Hypertrophic obstructive cardiomyopathy (HOCM) Chronic Mitral and aortic insufficiency Chronic 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
[2017-06-17] MEDS: ARGATROBAN 100 MG in NS 100 ML IV SCH (16:13)
[2017-06-17] MEDS: METOPROLOL TARTRATE 25 MG TAB PO SCH (22:11)
[2017-06-18 03:55] LABS: INR 3.35 (0.83-1.16); PROTIME(PATIENT) 33.7 SEC (12.0-15.0)
[2017-06-18] MEDS: LEVOTHYROXINE 137 MCG TAB PO SCH (06:18)
--- NOTE | 2017-06-18 06:18 | SOAPPROG ---
SOAP Progress Note Assessment/Plan: POD#5 CABGx2 (ANDERS-LAD, SVG-RCA), AVR#19 Magna bioprosthesis, MVR#25 Magna bioprosthesis, extended transaortic septal myectomy, open vein harvest left thigh, suture ligation CINDA CAD s/p CABG x2 - Secondsary prevention with BB and ASA. No statin d/t liver injury. - One CT remains, plan for removal tomorrow - PT/OT Moderate AI s/p AVR with bioprosthesis - ASA alone for thromboprophylaxis Severe MR s/p MVR with bioprosthesis - Thromboprophylaxis with Coumadin, INR goal 2-3, for 3 months to be started once coagulopathy resolves HOCM with LVOT/CARTER s/p extended septal myectomy - Continue beta-kailee Acute blood loss anemia with coagulopathy - s/p 1U PRBC with stable HCT - INR elevated d/t liver injury as well as Argatroban Post-op junctional rhythm - Resolved - Pacing wires removed Thrombocytopenia - Secondary to CPB and possible HIT. HIT panel negative but clinically appears to be HIT as platelets have rebounded since starting Argatroban. Will eventually transition to Coumadin with INR 2-3. - Hold heparin SQ while platelets < 100 Dementia with acute AMS - Pt with pre-op memory issues and with worsening post-op secondary to acute liver failure. AMS has resolved with decreased in elevation of transaminases. - Promote sleep hygiene, avoid narcotics Possible shock liver - AST/ALT trending downwards - Meds with hepatic clearance stopped - Continue supportive care DVT prophylaxis - SCDs/Argatroban. Disposition - Plan for SNF in the next 2-3 days. Subjective: Denies pain/SOB. Objective: Vital Signs Temp Pulse Resp BP Pulse Ox 36.1 C 87 25 H 110/49 L 92 06/18/17 00:00 06/18/17 03:58 06/18/17 03:58 06/18/17 03:58 06/18/17 03:58 Laboratory Results 06/18/17 03:40 06/18/17 03:40 06/17/17 06/18/17 06/19/17 05:59 05:59 05:59 Intake Total 2373.5 3113 Output Total 1205 2245 Balance 1168.5 868 PT 33.7 SEC (12.0-15.0) H D 06/18/17 03:40 INR 3.35 (0.83-1.16) H 06/18/17 03:40 Physical Exam - Physical Exam General Appearance: WD/WN, alert, no apparent distress EENT: No scleral icterus (R), No scleral icterus (L) Neck: normal inspection Respiratory: No respiratory distress Cardiac/Chest: regular rate, rhythm Abdomen: non-tender, soft, No distended Skin: normal color, warm/dry Extremities: No pedal edema Neuro/Psych: alert, normal mood/affect, cognition abnormalities, disoriented to person, disoriented to place, disoriented to time, No motor weakness ICD10 Worksheet Patient Problems: Problems Problem Status Onset Acute blood loss anemia Acute CAD in [place] artery Acute S/P CABG x 2 Acute ~06/12/17 S/P aortic valve replacement with bioprosthetic valve Acute ~06/12/17 S/P mitral valve replacement with bioprosthetic valve Acute ~06/12/17 S/P ventricular septal myectomy Acute ~06/12/17 Asymmetric septal hypertrophy Chronic Hypertrophic obstructive cardiomyopathy (HOCM) Chronic Mitral and aortic insufficiency Chronic 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
[2017-06-18] MEDS ORDERED: PROTOCOL POTASSIUM 1 DOSE MISC PRN (06:21)
[2017-06-18] MEDS ORDERED: POTASSIUM Cl (KCl) 10 MEQ in D5W 50 ML IV ONE (07:45)
[2017-06-18] MEDS ORDERED: POTASSIUM Cl (KCl) 50 ML IV SCH (07:45)
[2017-06-18] MEDS ORDERED: POTASSIUM Cl (KCl) 50 ML IV ONE (07:45)
[2017-06-18] MEDS: SENNOSIDES/DOCUSATE SODIUM TAB PO SCH ×2 (08:30→20:36)
[2017-06-18] MEDS: METOPROLOL TARTRATE 25 MG TAB PO SCH ×2 (08:30→20:09)
[2017-06-18] MEDS: ASPIRIN 81 MG CHEWABLE TAB PO SCH (08:31)
[2017-06-18] MEDS: POLYETHYLENE GLYCOL 3350 17 GM PKT PO SCH ×2 (08:41→18:25)
--- NOTE | 2017-06-18 10:01 | SOAPPROG ---
SOWESLEY Progress Note Assessment/Plan: Assessment: Elevated LFT transaminases appears to have crested and now are better with much better PI/INR consistent with resolving liver injury. Expect will continue improve with time. Plan Await serology w/u Continue supportive care Follow LFT and PT Subjective: CC Elevated LFT No abd pain more awake Objective: Vital Signs Temp Pulse Resp BP Pulse Ox 36.1 C 85 20 110/49 L 97 06/18/17 00:00 06/18/17 06:00 06/18/17 06:00 06/18/17 03:58 06/18/17 06:00 Laboratory Results 06/18/17 03:40 06/18/17 03:40 06/17/17 06/18/17 06/19/17 05:59 05:59 05:59 Intake Total 2373.5 3113 Output Total 1205 2245 Balance 1168.5 868 PT 33.7 SEC (12.0-15.0) H D 06/18/17 03:40 INR 3.35 (0.83-1.16) H 06/18/17 03:40 Physical Exam - Physical Exam General Appearance: alert Respiratory: lungs clear Cardiac/Chest: regular rate, rhythm Abdomen: non-tender, soft ICD10 Worksheet Patient Problems: Problems Problem Status Onset Acute blood loss anemia Acute CAD in [place] artery Acute S/P CABG x 2 Acute ~06/12/17 S/P aortic valve replacement with bioprosthetic valve Acute ~06/12/17 S/P mitral valve replacement with bioprosthetic valve Acute ~06/12/17 S/P ventricular septal myectomy Acute ~06/12/17 Asymmetric septal hypertrophy Chronic Hypertrophic obstructive cardiomyopathy (HOCM) Chronic Mitral and aortic insufficiency Chronic 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
--- NOTE | 2017-06-18 11:24 | PDINTPN ---
Flour Mixer Progress Note Assessment/Plan: Assessment/plan: 71 F with HOCM s/p septal myectomy AVR, MVR, CABG, CINDA ligation without reported intraoperative complications and extubated per protocol early on on with BP fluctuations requiring occasional albumin initially and known preop short term memory issues. Post op course with lethargy and elevation in LFTs. * S/P surgery as described above without substantial hemodynamic compromise and no BP support required outside of typical parameters * Altered MS- Uncertain etiology, but dramatically improved- perhaps related to argatroban started 06/16? Nonfocal exam- no indications of CVA. Not TTP or HLH given improvement and lack of sig shistos and low ferritin. Watch for clearing and avoid narcotics. * Transaminitis- LFTs improved after holding paxil 06/16 and no evidence of wd syndrome. Statin also held and argatroban started though unclear if this impacted the LFTs. * Hypoxia- from atelectasis and now on RA * Hypothyroid- by history. Thyroid studies normal 06/18/17 11:22 Subjective: feels well, asking questions about her care Objective: Vital Signs Temp Pulse Resp BP Pulse Ox 36.1 C 85 20 110/49 L 97 06/18/17 00:00 06/18/17 06:00 06/18/17 06:00 06/18/17 03:58 06/18/17 06:00 Laboratory Results 06/18/17 03:40 06/18/17 03:40 06/17/17 06/18/17 06/19/17 05:59 05:59 05:59 Intake Total 2373.5 3113 Output Total 1205 2245 Balance 1168.5 868 PT 33.7 SEC (12.0-15.0) H D 06/18/17 03:40 INR 3.35 (0.83-1.16) H 06/18/17 03:40 Physical Exam - Physical Exam General Appearance: alert, no apparent distress EENT: PERRL/EOMI Neck: supple Respiratory: lungs clear, normal breath sounds, No respiratory distress, No accessory muscle use Cardiac/Chest: regular rate, rhythm, No edema Abdomen: non-tender, soft, No distended Skin: normal color, warm/dry, No cyanosis Lymphatic: no adenopathy Extremities: No pedal edema Neuro/Psych: alert, normal mood/affect, oriented x 3 ICD10 Worksheet Patient Problems: Problems Problem Status Onset Acute blood loss anemia Acute CAD in [place] artery Acute S/P CABG x 2 Acute ~06/12/17 S/P aortic valve replacement with bioprosthetic valve Acute ~06/12/17 S/P mitral valve replacement with bioprosthetic valve Acute ~06/12/17 S/P ventricular septal myectomy Acute ~06/12/17 Asymmetric septal hypertrophy Chronic Hypertrophic obstructive cardiomyopathy (HOCM) Chronic Mitral and aortic insufficiency Chronic 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
--- NOTE | 2017-06-18 13:15 | SOAPPROG ---
SOAP Progress Note Assessment/Plan: Assessment/Plan: 71 yo woman w hx of CHF/HOCM s/p recent cardiopulmonary bypass for AVR/MVR/ myomectomy and 2vCABG 06/12/17 who developed thrombocytopenia, transaminitis, and AMS 1. Thrombocytopenia - likely DIC due to liver failure HIT ab negative and very low probability w intermediate 4T score. Unlikely HIT but sent functional assay (DAWN) as pt seemingly has improved w argatroban although the timing on platelet improvement correlates w improved liver function tests Platelets cont to improve No e/o microangiopathic hemolytic anemia No TTP or HLH 2. Transaminitis - unclear etiology but resolving presumably ischemia vs anesthesia toxicity but no real documentation of hypoperfusion, etc GI following No hepatomegaly consider switching back to heparin w very low clinical suspicion of HIT but will leave up to cardiology 3. AMS - encephalopathy resolved 4. Pt mentions hx of HSP (IgA vasculitis) don't think related to above but worth mentioning 06/18/17 13:11 Subjective: Pt sleeping No new issues Objective: Vital Signs Temp Pulse Resp BP Pulse Ox 36.6 C 62 17 97/56 L 96 06/18/17 08:00 06/18/17 10:00 06/18/17 10:00 06/18/17 10:00 06/18/17 10:00 Laboratory Results 06/18/17 03:40 06/18/17 03:40 06/17/17 06/18/17 06/19/17 05:59 05:59 05:59 Intake Total 2373.5 3113 Output Total 1205 2245 Balance 1168.5 868 PT 33.7 SEC (12.0-15.0) H D 06/18/17 03:40 INR 3.35 (0.83-1.16) H 06/18/17 03:40 Gen - NAD, Asleep Ext - no excessive bruising, bleeding ICD10 Worksheet Patient Problems: Problems Problem Status Onset Acute blood loss anemia Acute CAD in [place] artery Acute S/P CABG x 2 Acute ~06/12/17 S/P aortic valve replacement with bioprosthetic valve Acute ~06/12/17 S/P mitral valve replacement with bioprosthetic valve Acute ~06/12/17 S/P ventricular septal myectomy Acute ~06/12/17 Asymmetric septal hypertrophy Chronic Hypertrophic obstructive cardiomyopathy (HOCM) Chronic Mitral and aortic insufficiency Chronic 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
[2017-06-18] MEDS: traMADol 50 MG TAB PO PRN (15:31)
[2017-06-18] MEDS: PRAVASTATIN SODIUM 40 MG TAB PO SCH (18:24)
[2017-06-18] MEDS ORDERED: POTASSIUM CL 10 MEQ TAB PO ONE (20:00)
[2017-06-18] MEDS: ARGATROBAN 100 MG in NS 100 ML IV SCH (20:38)
[2017-06-19 04:42] LABS: PLATELET COUNT 79 10^3/uL (150-400)
[2017-06-19 04:45] LABS: INR 2.04 (0.83-1.16); PROTIME(PATIENT) 23.1 SEC (12.0-15.0)
[2017-06-19] MEDS: LEVOTHYROXINE 137 MCG TAB PO SCH (05:53)
--- NOTE | 2017-06-19 07:29 | SOAPPROG ---
SOAP Progress Note Assessment/Plan: POD#6 CABGx2 (ANDERS-LAD, SVG-RCA), AVR#19 Magna bioprosthesis, MVR#25 Magna bioprosthesis, extended transaortic septal myectomy, open vein harvest left thigh, suture ligation CINDA CAD s/p CABG x2 - Secondsary prevention with BB and ASA. No statin d/t liver injury. - One CT remains with high output - PT/OT Moderate AI s/p AVR with bioprosthesis - ASA alone for thromboprophylaxis Severe MR s/p MVR with bioprosthesis - Thromboprophylaxis with Coumadin, INR goal 2-3, for 3 months HOCM with LVOT/CARTER s/p extended septal myectomy - Continue beta-kailee Acute blood loss anemia with coagulopathy - s/p 1U PRBC with stable HCT - Coagulopathy resolving, INR elevation d/t Argatroban Post-op junctional rhythm - Resolved - Pacing wires removed Thrombocytopenia - Secondary to CPB and possible HIT. HIT panel negative but clinically appears to be HIT as platelets have rebounded since starting Argatroban. Will eventually transition to Coumadin with INR goal 2-3. Have reached out to hematology for recommendations. Dementia with acute AMS - Pt with pre-op memory issues and with worsening post-op secondary to acute liver failure and now resolved. - Promote sleep hygiene, avoid narcotics Possible shock liver - AST/ALT trending downwards - Meds with hepatic clearance stopped - Continue supportive care DVT prophylaxis - SCDs/Argatroban. Disposition - Plan for SNF earliest Thursday Subjective: Denies pain/SOB. Objective: Vital Signs Temp Pulse Resp BP Pulse Ox 36.5 C 91 16 101/50 L 98 06/19/17 07:23 06/19/17 07:23 06/19/17 07:23 06/19/17 07:23 06/19/17 07:23 Laboratory Results 06/19/17 04:15 06/18/17 06/19/17 06/20/17 05:59 05:59 05:59 Intake Total 3113 1889 Output Total 2245 2280 70 Balance 868 -391 -70 PT 23.1 SEC (12.0-15.0) H D 06/19/17 04:15 INR 2.04 (0.83-1.16) H 06/19/17 04:15 Physical Exam - Physical Exam General Appearance: WD/WN, alert, no apparent distress EENT: No scleral icterus (R), No scleral icterus (L) Neck: normal inspection Respiratory: No respiratory distress Cardiac/Chest: regular rate, rhythm Abdomen: non-tender, soft, No distended Skin: normal color, warm/dry Extremities: pedal edema Neuro/Psych: no motor/sensory deficits, alert, normal mood/affect, cognition abnormalities, disoriented to person, disoriented to time ICD10 Worksheet Patient Problems: Problems Problem Status Onset Acute blood loss anemia Acute CAD in [place] artery Acute S/P CABG x 2 Acute ~06/12/17 S/P aortic valve replacement with bioprosthetic valve Acute ~06/12/17 S/P mitral valve replacement with bioprosthetic valve Acute ~06/12/17 S/P ventricular septal myectomy Acute ~06/12/17 Asymmetric septal hypertrophy Chronic Hypertrophic obstructive cardiomyopathy (HOCM) Chronic Mitral and aortic insufficiency Chronic 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
[2017-06-19] MEDS: POLYETHYLENE GLYCOL 3350 17 GM PKT PO SCH ×2 (08:19→17:36)
[2017-06-19] MEDS: METOPROLOL TARTRATE 25 MG TAB PO SCH ×2 (08:21→20:05)
[2017-06-19] MEDS: ASPIRIN 81 MG CHEWABLE TAB PO SCH (08:21)
[2017-06-19] MEDS: SENNOSIDES/DOCUSATE SODIUM TAB PO SCH ×2 (08:22→22:27)
[2017-06-19] MEDS: FUROSEMIDE 40 MG TAB PO SCH (09:32)
[2017-06-19] MEDS: POTASSIUM CL 20 MEQ TAB PO SCH (09:35)
[2017-06-19] MEDS: traMADol 50 MG TAB PO PRN ×2 (09:42→20:07)
--- NOTE | 2017-06-19 10:14 | SOAPPROG ---
[facility] Progress Note Assessment/Plan: Assessment: Elevated LFT transaminases appears to have crested and now are better with much better PI/INR consistent with resolving liver injury. Expect will continue improve with time. Plan Await serology w/u Continue supportive care Follow LFT and PT 06/19/17 10:11 Elevated LFt continue to improve wtih better PT/NR serolgoy w/u negative Plan: Continue supportive and post op care Follow LFT while in hospital but may take weeks to return to normal Check LFt in 2 weeks Will sign off Subjective: CC elevated LFT Pt c/o fatigue Objective: Vital Signs Temp Pulse Resp BP Pulse Ox 36.5 C 91 16 101/50 L 98 06/19/17 07:23 06/19/17 07:23 06/19/17 07:23 06/19/17 07:23 06/19/17 07:23 Laboratory Results 06/19/17 04:15 06/19/17 04:15 06/18/17 06/19/17 06/20/17 05:59 05:59 05:59 Intake Total 3113 1889 Output Total 2245 2280 70 Balance 868 -391 -70 PT 23.1 SEC (12.0-15.0) H D 06/19/17 04:15 INR 2.04 (0.83-1.16) H 06/19/17 04:15 Physical Exam - Physical Exam General Appearance: alert Respiratory: lungs clear Cardiac/Chest: regular rate, rhythm Abdomen: normal bowel sounds ICD10 Worksheet Patient Problems: Problems Problem Status Onset Acute blood loss anemia Acute CAD in [place] artery Acute S/P CABG x 2 Acute ~06/12/17 S/P aortic valve replacement with bioprosthetic valve Acute ~06/12/17 S/P mitral valve replacement with bioprosthetic valve Acute ~06/12/17 S/P ventricular septal myectomy Acute ~06/12/17 Asymmetric septal hypertrophy Chronic Hypertrophic obstructive cardiomyopathy (HOCM) Chronic Mitral and aortic insufficiency Chronic 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
[2017-06-19] MEDS: SODIUM CL NASAL 45 ML BTL EACHNARE PRN (12:04)
--- NOTE | 2017-06-19 14:13 | SOAPPROG ---
SOAP Progress Note Assessment/Plan: Assessment: 1) Thrombocytopenia likely secondary to DIC 2) Transaminitis secondary to acute liver injury 3) Altered mental status (improved) Plan: No clinical evidence of HIT. APOLINAR assay negative, seratonin release assay sent and pending. Patient currently on Argatroban, and will be switched to warfarin at the discretion of CT surgery. Duration of warfarin therapy per CT surgery. Given continued rise in platelet count, ok to switch to warfarin when felt appropriate. LFT's continue to improve, and the overall picture seems consistent with resolving DIC secondary to acute liver injury which is getting better. Our service will follow intermittently. 06/19/17 14:07 06/19/17 14:08 06/19/17 14:09 Subjective: Feels well. Sitting in chair when seen. No bleeding episodes. Remains on Argatroban. Objective: Vital Signs Temp Pulse Resp BP Pulse Ox 36.7 C 71 20 91/59 L 93 06/19/17 12:00 06/19/17 12:00 06/19/17 12:00 06/19/17 12:00 06/19/17 12:00 Laboratory Results 06/19/17 04:15 06/19/17 04:15 06/18/17 06/19/17 06/20/17 05:59 05:59 05:59 Intake Total 3113 1889 1450 Output Total 2245 2280 1020 Balance 868 -391 430 PT 23.1 SEC (12.0-15.0) H D 06/19/17 04:15 INR 2.04 (0.83-1.16) H 06/19/17 04:15 - Time Spent With Patient Time Spent With Patient: 20 minutes Physical Exam - Physical Exam General Appearance: alert, no apparent distress EENT: PERRL/EOMI Skin: other (No pettichiae) Extremities: other (Well perfused) Neuro/Psych: alert, normal mood/affect, oriented x 3 ICD10 Worksheet Patient Problems: Problems Problem Status Onset Acute blood loss anemia Acute CAD in [place] artery Acute S/P CABG x 2 Acute ~06/12/17 S/P aortic valve replacement with bioprosthetic valve Acute ~06/12/17 S/P mitral valve replacement with bioprosthetic valve Acute ~06/12/17 S/P ventricular septal myectomy Acute ~06/12/17 Asymmetric septal hypertrophy Chronic Hypertrophic obstructive cardiomyopathy (HOCM) Chronic Mitral and aortic insufficiency Chronic 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
--- NOTE | 2017-06-19 14:40 | ASMTCMCOM ---
CM Note CM Note Notes: CM spoke w/ Manuel, PA regarding d/c POC. Anticipate d/c for Thursday. CM met w/ pt and for dispo planning. PT is recommending SNF. Pt has chosen [facility]. CM completed non triggering pasrr. [facility] does not have a bed available for pt. [facility] can accept pt. Monica from [facility] will stop by to see pt. CM notified pt and of the acceptance and encouraged a tour of the facility. CM to follow. Plan: [facility] Date Signed: 06/19/2017 02:39 PM Electronically Signed By:MAXIMILIANO Lopez
[2017-06-20] MEDS: LEVOTHYROXINE 137 MCG TAB PO SCH (04:43)
[2017-06-20] MEDS: ARGATROBAN 100 MG in NS 100 ML IV SCH (04:44)
[2017-06-20 05:40] LABS: INR 4.26 (0.83-1.16); PROTIME(PATIENT) 40.5 SEC (12.0-15.0)
[2017-06-20] MEDS ORDERED: POLYETHYLENE GLYCOL 3350 17 GM PKT PO PRN (08:15)
--- NOTE | 2017-06-20 08:25 | SOAPPROG ---
SOAP Progress Note Assessment/Plan: Assessment: POD#8 CABGx2 (ANDERS-LAD, SVG-RCA), AVR#19 Magna bioprosthesis, MVR# 25 Magna bioprosthesis, extended transaortic septal myectomy, open vein harvest left thigh, suture ligation CINDA Severe MR s/p MVR with bioprosthesis - Thromboprophylaxis with Coumadin, INR goal 2-3, for 3 months - Transition from Argatroban to Coumadin once platelet count > 100. Overlap 3-5 days as per pharmacy/hematology protocol. Moderate AI s/p AVR with bioprosthesis - Thromboprophylaxis as per MVR HOCM with asymmetric septal hypertrophy/CARTER/LVOT gradient - Normalized gradients s/p extended septal myectomy - Beta-kailee uptitrated as tolerated Incidental CAD s/p CABG x2 - Secondary prevention with baby ASA and BB. Statin on hold d/t hepatopathy. - Two of three chest tubes out Acute blood loss anemia with thrombocytopenia and coagulopathy - Stable HCT s/p 1U PRBC. No evidence active bleeding. - Downward trending platelets. Empirically started on Argatroban with good effect. - HIT and addtl studies per hematology thus far negative. DIC suspected. Postoperative acute liver injury - Worsening LFTs/INR with AMS. Presumably ischemic hepatitis secondary to nonpulsatile CPB flows and early postop hypotension req temporary pressor support. Possible DIC. Echo and abd US unremarkable. Hepatitis serologies neg. Steady improvement w supportive therapies. - GI no longer following. Postop altered mental status - Hx TIA and pre-op memory issues, suspected dementia. - Postop exacerbation multifactorial - metabolic (hepatic), impaired cerebral perfusion (periop), withdrawal SSRI. - Sleep hygiene promoted, sedatives/narcotics avoided. - Skilled by PT for SNF Post-op junctional rhythm - Resolved. - TCPWs clipped. Plan: Cont metoprolol 12.5 mg BID with conservative hold parameters. Cont Lasix 40 mg daily. Resume low dose Paxil once off Argatroban. Start daily Coumadin as per pharmacy/hematology. Keep remaining pleural tube for one more day. Inc activity as tolerated. Disposition - Anticipate SNF when anticoagulation regimen stable. 06/20/17 08:16 Subjective: Doing ok. Researching SNFs in anticipation of transfer early next week. Hopes to be out of the hospital by her birthday. Feels that her focus and memory is improving. Disappointed in ambulatory capacity and degree of generalized fatigue. Objective: Vital Signs Temp Pulse Resp BP Pulse Ox 36.6 C 75 14 102/47 L 97 06/20/17 08:00 06/20/17 08:00 06/20/17 08:00 06/20/17 08:00 06/20/17 08:00 Laboratory Results 06/20/17 05:00 06/20/17 05:00 06/19/17 06/20/17 06/21/17 05:59 05:59 05:59 Intake Total 1889 2175 Output Total 2280 2090 Balance -391 85 PT 40.5 SEC (12.0-15.0) H D 06/20/17 05:00 INR 4.26 (0.83-1.16) H 06/20/17 05:00 Cardioresp status stable. Adequate fluid balance. Pleural fluid mostly serous. Output still a bit too high for drain removal. Platelet count steadily rising. Transaminases steadily falling. Physical Exam - Physical Exam General Appearance: alert, no apparent distress Respiratory: crackles (basilar), other (Chris to bulb suction, mostly serous drainage.) Cardiac/Chest: regular rate, rhythm, other (Sternum grossly stable. 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
[2017-06-20] MEDS: POTASSIUM CL 20 MEQ TAB PO SCH (08:39)
[2017-06-20] MEDS: METOPROLOL TARTRATE 25 MG TAB PO SCH ×2 (08:39→20:38)
[2017-06-20] MEDS: ASPIRIN 81 MG CHEWABLE TAB PO SCH (08:39)
[2017-06-20] MEDS: FUROSEMIDE 40 MG TAB PO SCH (08:39)
[2017-06-20] MEDS ORDERED: SENNOSIDES/DOCUSATE SODIUM TAB PO PRN (09:00)
[2017-06-20] MEDS: POLYETHYLENE GLYCOL 3350 17 GM PKT PO SCH (09:21)
--- NOTE | 2017-06-20 11:55 | SOAPPROG ---
SOAP Progress Note Assessment/Plan: Assessment: 1) Thrombocytopenia likely secondary to DIC 2) Transaminitis secondary to acute liver injury 3) Altered mental status (improved) Plan: No clinical evidence of HIT. APOLINAR assay negative, seratonin release assay sent and pending. Patient currently on Argatroban, begin warfarin today per protocol, discussed with CT surgery Plan: 06/20/17 11:54 Objective: Vital Signs Temp Pulse Resp BP Pulse Ox 98.1 F 76 16 92/54 L 97 06/20/17 11:49 06/20/17 11:49 06/20/17 11:49 06/20/17 11:49 06/20/17 11:49 Laboratory Results 06/20/17 05:00 06/20/17 05:00 06/19/17 06/20/17 06/21/17 05:59 05:59 05:59 Intake Total 1889 2175 240 Output Total 2280 2090 600 Balance -391 85 -360 PT 40.5 SEC (12.0-15.0) H D 06/20/17 05:00 INR 4.26 (0.83-1.16) H 06/20/17 05:00 ICD10 Worksheet Patient Problems: Problems Problem Status Onset Acute blood loss anemia Acute CAD in [place] artery Acute S/P CABG x 2 Acute ~06/12/17 S/P aortic valve replacement with bioprosthetic valve Acute ~06/12/17 S/P mitral valve replacement with bioprosthetic valve Acute ~06/12/17 S/P ventricular septal myectomy Acute ~06/12/17 Asymmetric septal hypertrophy Chronic Hypertrophic obstructive cardiomyopathy (HOCM) Chronic Mitral and aortic insufficiency Chronic 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
[2017-06-20] MEDS ORDERED: WARFARIN SODIUM 2.5 MG TAB PO ONE (16:00)
[2017-06-20] MEDS ORDERED: WARFARIN SODIUM 5 MG TAB PO ONE (16:00)
[2017-06-20 16:01] LABS: INR 1.27 (0.83-1.16); PROTIME(PATIENT) 16.1 SEC (12.0-15.0)
[2017-06-20] MEDS ORDERED: PSYLLIUM METAMUCIL 1 PKT PO PRN (18:10)
[2017-06-20] MEDS ORDERED: NS 500 ML IV ONE (22:00)
[2017-06-21 03:58] LABS: INR 1.6 (0.83-1.16); PROTIME(PATIENT) 19.2 SEC (12.0-15.0)
--- NOTE | 2017-06-21 08:09 | SOAPPROG ---
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 Overlap 3-5 days as per pharmacy/hematology protocol. Moderate AI s/p AVR with bioprosthesis - Thromboprophylaxis as per MVR HOCM with asymmetric septal hypertrophy/CARTER/LVOT gradient - Normalized gradients s/p extended septal myectomy - Beta-kailee as tolerated Incidental CAD s/p CABG x2 - Secondary prevention with baby ASA and BB. Statin once hepatopathy fully resolved - Two of three chest tubes out Acute blood loss anemia with thrombocytopenia and coagulopathy - Stable HCT s/p 1U PRBC. No evidence active bleeding. - Downward trending platelets. Empirically started on Argatroban with good effect. - HIT and addtl studies per hematology thus far negative. DIC suspected. Postoperative acute liver injury - Worsening LFTs/INR with AMS. Presumably ischemic hepatitis secondary to nonpulsatile CPB flows and early postop hypotension req temporary pressor support. Possible DIC. Echo and abd US unremarkable. Hepatitis serologies neg. Steady improvement w supportive therapies. - GI no longer following. Postop altered mental status - Hx TIA and pre-op memory issues, suspected dementia. - Postop exacerbation multifactorial - metabolic (hepatic), impaired cerebral perfusion (periop), withdrawal SSRI. - Sleep hygiene promoted, sedatives/narcotics avoided. - Skilled by PT for SNF Post-op junctional rhythm - Resolved. - TCPWs clipped. Plan: Remove remaining pleural tube. Cont metoprolol 12.5 mg BID with conservative hold parameters. Stop lasix. Resume low dose Paxil once off Argatroban. Cont daily Coumadin as per pharmacy/hematology. Cont inc activity as tolerated. Disposition - SNF ([facility]) when anticoagulation regimen stable. Possibly Tu. 06/21/17 08:05 Subjective: Feels peppier today. Seeking confirmation of her recollections of hospital stay. Eager for information and conversation. Objective: Vital Signs Temp Pulse Resp BP Pulse Ox 36.7 C 85 16 99/54 L 94 06/21/17 03:27 06/21/17 03:27 06/21/17 03:27 06/21/17 03:27 06/21/17 03:27 Laboratory Results 06/21/17 03:30 06/20/17 05:00 06/20/17 06/21/17 06/22/17 05:59 05:59 05:59 Intake Total 2175 1615.7 Output Total 2090 1900 Balance 85 -284.3 PT 19.2 SEC (12.0-15.0) H 06/21/17 03:30 INR 1.60 (0.83-1.16) H 06/21/17 03:30 A bit confused last night per nursing. No agitation or restlessness. NS bolus given for marginal SBP w good effect. Vigorous UOP on lasix. Platelet count cont to rise. INR screen off Argatroban 1.27. - Pending Discharge Pending Discharge Within 48 Hours: Yes Pending Discharge Date: 06/23/17 Pending Discharge Time: 11:00 Physical Exam - Physical Exam General Appearance: alert, no apparent distress Respiratory: lungs clear (grossly), other (leatha to bulb suction, clear serous drainage) Cardiac/Chest: regular rate, rhythm, other (Sternototmy and LLE venotomy CDI) Abdomen: non-tender, soft Skin: warm/dry Extremities: other (no visible edema) ICD10 Worksheet Patient Problems: Problems Problem Status Onset Acute blood loss anemia Acute CAD in [place] artery Acute S/P CABG x 2 Acute ~06/12/17 S/P aortic valve replacement with bioprosthetic valve Acute ~06/12/17 S/P mitral valve replacement with bioprosthetic valve Acute ~06/12/17 S/P ventricular septal myectomy Acute ~06/12/17 Asymmetric septal hypertrophy Chronic Hypertrophic obstructive cardiomyopathy (HOCM) Chronic Mitral and aortic insufficiency Chronic 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
[2017-06-21] MEDS: METOPROLOL TARTRATE 25 MG TAB PO SCH ×2 (08:25→20:46)
[2017-06-21] MEDS: LEVOTHYROXINE 137 MCG TAB PO SCH (08:26)
[2017-06-21] MEDS: ASPIRIN 81 MG CHEWABLE TAB PO SCH (08:26)
[2017-06-21] MEDS: traMADol 50 MG TAB PO PRN (15:41)
[2017-06-21] MEDS ORDERED: WARFARIN SODIUM 5 MG TAB PO ONE (16:00)
[2017-06-22] MEDS: LEVOTHYROXINE 137 MCG TAB PO SCH (04:57)
--- NOTE | 2017-06-22 07:13 | SOAPPROG ---
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 Overlap 3-5 days as per pharmacy/hematology protocol. Moderate AI s/p AVR with bioprosthesis - Thromboprophylaxis as per MVR HOCM with asymmetric septal hypertrophy/CARTER/LVOT gradient - Normalized gradients s/p extended septal myectomy - Beta-kailee as tolerated Incidental CAD s/p CABG x2 - Secondary prevention with baby ASA and BB. Statin once hepatopathy fully resolved - All chest tubes out Acute blood loss anemia with thrombocytopenia and coagulopathy - Stable HCT s/p 1U PRBC. No evidence active bleeding. - Downward trending platelets. Empirically started on Argatroban with good effect. - HIT and addtl studies per hematology thus far negative. DIC suspected. Postoperative acute liver injury - Worsening LFTs/INR with AMS. Presumably ischemic hepatitis secondary to nonpulsatile CPB flows and early postop hypotension req temporary pressor support. Possible DIC. Echo and abd US unremarkable. Hepatitis serologies neg. Steady improvement w supportive therapies. - GI no longer following. Postop altered mental status - Hx TIA and pre-op memory issues, suspected dementia. - Postop exacerbation multifactorial - metabolic (hepatic), impaired cerebral perfusion (periop), withdrawal SSRI. - Sleep hygiene promoted, sedatives/narcotics avoided. - Skilled by PT for SNF Post-op junctional rhythm - Resolved. - TCPWs clipped. Plan: Switch IV access from QLC to PL. Ck UA. Cont metoprolol 12.5 mg BID with conservative hold parameters. Resume low dose Paxil once off Argatroban. Cont daily Coumadin as per pharmacy/hematology. Cont inc activity as tolerated. Disposition - SNF ([facility]) when anticoagulation regimen stable. Possibly tomorrow. 06/22/17 07:12 Subjective: Feeling more like her usual self. Apologetic for any bad behavior while she was "out of it". Recognizes she is deconditioned and would benefit from SNF rehab. Is having some loose stools and urinary frequency. Objective: Vital Signs Temp Pulse Resp BP Pulse Ox 36.7 C 98 18 105/60 94 06/22/17 04:56 06/22/17 04:56 06/22/17 04:56 06/22/17 04:56 06/22/17 04:56 Laboratory Results 06/22/17 04:45 06/22/17 04:45 06/21/17 06/22/17 06/23/17 05:59 05:59 05:59 Intake Total 1615.7 1910.6 Output Total 1900 2595 900 Balance -284.3 -684.4 -900 PT 19.2 SEC (12.0-15.0) H 06/21/17 03:30 INR 1.60 (0.83-1.16) H 06/21/17 03:30 Cardioresp status stable. Adequate I/Os. Sl inc WBC. Afeb. CXR NAF. Ongoing normalization of LFTs and inc platelet count. INR subtherapeutic. Physical Exam - Physical Exam General Appearance: alert, no apparent distress Respiratory: lungs clear (grossly), other (chest tube site dressing CDI) Cardiac/Chest: regular rate, rhythm, other (Sternotomy and LLE venotomy CDI) Abdomen: non-tender, soft Skin: warm/dry Extremities: swelling (trace) ICD10 Worksheet Patient Problems: Problems Problem Status Onset Acute blood loss anemia Acute CAD in [place] artery Acute S/P CABG x 2 Acute ~06/12/17 S/P aortic valve replacement with bioprosthetic valve Acute ~06/12/17 S/P mitral valve replacement with bioprosthetic valve Acute ~06/12/17 S/P ventricular septal myectomy Acute ~06/12/17 Asymmetric septal hypertrophy Chronic Hypertrophic obstructive cardiomyopathy (HOCM) Chronic Mitral and aortic insufficiency Chronic 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 <Dandy Rush - Last Filed: 06/22/17 11:24> SOAP Progress Note Assessment/Plan: Assessment: Plan: 06/22/17 11:22 disagree no evidence "cerebral perfusion impairment" periop pump records do not reflect that and was mentally normal immediately post op and for 36+ hours before metabolic encrphalopathy Objective: Vital Signs Temp Pulse Resp BP Pulse Ox 36.8 C 105 H 18 116/67 95 06/22/17 08:16 06/22/17 08:16 06/22/17 08:16 06/22/17 08:16 06/22/17 08:16 Laboratory Results 06/22/17 04:45 06/22/17 04:45 06/21/17 06/22/17 06/23/17 05:59 05:59 05:59 Intake Total 1615.7 1910.6 740 Output Total 1900 2595 900 Balance -284.3 -684.4 -160 PT 22.9 SEC (12.0-15.0) H 06/22/17 04:45 INR 2.02 (0.83-1.16) H 06/22/17 04:45
[2017-06-22 08:04] LABS: INR 2.02 (0.83-1.16); PROTIME(PATIENT) 22.9 SEC (12.0-15.0)
[2017-06-22] MEDS: METOPROLOL TARTRATE 25 MG TAB PO SCH ×2 (09:09→21:01)
[2017-06-22] MEDS: ASPIRIN 81 MG CHEWABLE TAB PO SCH (09:09)
[2017-06-22] MEDS ORDERED: LOPERAMIDE HCL 2 MG CAP PO PRN (12:02)
--- NOTE | 2017-06-22 12:28 | ASMTCMCOM ---
CM Note CM Note Notes: 06/22/2017 Case Management Note Reviewed chart, discussed with Mecca HYLTON. Pt may d/c tomorrow. Notified [facility] via phone. Case Management d/c poc: to [facility] Case Management to follow. Date Signed: 06/22/2017 12:28 PM Electronically Signed By:Bety Welch RN
[2017-06-22] MEDS: CIPROFLOXACIN 250 MG TAB PO SCH ×2 (15:29→21:00)
[2017-06-22] MEDS ORDERED: WARFARIN SODIUM 5 MG TAB PO ONE (16:00)
[2017-06-22] MEDS: MELATONIN 3 MG TAB PO SCH (22:59)
[2017-06-23 05:02] LABS: INR 2.44 (0.83-1.16); PROTIME(PATIENT) 26.5 SEC (12.0-15.0)
[2017-06-23] MEDS: LEVOTHYROXINE 137 MCG TAB PO SCH (05:37)
--- NOTE | 2017-06-23 06:48 | SOAPPROG ---
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 Day 4 of overlap as per pharmacy/hematology protocol. Therapeutic INR expected by tomorrow. Moderate AI s/p AVR with bioprosthesis - Thromboprophylaxis as per MVR HOCM with asymmetric septal hypertrophy/CARTER/LVOT gradient - Normalized gradients s/p extended septal myectomy - Beta-kailee as tolerated Incidental CAD s/p CABG x2 - Secondary prevention with baby ASA and BB. Statin once hepatopathy fully resolved - All chest tubes out Acute blood loss anemia with thrombocytopenia and coagulopathy - Stable HCT s/p 1U PRBC. No evidence active bleeding. - Downward trending platelets. Empirically started on Argatroban with good effect. - HIT and addtl studies per hematology thus far negative. DIC suspected. Postoperative acute liver injury - Worsening LFTs/INR with AMS. Presumably ischemic hepatitis secondary to nonpulsatile CPB flows and early postop hypotension req temporary pressor support. Possible DIC. Echo and abd US unremarkable. Hepatitis serologies neg. Steady improvement w supportive therapies. - GI no longer following. Postop altered mental status - Hx TIA and pre-op memory issues, suspected dementia. - Postop exacerbation multifactorial - primarily metabolic (hepatic). - Sleep hygiene promoted, sedatives/narcotics avoided. - Skilled by PT for SNF Post-op junctional rhythm - Resolved. - TCPWs clipped. Postop abnormal urinalysis - Empirically started on 3 day course Cipro Plan: Cont current meds. Resume low dose Paxil once off Argatroban. Cont daily Coumadin as per pharmacy/hematology. Consider Arixtra bridge if peripheral IV access lost and INR < 1.7. Disposition - [facility] ([facility]) when anticoagulation regimen stable. Possibly tomorrow. 06/23/17 06:45 Subjective: Doing ok. Recognizes that memory and focus worse at night. Pleased to see another birthday. BMs firming up. Objective: Vital Signs Temp Pulse Resp BP Pulse Ox 36.8 C 82 20 103/51 L 93 06/23/17 03:18 06/23/17 03:18 06/23/17 03:18 06/23/17 03:18 06/23/17 03:18 Laboratory Results 06/22/17 04:45 06/22/17 04:45 06/22/17 06/23/17 06/24/17 05:59 05:59 05:59 Intake Total 1910.6 1863 Output Total 2595 3620 Balance -684.4 -1757 PT 26.5 SEC (12.0-15.0) H 06/23/17 04:30 INR 2.44 (0.83-1.16) H 06/23/17 04:30 Cardioresp status stable. Confusion at night. Pulled out IV. INR remains subtherapeutic. Argatroban drip rate increased early this am. Physical Exam - Physical Exam General Appearance: alert, no apparent distress Respiratory: lungs clear (grossly) Cardiac/Chest: regular rate, rhythm, other (Sternotomy and LLE venotomy CDI) Abdomen: non-tender, soft Skin: warm/dry Extremities: other (no visible edema) ICD10 Worksheet Patient Problems: Problems Problem Status Onset Abnormal urinalysis Acute Acute blood loss anemia Acute CAD in [place] artery Acute S/P CABG x 2 Acute ~06/12/17 S/P aortic valve replacement with bioprosthetic valve Acute ~06/12/17 S/P mitral valve replacement with bioprosthetic valve Acute ~06/12/17 S/P ventricular septal myectomy Acute ~06/12/17 Asymmetric septal hypertrophy Chronic Hypertrophic obstructive cardiomyopathy (HOCM) Chronic Mitral and aortic insufficiency Chronic 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
[2017-06-23] MEDS: METOPROLOL TARTRATE 25 MG TAB PO SCH ×2 (10:09→21:24)
[2017-06-23] MEDS: MULTIVITAMINS 1 EACH TAB PO SCH (10:10)
[2017-06-23] MEDS: SODIUM CL NASAL 45 ML BTL EACHNARE PRN (10:10)
[2017-06-23] MEDS: ASPIRIN 81 MG CHEWABLE TAB PO SCH (10:10)
[2017-06-23] MEDS: CIPROFLOXACIN 250 MG TAB PO SCH ×2 (10:10→21:24)
[2017-06-23] MEDS ORDERED: POTASSIUM CL 20 MEQ TAB PO ONE (12:35)
--- NOTE | 2017-06-23 14:05 | ASMTCMCOM ---
CM Note CM Note Notes: 06/23/2017 Case Management Note Met w/pt to discuss PT and OT recommendations for home care. [place] outside of [place]". Contacted [facility]. Faxed referral. [facility] able to service pt. Confirmed address. Case Management d/c poc: [facility] RN PT OT Case Management to follow. Date Signed: 06/23/2017 02:05 PM Electronically Signed By:Bety Welch RN
[2017-06-23] MEDS: CHOLECALCIFEROL VIT D3 1,000 UNITS TAB PO SCH (15:43)
[2017-06-23] MEDS ORDERED: WARFARIN SODIUM 5 MG TAB PO ONE (16:00)
--- NOTE | 2017-06-23 17:01 | SOAPPROG ---
SOAP Progress Note Assessment/Plan: Assessment: 1) Thrombocytopenia likely secondary to DIC (resolved) 2) Transaminitis secondary to acute liver injury 3) Altered mental status (improved) Plan: No clinical evidence of HIT. APOLINAR assay negative, seratonin release assay was apparently sent and pending. Patient currently on Argatroban, and warfarin has been started. Transition off of Argatroban, and onto warfarin per protocol. She will liklely be able to stop Argatroban tomorrow. Duration of warfarin therapy per CT surgery. LFT's continue to improve, and the overall picture seems consistent with resolving DIC secondary to acute liver injury which is getting better. Will check a CBC tomorrow. If platelet count normal, then no further inpatient heme follow up needed. I think an outpatient heme visit is reasonable to follow up on her seratonin release assay result. Subjective: Feels well. Denies pain. Objective: Vital Signs Temp Pulse Resp BP Pulse Ox 36.8 C 96 20 99/55 L 91 L 06/23/17 15:52 06/23/17 15:52 06/23/17 15:52 06/23/17 15:52 06/23/17 15:52 Laboratory Results 06/22/17 04:45 06/23/17 09:15 06/22/17 06/23/17 06/24/17 05:59 05:59 05:59 Intake Total 1910.6 1863 480 Output Total 2595 3620 400 Balance -684.4 -1757 80 PT 26.5 SEC (12.0-15.0) H 06/23/17 04:30 INR 2.44 (0.83-1.16) H 06/23/17 04:30 - Time Spent With Patient Time Spent With Patient: 15 minutes Physical Exam - Physical Exam General Appearance: alert Skin: other (No ecchymosis or pettichiae) Extremities: other (Well perfused) ICD10 Worksheet Patient Problems: Problems Problem Status Onset Abnormal urinalysis Acute Acute blood loss anemia Acute CAD in [place] artery Acute S/P CABG x 2 Acute ~06/12/17 S/P aortic valve replacement with bioprosthetic valve Acute ~06/12/17 S/P mitral valve replacement with bioprosthetic valve Acute ~06/12/17 S/P ventricular septal myectomy Acute ~06/12/17 Asymmetric septal hypertrophy Chronic Hypertrophic obstructive cardiomyopathy (HOCM) Chronic Mitral and aortic insufficiency Chronic 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
[2017-06-23] MEDS ORDERED: guaiFENesin 200 MG/10 ML UDL PO PRN (20:34)
[2017-06-23] MEDS: MELATONIN 3 MG TAB PO SCH (21:24)
[2017-06-23] MEDS: ARGATROBAN 100 MG in NS 100 ML IV SCH (21:30)
[2017-06-24 02:41] LABS: PLATELET COUNT 253 10^3/uL (150-400)
[2017-06-24 02:51] LABS: INR 3.56 (0.83-1.16); PROTIME(PATIENT) 35.3 SEC (12.0-15.0)
[2017-06-24] MEDS: LEVOTHYROXINE 137 MCG TAB PO SCH (06:13)
[2017-06-24 06:51] LABS: INR 2.71 (0.83-1.16); PROTIME(PATIENT) 28.7 SEC (12.0-15.0)
--- NOTE | 2017-06-24 07:38 | SOAPPROG ---
SOAP Progress Note Assessment/Plan: POD#12: CABGx2 (ANDERS-LAD, SVG-RCA), AVR#19 Magna bioprosthesis, MVR#25 Magna bioprosthesis, extended transaortic septal myectomy, open vein harvest left thigh, suture ligation CINDA CAD s/p CABG x2 - Secondsary prevention with BB and ASA. No statin d/t liver injury. 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 HIT panel negative but clinically appears to be HIT as platelets have rebounded since starting Argatroban. Coumadin now therapeutic with INR goal 2-3. Hematology to follow as outpatient. 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 - continue supportive care Possible shock liver - Resolved Postop abnormal urinalysis - Empirically started on 3 day course Cipro DVT prophylaxis - SCDs/Coumadin . Disposition - Home today with services Subjective: No complaints. Happy to be going home. Objective: Vital Signs Temp Pulse Resp BP Pulse Ox 36.9 C 89 20 114/54 L 90 L 06/24/17 04:00 06/24/17 04:00 06/24/17 04:00 06/24/17 04:00 06/24/17 04:00 Laboratory Results 06/24/17 02:05 06/23/17 09:15 06/23/17 06/24/17 06/25/17 05:59 05:59 05:59 Intake Total 1863 2224.8 Output Total 3620 2150 Balance -1757 74.8 PT 28.7 SEC (12.0-15.0) H 06/24/17 06:25 INR 2.71 (0.83-1.16) H 06/24/17 06:25 Physical Exam - Physical Exam General Appearance: WD/WN, alert, no apparent distress EENT: No scleral icterus (R), No scleral icterus (L) Neck: normal inspection Respiratory: No respiratory distress Cardiac/Chest: regular rate, rhythm Abdomen: non-tender, soft, No distended Skin: normal color, warm/dry Extremities: pedal edema Neuro/Psych: no motor/sensory deficits, alert, normal mood/affect, cognition abnormalities ICD10 Worksheet Patient Problems: Problems Problem Status Onset Abnormal urinalysis Acute Acute blood loss anemia Acute CAD in [place] artery Acute S/P CABG x 2 Acute ~06/12/17 S/P aortic valve replacement with bioprosthetic valve Acute ~06/12/17 S/P mitral valve replacement with bioprosthetic valve Acute ~06/12/17 S/P ventricular septal myectomy Acute ~06/12/17 Asymmetric septal hypertrophy Chronic Hypertrophic obstructive cardiomyopathy (HOCM) Chronic Mitral and aortic insufficiency Chronic 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
[2017-06-24] MEDS ORDERED: FUROSEMIDE 40 MG/4 ML VIAL IVP ONE (09:00)
[2017-06-24] MEDS ORDERED: POTASSIUM CL 20 MEQ TAB PO ONE (09:00)
[2017-06-24] MEDS: MULTIVITAMINS 1 EACH TAB PO SCH (10:07)
[2017-06-24] MEDS: ASPIRIN 81 MG CHEWABLE TAB PO SCH (10:07)
[2017-06-24] MEDS: CIPROFLOXACIN 250 MG TAB PO SCH (10:07)
[2017-06-24] MEDS: CHOLECALCIFEROL VIT D3 1,000 UNITS TAB PO SCH (10:07)
[2017-06-24] MEDS: METOPROLOL TARTRATE 25 MG TAB PO SCH (10:08)
--- NOTE | 2017-06-24 10:45 | PDIAF ---
- Diagnosis Diagnosis: s/p MVR, AVR, CABG, septal myectomy, liver injury, AMS Code Status: Full Code - Medication Management Discharge Medications: Medications to Continue on Transfer Cholecalciferol Vit D3 [Vitamin D3 (*)] 2,000 units PO DAILY 02/16/17 [Last Taken Unknown] Levothyroxine [Synthroid 137 mcg (*)] 137 mcg PO DAILY06 02/16/17 [Last Taken Unknown] Multivitamins [Multivitamin (*)] 1 each PO DAILY 02/16/17 [Last Taken Unknown] Herbals/Supplements -Info Only 1 ea PO DAILY 02/18/17 [Last Taken Unknown] Sodium Cl Nasal [[place] (*)] 1 spray EACHNARE DAILY PRN 06/04/17 [Last Taken Unknown] Aspirin [Aspirin 81mg (*)] 81 mg PO DAILY #0 tab.chew 06/24/17 [Last Taken Unknown] Furosemide [Lasix 40 MG (*)] 40 mg PO DAILY #30 tab 06/24/17 [Last Taken Unknown ] Metoprolol Tartrate [Lopressor 25 mg (*)] 12.5 mg PO BID #60 tab 06/24/17 [Last Taken Unknown] Potassium Cl [Klor-Con 20 meq (*)] 20 meq PO DAILY #30 tab 06/24/17 [Last Taken Unknown] Warfarin Sodium [Coumadin] 5 mg PO DAILY AT 4PM #60 tablet 06/24/17 [Last Taken Unknown] Discharge Medications: Refer to the Discharge Home Medication list for PRN reason. PICC Care - Routine: N/A - Orders Services needed: Home Care, Registered Nurse, Physical Therapy, Occupational Therapy Home Care Face to Face: I certify that this patient was under my care and that I had the required [id number] encounter meeting the encounter requirements on the discharge day. My findings support the fact that the patient is homebound as defined in Home Care Face to Face Continued: CMS Chapter 7 Medicare Benefits Manual 30.1.1 , The condition of the patient is such that there exists a normal inability to leave home and consequently, leaving home would require a considerable and taxing effort. Isolation Type: None Oxygen: Room Air Diet Recommendation: cardiac -low fat low salt, fluid restriction (use comment for amount) (2 liters per day) Diet Texture: Regular Texture Diet, Thin Liquids, Meds Whole w/Liquids Weigh Patient: daily Schwartz: Not applicable Additional Instructions: Discharge Instructions: Call [facility] cardiac rehab to enroll in phase 2 classes if not already arranged. Sternal precautions x 4 weeks. Avoid lifting > 10lbs with an outstretched arm. Avoid push/pull activities. No driving until cleared by surgery. Elevate low legs at rest. Avoid prolonged standing or dangling. Cleanse wounds once daily with soap and water. Avoid immersion (pool, hot tub, bath) until scabs off. Ok to leave all wounds open to air. Avoid creams or ointments until scabs fall off. Log daily vital signs once home: weight, heart rate, blood pressure. Call [facility] for overnight weight gain > 2lbs, weekly gain > 5lbs or worsening leg swelling. Call [facility] for resting heart rate > 140 OR for systolic blood pressure consistently < 90 or > 140. Chest x-ray Instructions: Please obtain a chest xray prior to surgical appointment. Chest x-rays dont require an appointment. Come to the Emergency Room entrance at the [facility] location. Sign in at the computer kiosk in the entryway. You will be given a number and may sit in the waiting area until called. You will be registered and directed to the Imaging desk on the 1st floor. This process can take up to an hour. Make sure you allow enough time before your appointment to have your x-ray taken. - Labs/Radiology CBC w/diff Date: 06/29/17 CMP Date: 06/29/17 PT/INR Date: 06/18/17 (Measure daily. INR goal 2-3. Call [facility] for Coumadin dosing instructions ([phone])) Imaging Orders: CXR on 06/30 at [facility] Call or Fax Lab and Imaging Results to: Harleen Nuñez - Follow Up Care Current Providers and Referrals: MARYANNE ESTRADA [Primary Care Provider] - Dandy Rush DO [Doctor of Osteopathy] - 06/30/17 11:00 am
[2017-06-24 11:53] VITALS: BP 101/60
--- NOTE | 2017-06-24 12:37 | ASDISCHSUM ---
Discharge Information Plan Status:Home with Home Health Medically Cleared to Leave:06/24/2017 Discharge Date:06/24/2017 CM D/C Disposition:Home, Routine, Self-Care ADT D/C Disposition:Home Health Service Projected Discharge Date:06/22/2017 11:00 AM Transportation at D/C:Family Discharge Delay Reason: Follow-Up Date:06/22/2017 11:00 AM Discharge Slot: Final Diagnosis: Placement Information Referral Type:*Longterm/SNF Referral ID:[id number] Provider Name: Address 1: Phone Number: Address 2: Fax Number: City: Selection Factors: State: Referral Type:*Home Health Care Services Referral ID:[id number] Provider Name:[facility] Address 1:[address] Address 2: City:[place] Selection Factors: State:[place] Patient Contact Information Contact Name:GEM Relationship: Address:[address] City:[place] Alternate Phone: State/Zip Code:[place] [address] Email: Financial Information Financial Class:Medicare Primary Plan Desc:MEDICARE INPATIENT Primary Plan Number:[id number] Secondary Plan Desc:[employer]/ERICKA SUPPLEMENT Secondary Plan Number:[id number] Assessment Information LACE LACE Length of stay for Answers: 7-13 days current admission Acuity / Level of Answers: Yes Care: Did the patient have an inpatient admission? Comorbidities - select Answers: Coronary Artery Disease all that apply Other Notes: severe mitral regurg, moderate aortic insufficiency # of Emergency department Answers: 1-2 visits in the last 6 months Score: 12 Date Signed: 06/24/2017 12:36 PM Electronically Signed By:Bety Welch RN [facility] CM Progress Note CM Note CM Note Notes: Patient is POD #1 MVR, AVR, CABGx2. She is extubated and stable in the ICU, although she's been mildly agitated. Per RN and MD history, patient has short term memory/attention span issues. Patient herself endorses this; says they began after she had back surgery in March. Her has not been in yet to corroborate this history. PT/OT have been ordered and will evaluate today. Discharge needs TBD, Case Management will follow. Date Signed: 06/13/2017 10:38 AM Electronically Signed By:Abi Welch RN [facility] Progress Note CM Note CM Note Notes: POD#3 of a CABG x 3, AVR, MVR, more confused today. Questions answered by MD's in Rounds, not needing "Family Meeting" today. Date Signed: 06/16/2017 01:58 PM Electronically Signed By:Pao Luna LCSW [facility] Progress Note CM Note CM Note Notes: CM spoke w/ WARNER Jackson regarding d/c POC. Anticipate d/c for Thursday. CM met w/ pt and for dispo planning. PT is recommending SNF. [facility]. CM completed non triggering pasrr. [facility] does not have a bed available for pt. [facility] can accept pt. Monica from [facility] will stop by to see pt. CM notified pt and of the acceptance and encouraged a tour of the facility. CM to follow. Plan: [facility] Date Signed: 06/19/2017 02:39 PM Electronically Signed By:MAXIMILIANO Lopez [facility] Progress Note CM Note CM Note Notes: 06/22/2017 Case Management Note Reviewed chart, discussed with Mecca HYLTON. Pt may d/c tomorrow. Notified [facility] via phone. Case Management d/c poc: to [facility] Case Management to follow. Date Signed: 06/22/2017 12:28 PM Electronically Signed By:Bety Welch RN [facility] CM Progress Note CM Note CM Note Notes: 06/23/2017 Case Management Note Met w/pt to discuss PT and OT recommendations for home care. Pt lives outside of [place]". Contacted [facility]. Faxed referral. [facility] able to service pt. Confirmed address. Case Management d/c poc: [facility] MARTÍN PT OT Case Management to follow. Date Signed: 06/23/2017 02:05 PM Electronically Signed By:Bety Welch RN Case Management Discharge Plan Note Case Management Discharge Discharge Order Complete? Answers: Yes Patient to Obtain Answers: via Family Medications Transportation Arranged Answers: Family/Friends Faxed Final Orders Answers: Yes Agency/Facility Transfer Answers: Yes Report Printed & Faxed to Receiving Agency Family Notified Answers: Yes Notes: in room Discharge Comments Notes: 06/24/2017 Case Management Note Notified [facility] of d/c. Final orders faxed. RN to call report. Family to transport home. Date Signed: 06/24/2017 12:35 PM Electronically Signed By:Bety Welch RN Intervention Information Intervention Type:*Incorrect Registration Date of Service:06/11/2017 04:34 PM Patient Type:Observation Staff Member:MARTÍN Yates, Brandi Hours: Discipline: Severity: Comment:
[2017-06-24] MEDS ORDERED: WARFARIN SODIUM 5 MG TAB PO ONE (12:41)
[2017-06-24] MEDS ORDERED: WARFARIN SODIUM 5 MG TAB ONE (15:16)
--- NOTE | 2017-06-24 17:43 | PDDCSUM ---
Discharge Summary Discharge Summary: ADMISSION DATE: 06/11/17 DISCHARGE DATE: 06/24/17 ADMISSION DIAGNOSES: 1. CAD 2. Moderate AI 3. Severe MR 4. HOCM with LVOT obstruction and CARTER 5. Dementia DISCHARGE DIAGNOSES: 1. CAD 2. Moderate AI 3. Severe MR 4. HOCM with LVOT obstruction and CARTER 5. Dementia with post-op exacerbation 6. Acute blood loss anemia 7. Liver injury with metabolic encephalopathy and acute AMS 8. Thrombocytopenia with possible [facility] 1. Hematology 2. GI PROCEDURES 06/12/17, Dandy Rush: 1. Extended septal myectomy 2. AVR with #19 Magna bioprosthesis 3. MVR with #25 Magna bioprosthesis 4. CABG x2 (ANDERS-LAD, SVG-RCA) 5. Ligation left atrial appendage 06/11/17, Rylan Vargas 1. Left heart catheterization HOSPITAL COURSE BY PROBLEM LIST 1. CAD - s/p CABG x2. Incidentally found on pre-op work-up. Continue beta- kailee, aspirin. Statin stopped d/t liver injury. 2. Moderate AI - s/p bioprosthetic AVR. Thromboprophylaxis with ASA. 3. Severe MR - s/p bioprosthetic MVR. Thromboprophylaxis with ASA with Coumadin , INR goal 2-3, duration 3 months. 4. HOCM with LVOT obstruction and CARTER - resolution s/p extended septal myectomy. 5. Dementia - pre-op short-term memory issues with post-op exacerbation and return to baseline with supportive care. 6. Acute blood loss anemia - stable s/p 1U PRBC transfusion. 7. Liver injury with metabolic encephalopathy and acute AMS - rise in AST and ALT and associated metabolic encephalopathy d/t possible ischemic liver injury. Enzymes with plateau and downtrend with resolution in AMS. All home medications with liver clearance stopped. Will recheck LFTs prior to post-op visit and consider restarting home medications. 8. 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 Confirmatory test pending. Plan for outpatient f/u with Hematology for further management. Continue Coumadin with INR 2-3, goal duration to be determined. CONDITION Good DISPOSITION Home with [facility] Pt was instructed on sternal precautions, activity limitations, and which problems to call [facility] with. Please see Discharge Plan and Interagency Discharge Form in chart for specifics. DISCHARGE MEDICATIONS Continue: Cholecalciferol Vit D3 [Vitamin D3 (*)] 2,000 units PO DAILY Levothyroxine [Synthroid 137 mcg (*)] 137 mcg PO Multivitamins [Multivitamin (*)] 1 each PO DAILY Herbals/Supplements -Info Only 1 ea PO DAILY Sodium Cl Nasal [[place] (*)] 1 spray EACHNARE DAILY PRN New: Aspirin [Aspirin 81mg (*)] 81 mg PO DAILY Furosemide [Lasix 40 MG (*)] 40 mg PO DAILY Metoprolol Tartrate [Lopressor 25 mg (*)] 12.5 mg PO BID Potassium Cl [Klor-Con 20 meq (*)] 20 meq PO DAILY Warfarin Sodium [Coumadin] 5 mg PO DAILY AT 4PM Aspirin 325 mg PO Q6H prn pain Stop: Pravachol, Paxil, Calan, Miralax, Mucinex, Gaviscon, Zyrtec, Protonix, Tylenol PENDING STUDIES/LABS 1. CXR, CMP, CBC, INR prior to surgical follow-up 2. INR 06/25 with further management as per [facility] 3. Confirmatory HIT test pending FOLLOW-UP 1. Dandy Rush, 06/23/17, 11:30 PM 2. Cardiology, GI, hematology to be arranged
== END 2017-06-24 15:38 | disposition home health service (06) | DRG 216 ==
LOC: FCATH 09:20 → F2W 11:26 → OBSVTOIN 16:25 → F2N 06-12 10:40 → F2W 06-18 14:03
PROVIDERS: ADMIT Thoracic Surgery (Cardiothoracic Vascular Surgery); ATTEND Thoracic Surgery (Cardiothoracic Vascular Surgery)
PROC: 4A023N7 Measurement of Cardiac Sampling and Pressure, Left Heart, Percutaneous Approach (ICD-10-PCS; 2017-06-11)
PROC: B2151ZZ Fluoroscopy of Left Heart using Low Osmolar Contrast (ICD-10-PCS; 2017-06-11)
PROC: B2111ZZ Fluoroscopy of Multiple Coronary Arteries using Low Osmolar Contrast (ICD-10-PCS; 2017-06-11)
PROC: 30233N1 Transfusion of Nonautologous Red Blood Cells into Peripheral Vein, Percutaneous Approach (ICD-10-PCS; 2017-06-11)
PROC: 02B Heart and Great Vessels, Excision (ICD-10-PCS; principal; 2017-06-12 12:45)
PROC: 02RF08Z Replacement of Aortic Valve with Zooplastic Tissue, Open Approach (ICD-10-PCS; principal; 2017-06-12 12:45)
PROC: 5A1221Z Performance of Cardiac Output, Continuous (ICD-10-PCS; principal; 2017-06-12 12:45)
PROC: 02L70ZK Occlusion of Left Atrial Appendage, Open Approach (ICD-10-PCS; principal; 2017-06-12 12:45)
PROC: 02100Z9 Bypass Coronary Artery, One Artery from Left Internal Mammary, Open Approach (ICD-10-PCS; principal; 2017-06-12 12:45)
PROC: 02RG08Z Replacement of Mitral Valve with Zooplastic Tissue, Open Approach (ICD-10-PCS; principal; 2017-06-12 12:45)
PROC: 02BM0ZZ Excision of Ventricular Septum, Open Approach (ICD-10-PCS; principal; 2017-06-12 12:45)
PROC: 021009W Bypass Coronary Artery, One Artery from Aorta with Autologous Venous Tissue, Open Approach (ICD-10-PCS; principal; 2017-06-12 12:45)
DX: I08.0 Rheumatic disorders of both mitral and aortic valves (principal); I50.9 Heart failure, unspecified; I25.119 Atherosclerotic heart disease of native coronary artery with unspecified angina pectoris; I42.1 Obstructive hypertrophic cardiomyopathy; G93.41 Metabolic encephalopathy; D62 Acute posthemorrhagic anemia; K91.82 Postprocedural hepatic failure; J98.11 Atelectasis; D75.82 Heparin induced thrombocytopenia (HIT); E03.9 Hypothyroidism, unspecified; I10 Essential (primary) hypertension; E78.5 Hyperlipidemia, unspecified; M54.5 Low back pain; D64.9 Anemia, unspecified; F03.90 Unspecified dementia, unspecified severity, without behavioral disturbance, psychotic disturbance, mood disturbance, and anxiety; Z86.73 Personal history of transient ischemic attack (TIA), and cerebral infarction without residual deficits; Z96.642 Presence of left artificial hip joint; Z85.3 Personal history of malignant neoplasm of breast
CPT/HCPCS: 82947-QW; 83010-90; 86022-90; 86255-90; 86708-90; 86709-90; 92507-GN; 92523-GN; 92526-GN; 92610-GN; 97116-GP; 97162-GP; 97166-GO; 97530-GO; 97530-GP; 97535-GO; C1769; G0472; G0515-GO; G8978-GP-CI; G8978-GP-CK; G8979-GP-CH; G8979-GP-CI; G8987-GO-CM; G8988-GO-CK; G8989-GO-CI; G8996-GN-CI; G8997-GN-CH; G8998-GN-CH; G9168-GN-CJ; G9169-GN-CI; J0153; J0282; J0690; J0883; J1265; J1644; J1815; J1940; J2001; J2150; J2250; J2260; J2270; J2370; J2405; J2440; J2704; J2720; J2930; J3010; J3475; J3480; J7060; P9016; P9041; Q9967

== ENCOUNTER → 2017-06-30 | Outpatient (CLI) | payer OTHER, MEDICARE | LOC: FIMAGING 10:08 | PROVIDERS: ATTEND Thoracic Surgery (Cardiothoracic Vascular Surgery) | DX: J90 Pleural effusion, not elsewhere classified (principal); I51.7 Cardiomegaly; I27.20 Pulmonary hypertension, unspecified; Z95.1 Presence of aortocoronary bypass graft; Z95.2 Presence of prosthetic heart valve; Z98.890 Other specified postprocedural states ==

== ENCOUNTER → 2017-10-13 | Outpatient (CLI) | payer OTHER, MEDICARE | DX: Z03.89 Encounter for observation for other suspected diseases and conditions ruled out (principal); Z98.1 Arthrodesis status; M50.322 Other cervical disc degeneration at C5-C6 level; M51.36 Other intervertebral disc degeneration, lumbar region ==

== ENCOUNTER → 2017-11-11 | Outpatient (CLI) | payer OTHER, MEDICARE | LOC: FIMAGING 15:37 | PROVIDERS: ATTEND Physician Assistant | DX: M48.07 Spinal stenosis, lumbosacral region (principal); M48.061 Spinal stenosis, lumbar region without neurogenic claudication; M43.14 Spondylolisthesis, thoracic region; M43.16 Spondylolisthesis, lumbar region; Z98.1 Arthrodesis status ==

== ENCOUNTER → 2018-03-16 | Outpatient (CLI) | payer OTHER, MEDICARE | LOC: FIMAGING 14:00 | PROVIDERS: ATTEND Internal Medicine Interventional Cardiology | DX: Z98.1 Arthrodesis status (principal) ==

== ENCOUNTER → 2018-04-06 | Outpatient (CLI) | payer OTHER, MEDICARE | LOC: BMCIMAGING 14:10 | PROVIDERS: ATTEND Internal Medicine Endocrinology, Diabetes & Metabolism | DX: Z13.820 Encounter for screening for osteoporosis (principal); M81.0 Age-related osteoporosis without current pathological fracture ==

== ENCOUNTER → 2018-05-19 | Outpatient (CLI) | payer OTHER, MEDICARE | LOC: BMCIMAGING 12:24 | PROVIDERS: ATTEND Internal Medicine Hematology & Oncology | DX: Z12.31 Encounter for screening mammogram for malignant neoplasm of breast (principal) ==